=== PATIENT | male | born 1950 | race Caucasian/White ===

== ENCOUNTER 2016-06-27 18:10 | Inpatient (IN) | payer BC ==
[2016-06-27 18:31] LABS: Anisocytosis Slight; Basophils % (A) 0 %; CHCM 30.7; Eosinophils % (A) 0 %; HCT 26.8 % (39.0-53.0); HDW 2.34; HGB 8.6 gm/dL (13.0-17.5); Hypochromasia Slight; Luc # (Auto) 0.03; Luc % (Auto) 2; Lymphocytes # (A) 0.3 k/uL (1.0-4.8); Lymphocytes % (A) 19 %; MCH 29.3 pg (25.0-35.0); MCHC 31.9 g/dL (31.0-37.0); MCV 91.8 fL (80.0-100.0); Mean Platelet Volume 8.2; Monocytes % (A) 3 %; Neutrophils # (A) 1.1 k/uL (1.3-7.7); Neutrophils % (A) 76 %; RBC 2.92 m/uL (4.30-5.90); RDW 16.2 % (11.5-15.5); WBC (Perox) 1.49
[2016-06-27 18:35] LABS: WBC 1.4 k/uL (3.8-10.6)
--- NOTE | 2016-06-27 18:35 | ED ---
GI Bleed HPI - General Stated complaint: GI Bleed Time Seen by Provider: 06/27/16 18:10 Source: patient, EMS, RN notes reviewed Mode of arrival: EMS Limitations: no limitations - History of Present Illness Initial comments: Is a 66-year-old male with a history of colon cancer who is on chemotherapy who they say chemotherapy today who states he had the onset of blood per rectum today he was brought in by EMS for evaluation. He has had some left lower quadrant pain he had some nausea and vomiting last couple days no blood however. No other complaints he has had this before apparently. He wanted to get it before got too bad. He denies any chest pain shortness breath or dizziness at this time MD complaint: blood streaked stool - Related Data Home Medications Medication Instructions Recorded Confirmed ALPRAZolam [Xanax] 1 mg PO BID PRN 04/07/16 06/27/16 Diphenoxylate HCl/Atropine 2 tab PO BID PRN 04/07/16 06/27/16 [Lomotil] Metoprolol Tartrate [Lopressor] 150 mg PO BID 04/07/16 06/27/16 Pantoprazole Sodium [Protonix] 40 mg PO DAILY 04/07/16 06/27/16 Rivaroxaban [Xarelto] 20 mg PO HS 04/07/16 06/27/16 Zolpidem [Ambien] 10 mg PO HS 04/07/16 06/27/16 Fenofibrate,Micronized 134 mg PO QAM 04/08/16 06/27/16 [Fenofibrate] Lisinopril [Zestril] 2.5 mg PO DAILY 06/27/16 06/27/16 Prochlorperazine [Compazine] 10 mg PO Q6H PRN 06/27/16 06/27/16 fentaNYL 75MCG/HR PATCH [Duragesic 1 patch TRANSDERM Q72H 06/27/16 06/27/16 75MCG/HR] oxyCODONE-APAP 10-325MG [Percocet 1 tab PO Q4H PRN 06/27/16 06/27/16 10-325 mg] Allergies Allergy/AdvReac Type Severity Reaction Status Date / Time No Known Allergies Allergy Verified 06/27/16 18:44 Review of Systems ROS Statement: Those systems with pertinent positive or pertinent negative responses have been documented in the HPI. ROS Other: All systems not noted in ROS Statement are negative. Past Medical History Past Medical History: Atrial Fibrillation, Cancer, Deep Vein Thrombosis (DVT), Hypertension Additional Past Medical History / Comment(s): colon CA, former heavy drinker, GI bleed History of Any Multi-Drug Resistant Organisms: None Reported Additional Past Surgical History / Comment(s): part of bowel removed Past Anesthesia/Blood Transfusion Reactions: No Reported Reaction Past Psychological History: No Psychological Hx Reported Smoking Status: Former smoker Past Alcohol Use History: Heavy Past Drug Use History: None Reported - Past Family History Father History Unknown: Yes Mother History Unknown: Yes General Exam - General Exam Comments Initial Comments: This is a well-developed well-nourished awake alert oriented x 3 male Limitations: no limitations General appearance: alert, in no apparent distress Head exam: Present: atraumatic, normocephalic, normal inspection Eye exam: Present: PERRL, EOMI, other (Pale conjunctiva). Absent: scleral icterus, conjunctival injection, periorbital swelling ENT exam: Present: normal exam, mucous membranes moist Neck exam: Present: normal inspection. Absent: tenderness, meningismus, lymphadenopathy Respiratory exam: Present: normal lung sounds bilaterally. Absent: respiratory distress, wheezes, rales, rhonchi, stridor Cardiovascular Exam: Present: regular rate, normal rhythm, normal heart sounds. Absent: systolic murmur, diastolic murmur, rubs, gallop, clicks GI/Abdominal exam: Present: soft, tenderness (Mild left lower quadrant tenderness palpation no guarding or rebound.), normal bowel sounds. Absent: distended, guarding, rebound, rigid Rectal exam: Present: heme (+) stool, bloody stool (Burgundy-colored stool erythema around the anal verge with skin breakdown noted) Extremities exam: Present: normal inspection, full ROM, normal capillary refill. Absent: tenderness, pedal edema, joint swelling, calf tenderness Back exam: Present: normal inspection Neurological exam: Present: alert, oriented X3, CN II-XII intact Psychiatric exam: Present: normal affect, normal mood Skin exam: Present: warm, dry, intact, pallor. Absent: rash Course Vital Signs 06/27/16 06/27/16 06/27/16 18:13 18:43 19:13 Temperature 97.5 F L Pulse Rate 82 82 78 Respiratory 18 Rate Blood Pressure 120/75 160/96 152/78 O2 Sat by Pulse 100 99 100 Oximetry 06/27/16 06/27/16 20:13 20:49 Temperature Pulse Rate 80 78 Respiratory 20 Rate Blood Pressure 127/85 150/82 O2 Sat by Pulse 100 100 Oximetry - Reevaluation(s) Reevaluation #1: 06/27/16 20:54 Patient urinated and did also had hematuria which was just discovered at this time. He had not had it previously. Medical Decision Making - Medical Decision Making I did discuss the findings with the patient and with Dr. Acharya the patient will be admitted with consultation by - Lab Data Result diagrams: 06/27/16 18:21 06/27/16 18:21 Lab Results 06/27/16 06/27/16 06/27/16 Range/Units 18:21 18:21 18:21 WBC 1.4 L* (3.8-10.6) k/uL RBC 2.92 L (4.30-5.90) m/uL Hgb 8.6 L (13.0-17.5) gm/dL Hct 26.8 L (39.0-53.0) % MCV 91.8 (80.0-100.0) fL MCH 29.3 (25.0-35.0) pg MCHC 31.9 (31.0-37.0) g/dL RDW 16.2 H (11.5-15.5) % Plt Count 130 L (150-450) k/uL Neutrophils % 76 % Lymphocytes % 19 % Monocytes % 3 % Eosinophils % 0 % Basophils % 0 % Neutrophils # 1.1 L (1.3-7.7) k/uL Lymphocytes # 0.3 L (1.0-4.8) k/uL Monocytes # 0.0 (0-1.0) k/uL Eosinophils # 0.0 (0-0.7) k/uL Basophils # 0.0 (0-0.2) k/uL Hypochromasia Slight Anisocytosis Slight PT (9.0-12.0) sec INR (<1.1) APTT (22.0-30.0) sec Sodium 139 (137-145) mmol/L Potassium 4.3 (3.5-5.1) mmol/L Chloride 106 (98-107) mmol/L Carbon Dioxide 25 (22-30) mmol/L Anion Gap 8 mmol/L BUN 14 (9-20) mg/dL Creatinine 0.79 (0.66-1.25) mg/dL Est GFR (MDRD) Af Amer >60 (>60 ml/min/1.73 sqM) Est GFR (MDRD) Non-Af >60 (>60 ml/min/1.73 sqM) Glucose 108 H (74-99) mg/dL Calcium 7.9 L (8.4-10.2) mg/dL Magnesium 1.0 L* (1.6-2.3) mg/dL Total Bilirubin 0.8 (0.2-1.3) mg/dL AST 32 (17-59) U/L ALT 26 (21-72) U/L Alkaline Phosphatase 60 (38-126) U/L Total Creatine Kinase 40 L (55-170) U/L CK-MB (CK-2) 0.2 (0.0-2.4) ng/mL CK-MB (CK-2) Rel Index 0.5 Troponin I <0.012 (0.000-0.034) ng/mL Total Protein 5.5 L (6.3-8.2) g/dL Albumin 2.7 L (3.5-5.0) g/dL Stool Occult Blood (Negative) Blood Type Blood Type Confirm Blood Type Recheck Antibody Screen Spec Expiration Date 06/27/16 06/27/16 06/27/16 Range/Units 18:21 18:21 19:32 WBC (3.8-10.6) k/uL RBC (4.30-5.90) m/uL Hgb (13.0-17.5) gm/dL Hct (39.0-53.0) % MCV (80.0-100.0) fL MCH (25.0-35.0) pg MCHC (31.0-37.0) g/dL RDW (11.5-15.5) % Plt Count (150-450) k/uL Neutrophils % % Lymphocytes % % Monocytes % % Eosinophils % % Basophils % % Neutrophils # (1.3-7.7) k/uL Lymphocytes # (1.0-4.8) k/uL Monocytes # (0-1.0) k/uL Eosinophils # (0-0.7) k/uL Basophils # (0-0.2) k/uL Hypochromasia Anisocytosis PT 20.6 H (9.0-12.0) sec INR 2.1 (<1.1) APTT 36.2 H (22.0-30.0) sec Sodium (137-145) mmol/L Potassium (3.5-5.1) mmol/L Chloride (98-107) mmol/L Carbon Dioxide (22-30) mmol/L Anion Gap mmol/L BUN (9-20) mg/dL Creatinine (0.66-1.25) mg/dL Est GFR (MDRD) Af Amer (>60 ml/min/1.73 sqM) Est GFR (MDRD) Non-Af (>60 ml/min/1.73 sqM) Glucose (74-99) mg/dL Calcium (8.4-10.2) mg/dL Magnesium (1.6-2.3) mg/dL Total Bilirubin (0.2-1.3) mg/dL AST (17-59) U/L ALT (21-72) U/L Alkaline Phosphatase (38-126) U/L Total Creatine Kinase (55-170) U/L CK-MB (CK-2) (0.0-2.4) ng/mL CK-MB (CK-2) Rel Index Troponin I (0.000-0.034) ng/mL Total Protein (6.3-8.2) g/dL Albumin (3.5-5.0) g/dL Stool Occult Blood (Negative) Blood Type A Positive Blood Type Confirm A Positive Blood Type Recheck CABO Indicated Antibody Screen NEGATIVE Spec Expiration Date 06/30/2016 - 232006/27/16 Range/Units 20:40 WBC (3.8-10.6) k/uL RBC (4.30-5.90) m/uL Hgb (13.0-17.5) gm/dL Hct (39.0-53.0) % MCV (80.0-100.0) fL MCH (25.0-35.0) pg MCHC (31.0-37.0) g/dL RDW (11.5-15.5) % Plt Count (150-450) k/uL Neutrophils % % Lymphocytes % % Monocytes % % Eosinophils % % Basophils % % Neutrophils # (1.3-7.7) k/uL Lymphocytes # (1.0-4.8) k/uL Monocytes # (0-1.0) k/uL Eosinophils # (0-0.7) k/uL Basophils # (0-0.2) k/uL Hypochromasia Anisocytosis PT (9.0-12.0) sec INR (<1.1) APTT (22.0-30.0) sec Sodium (137-145) mmol/L Potassium (3.5-5.1) mmol/L Chloride (98-107) mmol/L Carbon Dioxide (22-30) mmol/L Anion Gap mmol/L BUN (9-20) mg/dL Creatinine (0.66-1.25) mg/dL Est GFR (MDRD) Af Amer (>60 ml/min/1.73 sqM) Est GFR (MDRD) Non-Af (>60 ml/min/1.73 sqM) Glucose (74-99) mg/dL Calcium (8.4-10.2) mg/dL Magnesium (1.6-2.3) mg/dL Total Bilirubin (0.2-1.3) mg/dL AST (17-59) U/L ALT (21-72) U/L Alkaline Phosphatase (38-126) U/L Total Creatine Kinase (55-170) U/L CK-MB (CK-2) (0.0-2.4) ng/mL CK-MB (CK-2) Rel Index Troponin I (0.000-0.034) ng/mL Total Protein (6.3-8.2) g/dL Albumin (3.5-5.0) g/dL Stool Occult Blood Positive (Negative) Blood Type Blood Type Confirm Blood Type Recheck Antibody Screen Spec Expiration Date - EKG Data -: EKG Interpreted by Me (Atrial fibrillation rate of 80 QRS of 86 QT/QTC of 42 09/24/1960 low-voltag) - Radiology Data Radiology results: report reviewed (Did review the imaging and report or is evidence of a mass left lower quadrant patient does seem aware this), image reviewed Disposition Clinical Impression: Hematochezia, Colon cancer, Anemia Disposition: ADMITTED IP TO THIS HOSP Condition: Stable
[2016-06-27 18:40] LABS: ALT 26 U/L (21-72); AST 32 U/L (17-59); Alkaline Phosphatase 60 U/L (38-126); Anion Gap 8 mmol/L; Blood Urea Nitrogen 14 mg/dL (9-20); Calcium 7.9 mg/dL (8.4-10.2); Carbon Dioxide 25 mmol/L (22-30); Chloride 106 mmol/L (98-107); Glucose 108 mg/dL (74-99); Non-African American GFR(MDRD) >60 (>60 ml/min/1.73 sqM); Potassium 4.3 mmol/L (3.5-5.1); Sodium 139 mmol/L (137-145); Total Bilirubin 0.8 mg/dL (0.2-1.3); Total Protein 5.5 g/dL (6.3-8.2)
[2016-06-27] MEDS: SODIUM CHLORIDE 0.9% 1,000 ML IV STA (18:40)
--- NOTE | 2016-06-27 18:49 | XR ---
EXAMINATION TYPE: XR abdomen 1V DATE OF EXAM: 06/27/2016 6:37 PM COMPARISON: NONE HISTORY: Rectal bleeding TECHNIQUE: 2 views FINDINGS: The bowel gas pattern is normal. There is no sign of intestinal obstruction or pneumoperito neum. Fecal pattern is normal. There are multiple surgical clips in the pelvis on the left side. Lung bases are clear of consolidation. There are no pathologic calcifications over the kidneys. IMPRESSION: Nonacute abdomen.
[2016-06-27 18:56] LABS: INR 2.1 (<1.1); Partial Thromboplastin Time 36.2 sec (22.0-30.0); Prothrombin Time 20.6 sec (9.0-12.0)
[2016-06-27 19:10] LABS: Creatine Kinase 40 U/L (55-170)
[2016-06-27 19:23] LABS: Creatine Kinase MB 0.2 ng/mL (0.0-2.4); Troponin I <0.012 ng/mL (0.000-0.034)
[2016-06-27] MEDS: MAGNESIUM SULFATE-D5W PMX 1 GM in DEXTROSE/WATER 1 100ML.BAG IVPB SCH ×2 (19:47→20:51)
--- NOTE | 2016-06-27 20:26 | CT ---
EXAMINATION TYPE: CT abdomen pelvis wo con DATE OF EXAM: 06/27/2016 8:01 PM COMPARISON: NONE HISTORY: PT states of blood in stool. Hx of colon CA and part of bowel removed. CT DLP: 356.1 mGycm Automated exposure control for dose reduction was used. TECHNIQUE: Helical acquisition of images was performed from the lung bases through the pelvis. FINDINGS: Lung bases are clear of consolidation. There is no pleural effusion. Heart is enlarged. There is no p ericardial effusion. There is mild ascites. Liver shows no focal defect. Spleen shows no focal defect. There is atheroscle rotic vascular calcification. Gallbladder is dilated. Gallbladder measures 5 cm in diameter. Bile mecca ts are not dilated. There is no sign of a pancreatic mass. There is an approximate 9 x 6 cm soft tissue mass involving the left lower quadrant that is posterior and lateral to the lower descending colon. There is number Katie inferior vena cava filter noted. Ther e is moderate atherosclerotic vascular calcification involving the abdominal aorta and iliac arteries . Bladder distends smoothly. There is apparent lateral displacement of the left psoas muscle. There i s a left paraspinal area of density contiguous with the left lower quadrant mass. There is a right inguinal hernia that appears to contain the right colon. I see no bowel obstruction. There are no dilated loops. The lower extent of the hernia is not demonstrated. There is apparent ri ght scrotal hydrocele. There is a mild left-sided hydronephrosis and hydroureter. This is probably due to obstruction by the left lower quadrant mass. The right kidney shows normal size without hydronephrosis.. IMPRESSION: THERE IS A LARGE MASS IN THE LEFT LOWER QUADRANT WITH SURGICAL CLIPS THAT COULD BE PRIMARY COLON TUMO R OR RECURRENT TUMOR. THERE IS MASS EXTENSION INTO THE LEFT PARASPINAL REGION AND DISPLACEMENT OF THE PSOAS MUSCLE. THERE IS INVOLVEMENT OF THE LEFT URETER WITH OBSTRUCTION OF LEFT URETER AND LEFT-SIDED HYDRONEPHROSIS. MODERATE FREE FLUID WITH A RIGHT-SIDED SCROTAL HYDROCELE AND LARGE SCROTAL HERNIA THAT CONTAINS BOWEL . CARDIOMEGALY. EXTENSIVE ATHEROSCLEROTIC VASCULAR DISEASE. DILATED GALLBLADDER SUGGESTIVE OF CHOLECYSTITIS.
[2016-06-27] MEDS ORDERED: ONDANSETRON 4 MG/2 ML VIAL IVP PRN (20:55)
[2016-06-27] MEDS ORDERED: NALOXONE 0.4 MG/ML 1 ML VIAL IV PRN (20:55)
[2016-06-27] MEDS ORDERED: ALPRAZolam 0.5 MG TAB PO PRN (21:00)
[2016-06-27] MEDS ORDERED: SODIUM CHLORIDE 0.9% 1,000 ML IV SCH (21:00)
[2016-06-27] MEDS ORDERED: ZOLPIDEM 10 MG TAB PO SCH (21:00)
--- NOTE | 2016-06-27 21:55 | US ---
EXAMINATION TYPE: US abdomen limited DATE OF EXAM: 06/27/2016 9:34 PM COMPARISON: CT in PACS CLINICAL HISTORY: Pain. Blood in stool, history of colon CA. Mass visualized in the LLQ on CT scan to day. TECHNOLOGIST IMPRESSION: Heterogeneous mass like area visualized within the LLQ measuring 11.7 x 8.8 x 8.3 cm. There is venous and arterial flow visualized within this area. Unable to visualize free f luid that was seen on CT IMPRESSION: Large left lower quadrant mass appears solid and there is no evidence of a retroperitone al hematoma. This is consistent with a tumor mass.
[2016-06-27 23:45] VITALS: BMI 19.6
[2016-06-28 01:00] LABS: Anisocytosis Slight; Basophils % (A) 0 %; CH 28.1; CHCM 30.5; Eosinophils % (A) 0 %; HCT 26.4 % (39.0-53.0); HDW 2.22; HGB 8.1 gm/dL (13.0-17.5); Hypochromasia Slight; Luc # (Auto) 0.09; Luc % (Auto) 4; Lymphocytes # (A) 0.5 k/uL (1.0-4.8); Lymphocytes % (A) 19 %; MCH 28.3 pg (25.0-35.0); MCHC 30.6 g/dL (31.0-37.0); MCV 92.5 fL (80.0-100.0); Mean Platelet Volume 9.1; Monocytes # (A) 0.1 k/uL (0-1.0); Monocytes % (A) 5 %; Neutrophils # (A) 1.8 k/uL (1.3-7.7); Neutrophils % (A) 72 %; RBC 2.85 m/uL (4.30-5.90); RDW 16.1 % (11.5-15.5); WBC 2.4 k/uL (3.8-10.6); WBC (Perox) 2.69
[2016-06-28] MEDS: PANTOPRAZOLE 40 MG/10 ML VIAL IV SCH ×2 (01:46→08:33)
[2016-06-28] MEDS: oxyCODONE-APAP 10-325MG 1 EACH TAB PO PRN ×2 (02:24→08:32)
[2016-06-28 03:25] LABS: Glucose,Whole Blood 102 mg/dL (75-99)
[2016-06-28] MEDS ORDERED: NALOXONE 0.4 MG/ML 1 ML VIAL IV PRN (03:34)
[2016-06-28] MEDS: SODIUM CHLORIDE 0.9% 1,000 ML IV STA (03:43)
[2016-06-28] MEDS: METOPROLOL TARTRATE 50 MG TAB PO SCH ×2 (04:07→08:36)
[2016-06-28 05:20] LABS: Anion Gap 7 mmol/L; Blood Urea Nitrogen 13 mg/dL (9-20); Calcium 8.2 mg/dL (8.4-10.2); Carbon Dioxide 26 mmol/L (22-30); Chloride 107 mmol/L (98-107); Glucose 96 mg/dL (74-99); Magnesium 1.5 mg/dL (1.6-2.3); Non-African American GFR(MDRD) >60 (>60 ml/min/1.73 sqM); Phosphorous 2.6 mg/dL (2.5-4.5); Potassium 3.4 mmol/L (3.5-5.1); Sodium 140 mmol/L (137-145)
[2016-06-28] MEDS ORDERED: Potassium Replacement Protocol 1 EACH MISC MISCELLANE PRN (05:31)
[2016-06-28] MEDS ORDERED: Magnesium Replacement Protocol 1 EACH MISC MISCELLANE PRN (05:31)
[2016-06-28 05:36] LABS: Anisocytosis Slight; Basophils % (A) 0 %; CHCM 30.5; Eosinophils % (A) 0 %; HCT 24.1 % (39.0-53.0); HDW 2.19; HGB 7.5 gm/dL (13.0-17.5); Hypochromasia Slight; Luc # (Auto) 0.09; Luc % (Auto) 4; Lymphocytes # (A) 0.5 k/uL (1.0-4.8); Lymphocytes % (A) 21 %; MCH 28.8 pg (25.0-35.0); MCHC 31.3 g/dL (31.0-37.0); MCV 92.1 fL (80.0-100.0); Mean Platelet Volume 8.2; Monocytes # (A) 0.1 k/uL (0-1.0); Monocytes % (A) 6 %; Neutrophils # (A) 1.7 k/uL (1.3-7.7); Neutrophils % (A) 70 %; RBC 2.62 m/uL (4.30-5.90); RDW 16.3 % (11.5-15.5); WBC 2.4 k/uL (3.8-10.6); WBC (Perox) 2.44
[2016-06-28] MEDS: MAGNESIUM SULFATE-D5W PMX 1 GM in DEXTROSE/WATER 1 100ML.BAG IVPB SCH ×2 (06:07→08:36)
[2016-06-28] MEDS: POTASSIUM CHLORIDE ER 20 MEQ TAB.ER PO SCH ×2 (06:07→08:32)
[2016-06-28] MEDS ORDERED: LISINOPRIL 2.5 MG TAB PO SCH (09:00)
--- NOTE | 2016-06-28 09:40 | P.CNPUL ---
History of Present Illness Consult date: 06/28/16 Reason for consult: other Chief complaint: Gastrointestinal bleed History of present illness: This is a 66-year-old male who was admitted to the emergency department. He Axid was admitted to the sixth floor then an 18 was called and he was transferred here to the ICU. I spoke to the 18th nurse last night. He came in primarily with complaints of bleeding from the rectum. The patient that was initially admitted to 6 selective. On forcibly he had some additional bleeding and because of his history and because of his the fact that he was on Zarrella toe, I decided to move him here to the ICU. The patient never received any blood. Patient's hemodynamically stable. First colon cancer he said previous colectomy radiation therapy now chemotherapy. Had recent chemotherapy with one of the oncologist. His primary doctor is Dr. Joaquim Martinez. The patient has issues on is ready to be discharged home. Feeling well. No additional bleeding. No pain. No fever no chills. No nausea vomiting or diarrhea. Review of Systems A 12 point review of system is positive for a GI bleed. Other than that, the review of systems is unremarkable. Past Medical History Past Medical History: Atrial Fibrillation, Cancer, Deep Vein Thrombosis (DVT), Hypertension Additional Past Medical History / Comment(s): colon CA, former heavy drinker, GI bleed History of Any Multi-Drug Resistant Organisms: None Reported Past Surgical History: Bowel Resection, Pacemaker Additional Past Surgical History / Comment(s): colon surgery x2-approx 07/2015, IVC filter-2015 Past Anesthesia/Blood Transfusion Reactions: No Reported Reaction Type of Cardiac Device: Unknown Device Placement Date:: 2012 Past Psychological History: Anxiety, Depression Smoking Status: Current every day smoker Past Alcohol Use History: Heavy Past Drug Use History: None Reported - Past Family History Father History Unknown: Yes Family Medical History: No Reported History Mother History Unknown: Yes Family Medical History: No Reported History Medications and Allergies Home Medications Medication Instructions Recorded Confirmed Type ALPRAZolam [Xanax] 1 mg PO BID PRN 04/07/16 06/27/16 History Diphenoxylate HCl/Atropine 2 tab PO BID PRN 04/07/16 06/27/16 History [Lomotil] Metoprolol Tartrate [Lopressor] 150 mg PO BID 04/07/16 06/27/16 History Pantoprazole Sodium [Protonix] 40 mg PO DAILY 04/07/16 06/27/16 History Rivaroxaban [Xarelto] 20 mg PO HS 04/07/16 06/27/16 History Zolpidem [Ambien] 10 mg PO HS 04/07/16 06/27/16 History Fenofibrate,Micronized 134 mg PO QAM 04/08/16 06/27/16 History [Fenofibrate] Lisinopril [Zestril] 2.5 mg PO DAILY 06/27/16 06/27/16 History Prochlorperazine [Compazine] 10 mg PO Q6H PRN 06/27/16 06/27/16 History fentaNYL 75MCG/HR PATCH [Duragesic 1 patch TRANSDERM Q72H 06/27/16 06/27/16 History 75MCG/HR] oxyCODONE-APAP 10-325MG [Percocet 1 tab PO Q4H PRN 06/27/16 06/27/16 History 10-325 mg] Allergies Allergy/AdvReac Type Severity Reaction Status Date / Time No Known Allergies Allergy Verified 06/27/16 18:44 Physical Exam Osteopathic Statement: *. No significant issues noted on an osteopathic structural exam other than those noted in the History and Physical/Consult. Vitals: Vital Signs Temp Pulse Pulse Resp BP BP Pulse Ox 06/28/16 06:30 77 8 L 150/97 98 06/28/16 06:00 85 24 155/92 99 06/28/16 05:30 60 145/80 06/28/16 05:00 71 12 135/88 100 06/28/16 04:30 68 16 129/77 99 06/28/16 04:00 97.8 F 69 74 13 151/81 98 06/28/16 03:55 97.8 F 74 11 L 151/81 99 06/28/16 03:50 82 16 149/84 99 06/28/16 03:45 71 19 149/84 99 06/28/16 03:40 77 10 L 149/84 99 06/28/16 03:35 79 13 149/84 100 06/28/16 03:30 80 19 173/107 100 06/28/16 03:25 88 30 H 173/107 100 06/28/16 03:20 56 L 24 173/107 99 06/28/16 03:15 17 173/107 98 06/28/16 03:11 5 L 06/27/16 23:11 96.7 F L 74 18 137/78 99 06/27/16 22:54 96.8 F L 84 18 138/90 96 06/27/16 22:13 84 18 131/76 97 06/27/16 21:43 76 18 118/77 96 Intake and Output 06/27/16 06/28/16 06/28/16 22:59 06:59 14:59 Intake Total 300 100 Output Total 0 0 Balance 300 100 Intake: IV 300 100 Sodium Chloride 0.9% 1, 300 100 000 ml @ 100 mls/hr IV . Q10H STA Rx#:[id number] Oral 0 Output: Urine 0 0 Other: Voiding Method Toilet Urinal # Voids 1 # Bowel Movements 1 Weight 71 kg No acute distress, oriented 3. The patient sitting at the bedside with issues. He states he wants to go home. HEENT examination is grossly unremarkable. Mucous membranes are moist. No oral lesions. Neck supple. Full range of motion. No adenopathy or thyromegaly. Cardiovascular examination reveals regular rhythm rate. S1-S2 normal. No S3- S4 or murmur. Lungs reveal clear breath sounds. No wheezes rhonchi or crackles. Abdomen soft bowel sounds are heard. Extremities are intact. Results - Laboratory Findings CBC and BMP: 06/28/16 04:45 06/28/16 04:45 PT/INR, D-dimer PT 20.6 sec (9.0-12.0) H 06/27/16 18:21 INR 2.1 (<1.1) 06/27/16 18:21 Abnormal lab findings: Abnormal Labs 06/28/16 06/28/16 06/28/16 00:38 03:23 04:45 WBC 2.4 L RBC 2.85 L Hgb 8.1 L Hct 26.4 L MCHC 30.6 L RDW 16.1 H Plt Count 144 L Lymphocytes # 0.5 L Potassium 3.4 L POC Glucose (mg/dL) 102 H Calcium 8.2 L Magnesium 1.5 L 06/28/16 04:45 WBC 2.4 L RBC 2.62 L Hgb 7.5 L Hct 24.1 L MCHC RDW 16.3 H Plt Count 118 L Lymphocytes # 0.5 L Potassium POC Glucose (mg/dL) Calcium Magnesium - Diagnostic Findings Chest x-ray: image reviewed (Labs x-rays and medications are all reviewed.) Assessment and Plan (1) GI bleed Status: Acute (2) Anemia Status: Acute (3) Colon cancer Status: Acute (4) Hematochezia Status: Acute Plan: Plan The patient's doing well. The patient's or receiving some IV fluids. We'll continue to watch the hemoglobin. Medications labs are reviewed. The patient wants be discharged home. Feels that the bleeding was secondary to his recent chemotherapy. No additional recommendations are made. He's been hemodynamically stable here. Time with Patient: Greater than 30
[2016-06-28 12:45] VITALS: BP 158/98; PULSE 87; RESP 18; TEMP 98
[2016-06-28] MEDS ORDERED: PHYTONADIONE ORAL 5 MG/5 ML ORAL.SYRG PO STA (14:24)
--- NOTE | 2016-06-28 16:46 | HP ---
This dictation is both H and P and discharge summary. Patient is a 66-year-old who came in with complaints of lower GI bleed. Patient had about 2 episodes at home and 1 episode here and patient had angela blood in the stools and a rectal exam from ER found to have some erosions in the rectal area. Patient occasionally gets constipated. I wanted to keep him here and watch him one more day. Patient is a does not have any more GI bleed except for some streaks of blood whenever he wipes, but patient does not stay in the hospital, wanted to be discharged. Patient is threatening to leave AMA. I will go ahead and discharge the patient I asked him to watch for any blood in the stools. If he has blood in the stools, patient has to come back. Patient is not thrombocytopenic, used to use Xarelto for his atrial fibrillation, which was discontinued because of his previous GI bleed, and patient is not on this medication anymore. Patient's platelet count is okay. Patient received his last chemotherapy for colon cancer about a couple days ago. Patient had abdominal CT done, which showed the cancerous lesions and the cancerous mass the abdomen along with a right-sided inguinal hernia and hydrocele and patient is otherwise hemodynamically stable. Hemoglobin is down to 7.5 from 8.2 when he came in. His baseline hemoglobin appears to be 8.7. Patient has hypokalemia and hypomagnesemia which are being supplemented and patient's INR is still elevated at 2.1, probably due to nutritional vitamin K deficiency. I will give him a dose of vitamin K before he goes. As patient is not in any A. fib., it is probably due to nutritional deficiency of vitamin K and patient will follow with Dr. Krueger as an outpatient. Ideally, the patient needs to stay one more day at least to watch for any bleeding and most probably will need evaluation by Gastroenterology, but patient is not willing to stay here. I counseled him that he needs to take MiraLAX and should not get constipated, which will start his GI bleed again. REVIEW OF SYSTEMS: CONSTITUTIONAL: No fever, no malaise, no fatigue. HEENT: No recent visual problems or hearing problems. Denied any sore throat. CARDIOVASCULAR: No chest pain, orthopnea, PND, no palpitations, no syncope. PULMONARY: No shortness of breath, no cough, no hemoptysis. GASTROINTESTINAL: As described in HPI. NEUROLOGICAL: No headaches, no weakness, no numbness. HEMATOLOGICAL: Denies any bleeding or petechiae. GENITOURINARY: Denies any burning micturition, frequency, or urgency. MUSCULOSKELETAL/RHEUMATOLOGICAL: Denies any joint pain, swelling, or any muscle pain. ENDOCRINE: Denies any polyuria or polydipsia. The rest of the 14 point review of systems is negative. PAST MEDICAL HISTORY: Atrial fibrillation, not on anticoagulation at this point of time. Patient has a DVT in the past as well as hypertension. Patient has an active after that is colon cancer for which patient received chemotherapy, anxiety, depression. The patient does smoke, continues to smoke. Denied any alcohol abuse or any drug abuse. FAMILY HISTORY: Unknown at this time and irrelevant at this point of time. Home medications include: 1. Xanax. 2. Diphenoxylate atropine that is Lomotil, which is being discontinued. 3. Metoprolol and 4. Pantoprazole. 5. Ambien. 6. Fenofibrate. 7. Lisinopril 5. 8. Compazine. 9. Fentanyl patch and 10. Oxycodone. 11. Acetaminophen. ALLERGIES: No known drug allergies. PHYSICAL EXAMINATION: VITAL SIGNS: Temperature 98.0, pulse of 87, respiratory rate of 18, blood pressure is 158/98, saturating at 98% on room air. GENERAL: Patient looks a little bit pale. HEENT: Pupils are round and equally reacting to light. EOMI. No scleral icterus. Patient has conjunctival pallor. Normocephalic, atraumatic. No pharyngeal erythema. No thyromegaly. CARDIOVASCULAR: S1 and S2 present. No murmurs, rubs, or gallops. PULMONARY: Chest is clear to auscultation, no wheezing or crackles. ABDOMEN: Soft, nontender, nondistended, normoactive bowel sounds. No palpable organomegaly. MUSCULOSKELETAL: No joint swelling or deformity. EXTREMITIES: No cyanosis, clubbing, or pedal edema. NEUROLOGICAL: Gross neurological examination did not reveal any focal deficits. SKIN: No rashes. LABORATORY DATA: CBC, CMP are abnormal for mildly low WBC count of 2400 from chemotherapy. It is and actually going up. Platelet count of 182,000 can be due to chemotherapy along with acute GI bleed. Magnesium was corrected after 1.5 and potassium was corrected after 3.4. ASSESSMENT AND PLAN: 1. Lower gastrointestinal bleed, probably due to constipation and erosions. I did not do any rectal exam, as it was already done in emergency room and patient may have hemorrhoids. I asked him to avoid constipation with [id number] MiraLax and Colace and Lomotil will be discontinued. 2. Atrial fibrillation, rate controlled, not on anticoagulation at this time because of the previous gastrointestinal bleed and patient also has deep venous thrombosis in the past. 3. Colon cancer. Completed his chemotherapy a couple days ago. 4. Hypertension. 5. Electrolyte abnormalities, including hypomagnesemia, were corrected and patient will follow with his primary care physician Dr. Bruno March, and his oncologist as an outpatient. Patient is not willing to stay in the hospital at any rate.
--- NOTE | 2016-07-02 19:38 | P.CONS ---
History of Present Illness - Reason for Consult Consult date: 06/28/16 Metastatic colorectal cancer, GI bleed - History of Present Illness The patient is a 65 year old WM with a complicated oncological history. He was diagnosed with rectal sigmoid cancer in 09/01 and had resection in 09/01, with pathology revealing a [id number] lesion with 2 positive nodes. He refused chemotherapy at that time. He then developed recurrence in the left inguial area that grew in size over time. Biopsy was positive for recurrence. He had chemotherapy with FOLFOX in the later part of 2013, and then radiation in [id number], at [place]. He apparently had significant tolerance issues with chemotherapy, including weakness, weight loss, and neuropathy. He was continued on surveilence with a CT scan in 09/21/14 with marked improvement in the left inguinal mass. He presented in 05/08 with GI bleeding, while on Xarelto for a recently diagnosed LLE DVT. He was found to have a recurrence 20 cm from the anal verge on colonoscopy. PET scan in 06/08 showed uptake in 2 distinct retroperitoneal, and peritoneal masses. Chemotherapy was recommended but he refused the same. He was evaluated at [facility]. Given limited sites of disease, a surgical resection was attempted on 09/07/15. This revealed a very large mass in LLQ arising from the anastomotic site growing into the LL abdomen and pelvic side wall. No other areas of involvment was noted. The left colon was able to be resected. However the tumor could only be incompletely resected from the abdominal pelvic wall. Tumor was present in the retroperitoneaum which appeared to be direct extension of the main mass. Biopsy was positive for adenocarcinoma grade 2. 0/21 lymph nodes were involved. The patient was referred here as he wanted to have another opnion. He did want active treatment, and options were discussed. He was referred back to Dr Brooks in [place], who had treated him previously. He had a PET there, and had 1 cycle of infusional chemo in 02/05 ( ? FOLFIRI). His tolerance was very poor, and hospice was recommended. The pt slowly recovered, and decided to come back here to discuss other options. He did want active treatment and FOLFIRI was started back with dose reduction. He is s/p 3 cycles. However he was unable to tolerate this regimen due to severe diarrhea, weakness and poor appetite. Thus he was switched to Camptosar alone, on 06/06/16,a nd is s/p 2 cycles. Cycle 2 was administered on 06/27/16. The pt developed new onset of bright red blood per rectum, and presented to the ER. Hgb was 8.6, and gradually declined to 7.5. WBC was 1.4 and actually increased to 2.1. Plt were > 100. He was admitted for further evaluation and consult placed. The bleeding has ceased. Review of Systems Constitutional: Reports fatigue, Reports poor appetite, Reports weakness, Reports weight loss Eyes: denies blurred vision, denies pain Ears, nose, mouth and throat: Denies headache, Denies sore throat Cardiovascular: Reports dyspnea on exertion Respiratory: Reports dyspnea Gastrointestinal: Reports abdominal pain, Reports hematochezia Genitourinary: Reports as per HPI Musculoskeletal: Reports muscle weakness Integumentary: Denies pruritus, Denies rash Neurological: Reports weakness Psychiatric: Reports anxiety Endocrine: Reports fatigue, Reports weight change Hematologic/Lymphatic: Reports as per HPI Past Medical History Past Medical History: Atrial Fibrillation, Cancer, Deep Vein Thrombosis (DVT), Hypertension Additional Past Medical History / Comment(s): colon CA, former heavy drinker, GI bleed History of Any Multi-Drug Resistant Organisms: None Reported Past Surgical History: Bowel Resection, Pacemaker Additional Past Surgical History / Comment(s): colon surgery x2-approx 07/2015, IVC filter-2015 Past Anesthesia/Blood Transfusion Reactions: No Reported Reaction Type of Cardiac Device: Unknown Device Placement Date:: 2012 Past Psychological History: Anxiety, Depression Smoking Status: Current every day smoker Past Alcohol Use History: Heavy Past Drug Use History: None Reported - Past Family History Father History Unknown: Yes Family Medical History: No Reported History Mother History Unknown: Yes Family Medical History: No Reported History Medications and Allergies Home Medications Medication Instructions Recorded Confirmed Type ALPRAZolam [Xanax] 1 mg PO BID PRN 04/07/16 06/27/16 History Metoprolol Tartrate [Lopressor] 150 mg PO BID 04/07/16 06/27/16 History Pantoprazole Sodium [Protonix] 40 mg PO DAILY 04/07/16 06/27/16 History Zolpidem [Ambien] 10 mg PO HS 04/07/16 06/27/16 History Fenofibrate,Micronized 134 mg PO QAM 04/08/16 06/27/16 History [Fenofibrate] Lisinopril [Zestril] 2.5 mg PO DAILY 06/27/16 06/27/16 History Prochlorperazine [Compazine] 10 mg PO Q6H PRN 06/27/16 06/27/16 History fentaNYL 75MCG/HR PATCH [Duragesic 1 patch TRANSDERM Q72H 06/27/16 06/27/16 History 75MCG/HR] oxyCODONE-APAP 10-325MG [Percocet 1 tab PO Q4H PRN 06/27/16 06/27/16 History 10-325 mg] Allergies Allergy/AdvReac Type Severity Reaction Status Date / Time No Known Allergies Allergy Verified 06/27/16 18:44 Physical Exam Vitals: Vital Signs Temp Pulse Pulse Resp BP BP Pulse Ox 06/28/16 12:00 98 F 87 18 158/98 98 06/28/16 11:00 74 19 141/81 100 06/28/16 10:00 73 19 148/83 99 06/28/16 09:30 150/106 100 06/28/16 09:00 71 15 151/89 100 06/28/16 08:30 85 7 L 96 06/28/16 08:00 97.5 F L 72 16 147/87 100 06/28/16 07:30 64 10 L 125/73 97 06/28/16 07:00 79 10 L 146/89 100 06/28/16 06:30 77 8 L 150/97 98 06/28/16 06:00 85 24 155/92 99 06/28/16 05:30 60 145/80 06/28/16 05:00 71 12 135/88 100 06/28/16 04:30 68 16 129/77 99 06/28/16 04:00 97.8 F 69 74 13 151/81 98 06/28/16 03:55 97.8 F 74 11 L 151/81 99 06/28/16 03:50 82 16 149/84 99 06/28/16 03:45 71 19 149/84 99 06/28/16 03:40 77 10 L 149/84 99 06/28/16 03:35 79 13 149/84 100 06/28/16 03:30 80 19 173/107 100 06/28/16 03:25 88 30 H 173/107 100 06/28/16 03:20 56 L 24 173/107 99 06/28/16 03:15 17 173/107 98 06/28/16 03:11 5 L 06/27/16 23:11 96.7 F L 74 18 137/78 99 06/27/16 22:54 96.8 F L 84 18 138/90 96 06/27/16 22:13 84 18 131/76 97 06/27/16 21:43 76 18 118/77 96 Intake and Output 06/28/16 06/28/16 06/28/16 06:59 14:59 22:59 Intake Total 300 700 Output Total 0 150 Balance 300 550 Intake: IV 300 700 Sodium Chloride 0.9% 1, 300 700 000 ml @ 100 mls/hr IV . Q10H STA Rx#:[id number] Oral 0 Output: Urine 0 150 Other: Voiding Method Toilet Toilet Urinal Urinal # Voids 1 1 # Bowel Movements 1 Weight 71 kg - Constitutional General appearance: no acute distress - EENT Eyes: EOMI, PERRLA ENT: hearing grossly normal, normal oropharynx - Neck Neck: no lymphadenopathy Thyroid: bilateral: normal size - Respiratory Respiratory: bilateral: CTA - Cardiovascular Rhythm: regular Heart sounds: normal: S1, S2 - Gastrointestinal General gastrointestinal: normal bowel sounds, soft - Integumentary Integumentary: normal - Neurologic Neurologic: CNII-XII intact - Musculoskeletal Musculoskeletal: generalized weakness - Psychiatric Psychiatric: A&O x's 3, appropriate affect Results CBC & Chem 7: 06/28/16 04:45 06/28/16 04:45 Labs: Abnormal Lab Results - Last 24 Hours (Table) 06/28/16 06/28/16 06/28/16 Range/Units 00:38 03:23 04:45 WBC 2.4 L (3.8-10.6) k/uL RBC 2.85 L (4.30-5.90) m/uL Hgb 8.1 L (13.0-17.5) gm/dL Hct 26.4 L (39.0-53.0) % MCHC 30.6 L (31.0-37.0) g/dL RDW 16.1 H (11.5-15.5) % Plt Count 144 L (150-450) k/uL Lymphocytes # 0.5 L (1.0-4.8) k/uL Potassium 3.4 L (3.5-5.1) mmol/L POC Glucose (mg/dL) 102 H (75-99) mg/dL Calcium 8.2 L (8.4-10.2) mg/dL Magnesium 1.5 L (1.6-2.3) mg/dL 06/28/16 Range/Units 04:45 WBC 2.4 L (3.8-10.6) k/uL RBC 2.62 L (4.30-5.90) m/uL Hgb 7.5 L (13.0-17.5) gm/dL Hct 24.1 L (39.0-53.0) % MCHC (31.0-37.0) g/dL RDW 16.3 H (11.5-15.5) % Plt Count 118 L (150-450) k/uL Lymphocytes # 0.5 L (1.0-4.8) k/uL Potassium (3.5-5.1) mmol/L POC Glucose (mg/dL) (75-99) mg/dL Calcium (8.4-10.2) mg/dL Magnesium (1.6-2.3) mg/dL CT scan - abdomen: report reviewed CT scan - pelvis: report reviewed US - abdomen: report reviewed Assessment and Plan (1) GI bleed Narrative/Plan: The pt's site recurrence is in the pelvis. This is the most likely site of bleeding. Hgb drop is not major, and could partially even be due to chemo effect. His hemodynamics are stable. - The pt is quite anxious to go home, as the bleeding has ceased. As the site of the bleed is likely known ( as noted above) and the pt is already on treatment for the same, He is ok for discharge, whenever felt to be stable per the admitting service. Status: Acute (2) Colon cancer Narrative/Plan: His course is as described. He will resume f/u in the office as scheduled Status: Acute
== END 2016-06-28 13:32 | disposition home or self-care (01) | DRG 378 ==
LOC: EC 18:10 → 6SEL 20:57 → 6ICU 06-28 02:17
PROVIDERS: ADMIT Internal Medicine; ATTEND Internal Medicine
DX: K92.2 Gastrointestinal hemorrhage, unspecified (principal); C18.9 Malignant neoplasm of colon, unspecified; E83.42 Hypomagnesemia; I10 Essential (primary) hypertension; E56.1 Deficiency of vitamin K; D64.9 Anemia, unspecified; K59.00 Constipation, unspecified; E87.6 Hypokalemia; I48.91 Unspecified atrial fibrillation; K64.9 Unspecified hemorrhoids; R79.1 Abnormal coagulation profile; K40.90 Unilateral inguinal hernia, without obstruction or gangrene, not specified as recurrent; N43.3 Hydrocele, unspecified; R31.9 Hematuria, unspecified; R11.2 Nausea with vomiting, unspecified; E63.9 Nutritional deficiency, unspecified; F32.9 Major depressive disorder, single episode, unspecified; F41.9 Anxiety disorder, unspecified; F17.200 Nicotine dependence, unspecified, uncomplicated; Z90.49 Acquired absence of other specified parts of digestive tract; Z79.899 Other long term (current) drug therapy; Z86.718 Personal history of other venous thrombosis and embolism; Z79.891 Long term (current) use of opiate analgesic; Z92.3 Personal history of irradiation; Z87.19 Personal history of other diseases of the digestive system
CPT/HCPCS: 36415; 74000; 74176; 76705; 80048; 80053; 82272; 82550; 82553; 83735; 84100; 84484; 85025; 85610; 85730; 86850; 86900; 86901; 93005; 96361; 96365; 96366; 99285

== ENCOUNTER 2016-08-16 03:06 | Inpatient (IN) | payer BC ==
[2016-08-16 04:48] LABS: Glucose,Whole Blood 132 mg/dL (75-99)
[2016-08-16 05:46] LABS: CH 29.2; CHCM 31.7; HDW 2.48; MCH 30.4 pg (25.0-35.0); MCHC 32.7 g/dL (31.0-37.0); MCV 92.8 fL (80.0-100.0); Mean Platelet Volume 8.7; RBC 1.45 m/uL (4.30-5.90)
[2016-08-16 05:55] LABS: HCT 13.5 % (39.0-53.0); HGB 4.4 gm/dL (13.0-17.5)
[2016-08-16 06:01] LABS: INR 1.7 (<1.1); Partial Thromboplastin Time 26.9 sec (22.0-30.0); Prothrombin Time 16.6 sec (9.0-12.0)
[2016-08-16 06:09] LABS: Phosphorous 2.6 mg/dL (2.5-4.5); Total Bilirubin 0.4 mg/dL (0.2-1.3); Total Protein 4.1 g/dL (6.3-8.2)
[2016-08-16 06:12] LABS: Potassium 2.6 mmol/L (3.5-5.1)
[2016-08-16 06:13] LABS: Magnesium 0.9 mg/dL (1.6-2.3)
[2016-08-16] MEDS ORDERED: Magnesium Replacement Protocol 1 EACH MISC MISCELLANE PRN (06:28)
[2016-08-16] MEDS ORDERED: Potassium Replacement Protocol 1 EACH MISC MISCELLANE PRN ×2 (06:28→20:27)
[2016-08-16 07:12] LABS: Particle Count 117440; RBC,Urine >182 /hpf (0-5); WBC,Urine >182 /hpf (0-5)
[2016-08-16] MEDS: POTASSIUM CHLORIDE 10 MEQ, LIDOCAINE 2% INJ 10 MG in SODIUM CHLORIDE 0.9% 100 ML IV SCH ×5 (07:12→22:21)
[2016-08-16 07:15] LABS: UA Billing (MACRO vs. MICRO) MICRO
[2016-08-16] MEDS: MAGNESIUM SULFATE-D5W PMX 1 GM in DEXTROSE/WATER 1 100ML.BAG IVPB SCH ×6 (07:31→16:39)
--- NOTE | 2016-08-16 07:45 | XR ---
EXAMINATION TYPE: XR abdomen 1V DATE OF EXAM: 08/16/2016 7:05 AM COMPARISON: 06/27/2016 INDICATION: Abdomen pain TECHNIQUE: Single view abdomen supine view FINDINGS: Nonspecific bowel gas within small bowel loops as well as the colon. Psoas margins are normal. No organomegaly is present. Cholecystectomy clips are present. Additional surgical clips are present. A filter is present. No mas s effect is evident. No suspicious calcifications are evident. IMPRESSION: 1. Nonspecific abdomen
--- NOTE | 2016-08-16 07:48 | XR ---
EXAMINATION TYPE: XR chest 1V portable DATE OF EXAM: 08/16/2016 7:06 AM COMPARISON: 04/09/2016 INDICATION: Cough TECHNIQUE: Single frontal view of the chest is obtained. FINDINGS: The heart size is normal. The pulmonary vasculature is normal. The lungs are clear. Electronic device overlies left chest. Report is present on the right with the tip in superior vena c ninfa region. IMPRESSION: 1. No acute pulmonary process.
--- NOTE | 2016-08-16 13:40 | P.CNPUL ---
History of Present Illness Consult date: 08/16/16 Chief complaint: GI bleeding History of present illness: 2-10-bzeo-old male patient who got transferred from [facility] because of profound anemia and ongoing GI bleeding. 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 He is currently under the care of Dr. Kim. In summary, the patient has been initially diagnosed having rectosigmoid cancer in August 2011. He had T3 N1 M0 lesion with a positive lymph nodes. He refused chemotherapy at that time. He subsequently developed recurrent disease in the left inguinal area and that progressively growing in size. He had systemic chemotherapy with FOLFOX and the later part of 2013 and then radiation therapy in early 2014 at [facility]. He apparently had significant intolerance to chemotherapy which resulted into profound weakness and weight loss and neuropathy. Subsequent CAT scan surveillance on September 2049 showed marked improvement in the left inguinal mass. In April 2015, the patient presented with GI bleeding while he was on Xarelto there was being administered 4 a recent diagnosis of left lower extremity DVT. The anticoagulation was stopped and the patient was given IVC filter. The patient was further found to have a recurrence in his cancer around 20 cm from the anal verge and this was identified on a colonoscopy. A PET scan was done in May 2015 and it showed uptake in 2 distinct retroperitoneal and peritoneal areas where 2 masses were seen. Chemotherapy was recommended but refused. He subsequently had a surgical resection attempt in August 2015. At that time the patient has a large left lower quadrant mass arising from the somewhat excited growing into the left lower abdomen and pelvic sidewall. No other involvement was noted. The left colon was resected however there was residual tumor left and the infection itself was incomplete from the abdominal pelvic wall. Tumor was present in the retroperitoneum which was a direct extension of the main mass. At that time he was referred to oncology and he had one cycle of chemotherapy to which she had very poor tolerance and at that point it was considered that the patient may be a good candidate for hospice. Subsequently, he took further chemotherapy with dose reduction and he received a total of 3 cycles. He was again unable to tolerate treatment because of severe diarrhea and weakness and poor appetite. He was switched to Camptosar alone and he received 2 cycles of systemic chemotherapy last cycle being in June 2016. Note that the patient was in the hospital for rectal bleeding approximately a month ago. He presented emergency department with a hemoglobin of 8.6 and subsequently declined down to 7.5. His platelets were above 100. He was admitted and the bleeding was sees spontaneously and no further intervention was done and he was discharged home. A CAT scan of the abdomen and pelvis that was done at that time showed a large mass in the left lower quadrant that was a representation of recurrent tumor. The mass extension was into the left paraspinal region and displacement of the psoas muscles. There was also involvement of the left ureter with obstruction of the left ureter and left- sided hydronephrosis. The patient also was found to have a moderate free fluid within the right scrotal area/hydrocele and he had also cardiomegaly with extensive atherosclerotic vascular changes. The patient was also found to have a dilated gallbladder. During this current admission, the patient was having on and off active bleeding for the past 2 weeks. He was having loose bowel movements that were bloody and the same time the patient was having bloody urine. Note that the patient was back on Xarelto despite his previous episodes of rectal bleeding. This recommendation was done to him by his direct care professional. As such she went back on taken his Xarelto. Note that he has an IVC filter in place. He presented with a profoundly low hemoglobin of 4.4. Platelet counts was 84,000. INR is at 1.7 with a PT of 16.6 and a PTT of 26.9. The patient received a unit of packed RBC and his is currently receiving the second unit. He is currently in the intensive care unit. He is hemodynamically stable. No hypotension. No chest pain. No dizziness. The Delgado catheter was inserted and the patient was found to have bloody urine output. Creatinine is at 1.5. Magnesium level is at 0.9 and a calcium level is at 7.0. Review of Systems 12 point review of system was done. The patient is a poor baseline performance and functional status secondary to his underlying malignancy. At the same time the patient was having rectal bleeding, was profoundly anemic, appetite was poor , he is losing weight, no chest pain, no shortness of breath, nausea vomiting abdominal abdominal distention, no dysuria fixed urgency and he has hematuria. Past Medical History Past Medical History: Atrial Fibrillation, Cancer, Deep Vein Thrombosis (DVT), Hypertension Additional Past Medical History / Comment(s): Colon cancer details discussed above, lower extremity DVT status post IVC filter placement, previous episodes of rectal bleeding, alcoholism, chronic anemia, cachexia and weight loss, pacemaker insertion, paroxysmal atrial fibrillation, hypertension, chronic renal failure, left kidney hydronephrosis with obstructive uropathy and invasion of the colonic tumor into the urinary system, hyperlipidemia, chronic pain History of Any Multi-Drug Resistant Organisms: None Reported Past Surgical History: Bowel Resection, Hernia Repair, Pacemaker Additional Past Surgical History / Comment(s): colon surgery x2-approx 07/2015, IVC filter-2015 hernia repair july 2016 Past Anesthesia/Blood Transfusion Reactions: No Reported Reaction Type of Cardiac Device: Unknown Device Placement Date:: 2012 Past Psychological History: Anxiety, Depression Smoking Status: Former smoker Past Alcohol Use History: Heavy Past Drug Use History: None Reported - Past Family History Father History Unknown: Yes Family Medical History: No Reported History Mother History Unknown: Yes Family Medical History: No Reported History Medications and Allergies Home Medications Medication Instructions Recorded Confirmed Type ALPRAZolam [Xanax] 1 mg PO BID PRN 04/07/16 08/16/16 History Metoprolol Tartrate [Lopressor] 150 mg PO BID 04/07/16 08/16/16 History Pantoprazole Sodium [Protonix] 40 mg PO DAILY 04/07/16 08/16/16 History Zolpidem [Ambien] 10 mg PO HS 04/07/16 08/16/16 History Fenofibrate,Micronized 134 mg PO QAM 04/08/16 08/16/16 History [Fenofibrate] Lisinopril [Zestril] 2.5 mg PO DAILY 06/27/16 08/16/16 History Prochlorperazine [Compazine] 10 mg PO Q6H PRN 06/27/16 08/16/16 History fentaNYL 75MCG/HR PATCH [Duragesic 1 patch TRANSDERM Q72H 06/27/16 08/16/16 History 75MCG/HR] oxyCODONE-APAP 10-325MG [Percocet 1 tab PO Q4H PRN 06/27/16 08/16/16 History 10-325 mg] Allergies Allergy/AdvReac Type Severity Reaction Status Date / Time No Known Allergies Allergy Verified 08/16/16 07:39 Physical Exam Vitals: Vital Signs Temp Pulse Pulse Resp BP BP Pulse Ox 08/16/16 12:30 101 F H 68 16 96/57 08/16/16 11:03 99.8 F H 73 18 109/61 08/16/16 10:33 99.3 F 77 131/69 100 08/16/16 10:23 99.7 F H 76 18 110/60 08/16/16 10:20 99.4 F 78 20 108/59 08/16/16 09:52 101.7 F H 84 17 109/63 100 08/16/16 09:22 101.9 F H 83 27 H 105/66 93 L 08/16/16 09:12 99.8 F H 86 20 107/71 96 08/16/16 07:20 77 14 114/57 100 08/16/16 07:10 79 14 114/57 99 08/16/16 07:00 79 11 L 95/53 98 08/16/16 06:50 78 12 95/53 100 08/16/16 06:40 76 19 95/53 99 08/16/16 06:30 68 14 95/53 100 08/16/16 06:20 77 16 95/53 100 08/16/16 06:10 78 13 95/53 100 08/16/16 06:00 77 14 95/60 100 08/16/16 05:50 77 17 95/60 100 08/16/16 05:40 89 14 95/60 100 08/16/16 05:30 80 13 95/60 99 08/16/16 05:20 82 18 95/60 99 08/16/16 05:10 69 14 95/60 98 08/16/16 05:05 97.7 F 77 12 95/60 100 08/16/16 05:00 89 77 17 95/60 100 08/16/16 04:50 73 22 81/44 100 Intake and Output 08/15/16 08/16/16 08/16/16 22:59 06:59 14:59 Intake Total 40 640 Output Total 175 0 Balance -135 640 Intake: IV 40 20 0.9 40 20 Blood Product 620 Rc As-1 Unit 310 [id number] Rc As-1 Unit 310 [id number] Output: Urine 175 0 Other: Voiding Method Indwelling Catheter Weight 64.2 kg 64.2 kg Patient Weight 08/17/16 06:59 Weight 64.2 kg Thank you cachectic male patient, nonacute distress. He looks pale.Head exam was generally normal. There was no scleral icterus or corneal arcus. Mucous membranes were moist.Neck was supple and without jugular venous distension, thyromegaly, or carotid bruits. Carotids were easily palpable bilaterally. There was no adenopathy. Mucous membranes are dry and the patient is conjunctival pallor.Lungs were clear to auscultation and percussion, and with normal diaphragmatic excursion. No wheezes or rales were noted. The patient has a Mediport on the right chest and the pacemaker on the left chest.Cardiac exam revealed the PMI to be normally situated and sized. The rhythm was regular and no extrasystoles were noted during several minutes of auscultation. The first and second heart sounds were normal and physiologic splitting of the second heart sound was noted. There were no murmurs, rubs, clicks, or gallops. Abdomen is showing scars of previous abdominal surgery over that the abdominal wall. No direct tenderness. No rebound tenderness. No guarding. Extremities are showing. No edema. No cyanosis or clubbing at this point. Results - Laboratory Findings CBC and BMP: 08/16/16 05:31 08/16/16 05:31 PT/INR, D-dimer PT 16.6 sec (9.0-12.0) H 08/16/16 05:31 INR 1.7 (<1.1) 08/16/16 05:31 Abnormal lab findings: Abnormal Labs 08/16/16 08/16/16 08/16/16 04:46 05:31 05:31 RBC 1.45 L Hgb 4.4 L* D Hct 13.5 L* Plt Count 84 L PT 16.6 H Sodium Potassium Carbon Dioxide BUN Creatinine Glucose POC Glucose (mg/dL) 132 H Calcium Magnesium ALT Total Protein Albumin Urine RBC Urine WBC Urine WBC Clumps Crossmatch 08/16/16 08/16/16 08/16/16 05:31 06:36 06:49 RBC Hgb Hct Plt Count PT Sodium 136 L Potassium 2.6 L* Carbon Dioxide 19 L BUN 32 H Creatinine 1.58 H Glucose 105 H POC Glucose (mg/dL) Calcium 7.0 L Magnesium 0.9 L* ALT 18 L Total Protein 4.1 L Albumin 1.9 L Urine RBC >182 H Urine WBC >182 H Urine WBC Clumps Few H Crossmatch See Detail Assessment and Plan Plan: Assessment 1 profound anemia secondary to ongoing GI bleed. Incentive the patient had blood loss from hematuria and he presented with a hemoglobin of 4.5. Furthermore, the patient has been taking Xarelto as an anticoagulant which contributed and facilitated that his bleeding. The patient is currently being transfused with packed RBC. Hemodynamically stable. 2 recurrent colorectal cancer with a large left lower quadrant mass extending to the psoas muscles and posteriorly to the paraspinal area and invading into the left urinary system causing mass effect on the ureter and obstructive uropathy and hydronephrosis. 3 hematuria secondary to above 4 chronic renal failure secondary to above 5 obstructive uropathy secondary to above 6 recurrent bouts of GI bleed secondary to above 7 DVT with IVC filter placement 8 pacemaker insertion 9 hyperlipidemia 10 hypertension 11 cachexia with ongoing weight loss 12 paroxysmal atrial fibrillation 13 massive electrode imbalance with hypomagnesemia and hypokalemia. Plan Continue IV fluids. Replace electrolytes. Transfuse a total of 2 units of packed RBC and repeat hemoglobin. Oncology consultation regarding the colorectal cancer. Performance and functional status is poor and he in my opinion he should be considered for hospice care. Otherwise, we'll stop the Xarelto for now. Monitor for bleeding. GI evaluation. Oncology evaluation. Keep the patient ICU. Prognosis of this report secondary to above-mentioned comorbidities. Status post is to be addressed.
[2016-08-16 14:33] LABS: CH 29.5; HCT 23.8 % (39.0-53.0); HDW 3.33; Hypochromasia Slight; MCHC 33.4 g/dL (31.0-37.0); Mean Platelet Volume 8.7; RBC 2.56 m/uL (4.30-5.90); RDW 14.7 % (11.5-15.5)
[2016-08-16 14:36] LABS: HGB 7.9 gm/dL (13.0-17.5)
[2016-08-16 14:38] LABS: Magnesium 1.8 mg/dL (1.6-2.3); Potassium 3.2 mmol/L (3.5-5.1)
[2016-08-16] MEDS: POTASSIUM CHLORIDE 10 MEQ in WATER FOR INJECTION 1 100ML.BAG IVPB SCH ×2 (15:40→16:39)
[2016-08-16] MEDS ORDERED: ACETAMINOPHEN IV (For NPO) 1,000 MG in EMPTY BAG 1 BAG IVPB PRN (16:03)
--- NOTE | 2016-08-16 16:28 | P.HPIM ---
History of Present Illness H&P Date: 08/16/16 This is a 66-year-old gentleman that comes in the hospital with complains of dizziness. Patient has a history of colon cancer staged at T3 N1 and with positive lymph nodes. Patient underwent chemotherapy has had some signs of recent recurrence with some spread. Patient does have a history of DVT and the proximal atrial fibrillation. 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 Patient states that he's feeling well at this time Denies having any headaches, blurry vision, nausea, vomiting. Patient's last bowel movement apparently was noted to show bright red blood. pt underwent a computed tomography scan of the abdomen and pelvis which showed a large mass in the left lower quadrant which is a recurrence that is new there is some extension into the left paraspinal region into the psoas muscle and into the left ureter. This was in June 2016 which was On his last cycle of chemotherapy. Patient was noted to have significant symptomatic anemia patient was given a total of 3 units of PRBC. Patient was noted to have significant hematochezia and blood in his urine. Currently denies having any additional complaints. Off note patient does have IVC filter as he was noted to have a left lower extremity DVT and has had recurrent episodes of bleeding. Review of Systems All systems: negative (Noted in HPI) Past Medical History Past Medical History: Atrial Fibrillation, Cancer, Deep Vein Thrombosis (DVT), Hypertension Additional Past Medical History / Comment(s): Colon cancer details discussed above, lower extremity DVT status post IVC filter placement, previous episodes of rectal bleeding, alcoholism, chronic anemia, cachexia and weight loss, pacemaker insertion, paroxysmal atrial fibrillation, hypertension, chronic renal failure, left kidney hydronephrosis with obstructive uropathy and invasion of the colonic tumor into the urinary system, hyperlipidemia, chronic pain History of Any Multi-Drug Resistant Organisms: None Reported Past Surgical History: Bowel Resection, Hernia Repair, Pacemaker Additional Past Surgical History / Comment(s): colon surgery x2-approx 07/2015, IVC filter-2015 hernia repair july 2016 Past Anesthesia/Blood Transfusion Reactions: No Reported Reaction Type of Cardiac Device: Unknown Device Placement Date:: 2012 Past Psychological History: Anxiety, Depression Smoking Status: Former smoker Past Alcohol Use History: Heavy Past Drug Use History: None Reported - Past Family History Father History Unknown: Yes Family Medical History: No Reported History Mother History Unknown: Yes Family Medical History: No Reported History Medications and Allergies Home Medications Medication Instructions Recorded Confirmed Type ALPRAZolam [Xanax] 1 mg PO BID PRN 04/07/16 08/16/16 History Metoprolol Tartrate [Lopressor] 150 mg PO BID 04/07/16 08/16/16 History Pantoprazole Sodium [Protonix] 40 mg PO DAILY 04/07/16 08/16/16 History Zolpidem [Ambien] 10 mg PO HS 04/07/16 08/16/16 History Fenofibrate,Micronized 134 mg PO QAM 04/08/16 08/16/16 History [Fenofibrate] Lisinopril [Zestril] 2.5 mg PO DAILY 06/27/16 08/16/16 History Prochlorperazine [Compazine] 10 mg PO Q6H PRN 06/27/16 08/16/16 History fentaNYL 75MCG/HR PATCH [Duragesic 1 patch TRANSDERM Q72H 06/27/16 08/16/16 History 75MCG/HR] oxyCODONE-APAP 10-325MG [Percocet 1 tab PO Q4H PRN 06/27/16 08/16/16 History 10-325 mg] Allergies Allergy/AdvReac Type Severity Reaction Status Date / Time No Known Allergies Allergy Verified 08/16/16 07:39 Physical Exam Vitals: Vital Signs Temp Pulse Pulse Resp BP BP Pulse Ox 08/16/16 16:00 101 F H 83 34 H 158/73 100 08/16/16 15:00 93 20 110/84 100 08/16/16 14:00 70 16 121/71 100 08/16/16 13:40 69 14 119/50 100 08/16/16 13:30 70 14 119/50 100 08/16/16 13:20 72 15 113/64 100 08/16/16 13:10 96 16 109/61 100 08/16/16 13:00 69 14 109/61 100 08/16/16 12:50 71 16 102/61 99 08/16/16 12:40 69 15 96/57 100 08/16/16 12:30 101 F H 69 16 96/57 100 08/16/16 12:20 69 15 122/63 100 08/16/16 12:10 99.8 F H 80 20 96/56 100 08/16/16 12:00 81 14 96/56 100 08/16/16 11:50 74 16 100/55 100 08/16/16 11:40 73 19 99/55 100 08/16/16 11:30 69 16 99/55 100 08/16/16 11:20 78 16 104/59 100 08/16/16 11:10 72 20 131/69 100 08/16/16 11:03 99.8 F H 73 18 109/61 08/16/16 11:00 75 23 131/69 100 08/16/16 10:50 74 19 108/60 100 08/16/16 10:40 75 15 108/59 100 08/16/16 10:33 99.3 F 77 131/69 100 08/16/16 10:30 87 16 108/59 100 08/16/16 10:23 99.7 F H 76 18 110/60 08/16/16 10:20 99.4 F 68 16 109/63 100 08/16/16 10:10 89 10 L 105/66 08/16/16 10:00 82 15 105/66 94 L 08/16/16 09:52 101.7 F H 84 17 109/63 100 08/16/16 09:50 91 15 107/71 08/16/16 09:40 81 24 115/68 08/16/16 09:30 88 26 H 115/68 08/16/16 09:22 101.9 F H 83 27 H 105/66 93 L 08/16/16 09:20 82 18 115/68 100 08/16/16 09:12 99.8 F H 86 20 107/71 96 08/16/16 09:10 84 23 115/68 77 L 08/16/16 09:00 85 26 H 104/61 92 L 08/16/16 08:50 84 20 104/61 75 L 08/16/16 08:40 90 21 104/61 62 L 08/16/16 08:30 89 19 104/61 82 L 08/16/16 08:20 85 19 104/61 78 L 08/16/16 08:10 78 19 104/61 76 L 08/16/16 08:00 99.1 F 74 19 114/57 97 08/16/16 07:50 79 15 114/57 99 08/16/16 07:40 80 14 114/57 99 08/16/16 07:30 82 20 114/57 99 08/16/16 07:20 77 14 114/57 100 08/16/16 07:10 79 14 114/57 99 08/16/16 07:00 79 11 L 95/53 98 08/16/16 06:50 78 12 95/53 100 08/16/16 06:40 76 19 95/53 99 08/16/16 06:30 68 14 95/53 100 08/16/16 06:20 77 16 95/53 100 08/16/16 06:10 78 13 95/53 100 08/16/16 06:00 77 14 95/60 100 08/16/16 05:50 77 17 95/60 100 08/16/16 05:40 89 14 95/60 100 08/16/16 05:30 80 13 95/60 99 08/16/16 05:20 82 18 95/60 99 08/16/16 05:10 69 14 95/60 98 08/16/16 05:05 97.7 F 77 12 95/60 100 08/16/16 05:00 89 77 17 95/60 100 08/16/16 04:50 73 22 81/44 100 Intake and Output 08/16/16 08/16/16 08/16/16 06:59 14:59 22:59 Intake Total 40 1420 40 Output Total 175 505 60 Balance -135 915 -20 Intake: IV 40 180 40 0.9 40 180 40 Blood Product 1240 As-1 Unit 310 [id number] As-1 Unit 310 [id number] Output: Urine 175 505 60 Other: Voiding Method Indwelling Catheter Weight 64.2 kg 64.2 kg Patient Weight 08/17/16 06:59 Weight 64.2 kg Physical exam Gen. appearance oriented 3 in no distress Neck is supple no JVD Lungs good air entry clear to auscultation no rhonchi or wheezing Heart irregularly irregular pain systolic murmurs appreciated Abdomen is soft nontender no organomegaly bowel sounds are intact Neurologically cranial nerves II-12 grossly intact no focal motor or sensory deficits noted Skin no abnormalities appreciated Results CBC & Chem 7: 08/16/16 14:02 08/16/16 14:02 Labs: Abnormal Lab Results - Last 24 Hours (Table) 08/16/16 08/16/16 08/16/16 Range/Units 04:46 05:31 05:31 RBC 1.45 L (4.30-5.90) m/uL Hgb 4.4 L* D (13.0-17.5) gm/dL Hct 13.5 L* (39.0-53.0) % Plt Count 84 L (150-450) k/uL PT 16.6 H (9.0-12.0) sec Sodium (137-145) mmol/L Potassium (3.5-5.1) mmol/L Carbon Dioxide (22-30) mmol/L BUN (9-20) mg/dL Creatinine (0.66-1.25) mg/dL Glucose (74-99) mg/dL POC Glucose (mg/dL) 132 H (75-99) mg/dL Calcium (8.4-10.2) mg/dL Magnesium (1.6-2.3) mg/dL ALT (21-72) U/L Total Protein (6.3-8.2) g/dL Albumin (3.5-5.0) g/dL Urine RBC (0-5) /hpf Urine WBC (0-5) /hpf Urine WBC Clumps (None) /hpf Crossmatch 08/16/16 08/16/16 08/16/16 Range/Units 05:31 06:36 06:49 RBC (4.30-5.90) m/uL Hgb (13.0-17.5) gm/dL Hct (39.0-53.0) % Plt Count (150-450) k/uL PT (9.0-12.0) sec Sodium 136 L (137-145) mmol/L Potassium 2.6 L* (3.5-5.1) mmol/L Carbon Dioxide 19 L (22-30) mmol/L BUN 32 H (9-20) mg/dL Creatinine 1.58 H (0.66-1.25) mg/dL Glucose 105 H (74-99) mg/dL POC Glucose (mg/dL) (75-99) mg/dL Calcium 7.0 L (8.4-10.2) mg/dL Magnesium 0.9 L* (1.6-2.3) mg/dL ALT 18 L (21-72) U/L Total Protein 4.1 L (6.3-8.2) g/dL Albumin 1.9 L (3.5-5.0) g/dL Urine RBC >182 H (0-5) /hpf Urine WBC >182 H (0-5) /hpf Urine WBC Clumps Few H (None) /hpf Crossmatch See Detail 08/16/16 08/16/16 Range/Units 14:02 14:02 RBC 2.56 L (4.30-5.90) m/uL Hgb 7.9 L D (13.0-17.5) gm/dL Hct 23.8 L (39.0-53.0) % Plt Count 90 L (150-450) k/uL PT (9.0-12.0) sec Sodium (137-145) mmol/L Potassium 3.2 L (3.5-5.1) mmol/L Carbon Dioxide (22-30) mmol/L BUN (9-20) mg/dL Creatinine (0.66-1.25) mg/dL Glucose (74-99) mg/dL POC Glucose (mg/dL) (75-99) mg/dL Calcium (8.4-10.2) mg/dL Magnesium (1.6-2.3) mg/dL ALT (21-72) U/L Total Protein (6.3-8.2) g/dL Albumin (3.5-5.0) g/dL Urine RBC (0-5) /hpf Urine WBC (0-5) /hpf Urine WBC Clumps (None) /hpf Crossmatch Microbiology - Last 24 Hours (Table) 08/16/16 06:49 Urine Culture - Preliminary Urine,Catheterized Thrombosis Risk Factor Assmnt - Choose All That Apply Any of the Below Risk Factors Present?: Yes Each Factor Represents 1 point: Abnormal pulmonary function (COPD), Heart failure (<1month), Medical pt on bed rest, Swollen legs (current) Other Risk Factors: Yes Each Risk Factor Represents 2 Points: Age 61-74 years Each Risk Factor Represents 3 Points: History of DVT/PE Thrombosis Risk Factor Assessment Total Risk Factor Score: 9 Thrombosis Risk Factor Assessment Level: High Risk Assessment and Plan Plan: #1 acute symptomatic anemia secondary to a a GI and source of bleeding. Patient is on xarelto which could account for a GI source of bleeding however after the Delgado/a genitourinary source of bleeding is unlikely from a anticoagulant this is likely from the cancer spread itself. #2 recurrent colorectal cancer appears to be stage IV currently #3 hematorrhea likely from #2 #4 left-sided hydronephrosis secondary to obstructive uropathy secondary to #2 #5 multiple episodes of venous thromboembolism #6 paroxysmal atrial fibrillation #7 severe protein calorie malnutrition #8 hypertension. #9 dyslipidemia #10 hypomagnesemia #11 hypokalemia Plan We'll have urology evaluate the patient as well as hold off on anticoagulation at this time the the risks of anticoagulation are significantly higher than benefits at this time. Patient has poor prognosis with advanced cancer. Continue Delgado catheter Hemoglobin is stable transfuse if hemoglobin is less than 7 check hemoglobin serial every 6 hours Have GI on consultation as well Critical care recommendations are appreciated Again prognosis of this patient is poor will have oncology discuss further goals of care with the patient.
--- NOTE | 2016-08-16 18:39 | P.CONS ---
History of Present Illness - Reason for Consult Consult date: 08/16/16 metastatic/recurrent rectal cancer Requesting physician: Tae Valadez - Chief Complaint hematuria and hematochezia - History of Present Illness Pt is a very pleasant 65 year old male pt of Dr. Krueger with an extensive oncology history. Initial diagnosis was rectal sigmoid cancer in 09/01 , had surgical resection, pathological staging [id number] with 2 positive nodes, pt refused chemo. He had recurrence in the left inguinal area, biopsy proven. He was treated with chemotherapy- FOLFOX-in late 2013 and had radiation in early 2014 in [place]. He did not tolerate treatment well. He was on surveilence with CT 09/21/14 showing marked improvement in the left inguinal mass. He presented in 05/08 with GI bleeding while on Xarelto for a recently diagnosed LLE DVT. He was found to have a malignancy recurrence 20 cm from the anal verge on colonoscopy. PET scan 06/08 showed uptake in 2 distinct retroperitoneal and peritoneal masses. Chemotherapy recommended but, he refused. He was evaluated at [facility] and it was felt that given limited sites of disease surgical resection was possible, this was attempted on 09/07/15. This revealed a very large mass in LLQ arising from the anastomotic site growing into the left lower abdomen and pelvic side wall, no other areas of involvement noted. Colon was able to be resected but the tumor could only be incompletely resected from the abdominal/pelvic wall, also tumor was present in the retroperitoneum which appeared to be direct extension of the main mass. Pathology was positive for adenocarcinoma grade 2. 0/21 lymph nodes were involved. At this time the patient was referred to Dr. Krueger for another opinion. He did want active treatment and options were discussed. He was referred back to Dr. Brooks in [place], who had treated him previously. He had a PET and had 1 cycle of infusional chemo in 02/05. His tolerance was very poor, and hospice was recommended. The pt slowly recovered over time and decided to come back to Dr. Krueger to again discuss other treatment options, he wanted active treatment so FOLFIRI was resumed with dose reduction. He had 3 cycles but was unable to tolerate due to severe diarrhea, weakness and poor appetite. He was switched to Camptosar alone in May and is s/p 2 cycle. Pt seen in ICU today, he was getting weaker at home and was having severe hematuria and hematochezia, his appetite is poor, he is very thristy, weak and tired, SOB with any activity. Review of Systems All systems: negative Constitutional: Reports as per HPI Past Medical History Past Medical History: Atrial Fibrillation, Cancer, Deep Vein Thrombosis (DVT), Hypertension Additional Past Medical History / Comment(s): Colon cancer details discussed above, lower extremity DVT status post IVC filter placement, previous episodes of rectal bleeding, alcoholism, chronic anemia, cachexia and weight loss, pacemaker insertion, paroxysmal atrial fibrillation, hypertension, chronic renal failure, left kidney hydronephrosis with obstructive uropathy and invasion of the colonic tumor into the urinary system, hyperlipidemia, chronic pain History of Any Multi-Drug Resistant Organisms: None Reported Past Surgical History: Bowel Resection, Hernia Repair, Pacemaker Additional Past Surgical History / Comment(s): colon surgery x2-approx 07/2015, IVC filter-2015 hernia repair july 2016 Past Anesthesia/Blood Transfusion Reactions: No Reported Reaction Type of Cardiac Device: Unknown Device Placement Date:: 2012 Past Psychological History: Anxiety, Depression Smoking Status: Former smoker Past Alcohol Use History: Heavy Past Drug Use History: None Reported - Past Family History Father History Unknown: Yes Family Medical History: No Reported History Mother History Unknown: Yes Family Medical History: No Reported History Medications and Allergies Home Medications Medication Instructions Recorded Confirmed Type ALPRAZolam [Xanax] 1 mg PO BID PRN 04/07/16 08/16/16 History Metoprolol Tartrate [Lopressor] 150 mg PO BID 04/07/16 08/16/16 History Pantoprazole Sodium [Protonix] 40 mg PO DAILY 04/07/16 08/16/16 History Zolpidem [Ambien] 10 mg PO HS 04/07/16 08/16/16 History Fenofibrate,Micronized 134 mg PO QAM 04/08/16 08/16/16 History [Fenofibrate] Lisinopril [Zestril] 2.5 mg PO DAILY 06/27/16 08/16/16 History Prochlorperazine [Compazine] 10 mg PO Q6H PRN 06/27/16 08/16/16 History fentaNYL 75MCG/HR PATCH [Duragesic 1 patch TRANSDERM Q72H 06/27/16 08/16/16 History 75MCG/HR] oxyCODONE-APAP 10-325MG [Percocet 1 tab PO Q4H PRN 06/27/16 08/16/16 History 10-325 mg] Allergies Allergy/AdvReac Type Severity Reaction Status Date / Time No Known Allergies Allergy Verified 08/16/16 07:39 Physical Exam Vitals: Vital Signs Temp Pulse Pulse Resp BP BP Pulse Ox 08/16/16 16:00 101 F H 83 77 34 H 158/73 100 08/16/16 15:00 93 20 110/84 100 08/16/16 14:00 70 16 121/71 100 08/16/16 13:40 69 14 119/50 100 08/16/16 13:30 70 14 119/50 100 08/16/16 13:20 72 15 113/64 100 08/16/16 13:10 96 16 109/61 100 08/16/16 13:00 69 14 109/61 100 08/16/16 12:50 71 16 102/61 99 08/16/16 12:40 69 15 96/57 100 08/16/16 12:30 101 F H 69 16 96/57 100 08/16/16 12:20 69 15 122/63 100 08/16/16 12:10 99.8 F H 80 20 96/56 100 08/16/16 12:00 81 77 16 96/56 100 08/16/16 11:50 74 16 100/55 100 08/16/16 11:40 73 19 99/55 100 08/16/16 11:30 69 16 99/55 100 08/16/16 11:20 78 16 104/59 100 08/16/16 11:10 72 20 131/69 100 08/16/16 11:03 99.8 F H 73 18 109/61 08/16/16 11:00 75 23 131/69 100 08/16/16 10:50 74 19 108/60 100 08/16/16 10:40 75 15 108/59 100 08/16/16 10:33 99.3 F 77 131/69 100 08/16/16 10:30 87 16 108/59 100 08/16/16 10:23 99.7 F H 76 18 110/60 08/16/16 10:20 99.4 F 68 16 109/63 100 08/16/16 10:10 89 10 L 105/66 08/16/16 10:00 82 15 105/66 94 L 08/16/16 09:52 101.7 F H 84 17 109/63 100 08/16/16 09:50 91 15 107/71 08/16/16 09:40 81 24 115/68 08/16/16 09:30 88 26 H 115/68 08/16/16 09:22 101.9 F H 83 27 H 105/66 93 L 08/16/16 09:20 82 18 115/68 100 08/16/16 09:12 99.8 F H 86 20 107/71 96 08/16/16 09:10 84 23 115/68 77 L 08/16/16 09:00 85 26 H 104/61 92 L 08/16/16 08:50 84 20 104/61 75 L 08/16/16 08:40 90 21 104/61 62 L 08/16/16 08:30 89 19 104/61 82 L 08/16/16 08:20 85 19 104/61 78 L 08/16/16 08:10 78 19 104/61 76 L 08/16/16 08:00 99.1 F 74 77 34 H 114/57 97 08/16/16 07:50 79 15 114/57 99 08/16/16 07:40 80 14 114/57 99 08/16/16 07:30 82 20 114/57 99 08/16/16 07:20 77 14 114/57 100 08/16/16 07:10 79 14 114/57 99 08/16/16 07:00 79 11 L 95/53 98 08/16/16 06:50 78 12 95/53 100 08/16/16 06:40 76 19 95/53 99 08/16/16 06:30 68 14 95/53 100 08/16/16 06:20 77 16 95/53 100 08/16/16 06:10 78 13 95/53 100 08/16/16 06:00 77 14 95/60 100 08/16/16 05:50 77 17 95/60 100 08/16/16 05:40 89 14 95/60 100 08/16/16 05:30 80 13 95/60 99 08/16/16 05:20 82 18 95/60 99 08/16/16 05:10 69 14 95/60 98 08/16/16 05:05 97.7 F 77 12 95/60 100 08/16/16 05:00 89 77 17 95/60 100 08/16/16 04:50 73 22 81/44 100 Intake and Output 08/16/16 08/16/16 08/16/16 06:59 14:59 22:59 Intake Total 40 1420 40 Output Total 175 505 60 Balance -135 915 -20 Intake: IV 40 180 40 0.9 40 180 40 Blood Product 1240 Rc As-1 Unit 310 [id number] Rc As-1 Unit 310 [id number] Output: Urine 175 505 60 Other: Voiding Method Indwelling Catheter Indwelling Catheter Indwelling Catheter Weight 64.2 kg 64.2 kg Patient Weight 08/17/16 06:59 Weight 64.2 kg - Constitutional General appearance: cooperative, mild distress, thin - EENT tongue cyanotic, waxy appearance to skin, mucus membranes dry ENT: hard of hearing - Neck Neck: no lymphadenopathy - Respiratory Respiratory: bilateral: diminished (weak respiratory effort) - Cardiovascular Heart sounds: normal: S1, S2 leg Peripheral Edema: right: Trace, left: 1+ - Gastrointestinal General gastrointestinal: scaphoid - Genitourinary dark red urine in barrios - Integumentary Integumentary: cyanotic, pale - Neurologic Neurologic: CNII-XII intact - Musculoskeletal Musculoskeletal: generalized weakness - Psychiatric Psychiatric: A&O x's 3, appropriate affect, intact judgment & insight Results CBC & Chem 7: 08/16/16 14:02 08/16/16 14:02 Labs: Abnormal Lab Results - Last 24 Hours (Table) 08/16/16 08/16/16 08/16/16 Range/Units 04:46 05:31 05:31 RBC 1.45 L (4.30-5.90) m/uL Hgb 4.4 L* D (13.0-17.5) gm/dL Hct 13.5 L* (39.0-53.0) % Plt Count 84 L (150-450) k/uL PT 16.6 H (9.0-12.0) sec Sodium (137-145) mmol/L Potassium (3.5-5.1) mmol/L Carbon Dioxide (22-30) mmol/L BUN (9-20) mg/dL Creatinine (0.66-1.25) mg/dL Glucose (74-99) mg/dL POC Glucose (mg/dL) 132 H (75-99) mg/dL Calcium (8.4-10.2) mg/dL Magnesium (1.6-2.3) mg/dL ALT (21-72) U/L Total Protein (6.3-8.2) g/dL Albumin (3.5-5.0) g/dL Urine RBC (0-5) /hpf Urine WBC (0-5) /hpf Urine WBC Clumps (None) /hpf Crossmatch 08/16/16 08/16/16 08/16/16 Range/Units 05:31 06:36 06:49 RBC (4.30-5.90) m/uL Hgb (13.0-17.5) gm/dL Hct (39.0-53.0) % Plt Count (150-450) k/uL PT (9.0-12.0) sec Sodium 136 L (137-145) mmol/L Potassium 2.6 L* (3.5-5.1) mmol/L Carbon Dioxide 19 L (22-30) mmol/L BUN 32 H (9-20) mg/dL Creatinine 1.58 H (0.66-1.25) mg/dL Glucose 105 H (74-99) mg/dL POC Glucose (mg/dL) (75-99) mg/dL Calcium 7.0 L (8.4-10.2) mg/dL Magnesium 0.9 L* (1.6-2.3) mg/dL ALT 18 L (21-72) U/L Total Protein 4.1 L (6.3-8.2) g/dL Albumin 1.9 L (3.5-5.0) g/dL Urine RBC >182 H (0-5) /hpf Urine WBC >182 H (0-5) /hpf Urine WBC Clumps Few H (None) /hpf Crossmatch See Detail 08/16/16 08/16/16 Range/Units 14:02 14:02 RBC 2.56 L (4.30-5.90) m/uL Hgb 7.9 L D (13.0-17.5) gm/dL Hct 23.8 L (39.0-53.0) % Plt Count 90 L (150-450) k/uL PT (9.0-12.0) sec Sodium (137-145) mmol/L Potassium 3.2 L (3.5-5.1) mmol/L Carbon Dioxide (22-30) mmol/L BUN (9-20) mg/dL Creatinine (0.66-1.25) mg/dL Glucose (74-99) mg/dL POC Glucose (mg/dL) (75-99) mg/dL Calcium (8.4-10.2) mg/dL Magnesium (1.6-2.3) mg/dL ALT (21-72) U/L Total Protein (6.3-8.2) g/dL Albumin (3.5-5.0) g/dL Urine RBC (0-5) /hpf Urine WBC (0-5) /hpf Urine WBC Clumps (None) /hpf Crossmatch Microbiology - Last 24 Hours (Table) 08/16/16 06:49 Urine Culture - Preliminary Urine,Catheterized Chest x-ray: report reviewed Abdominal x-ray: report reviewed Assessment and Plan (1) Anemia Narrative/Plan: Pt is being transfused for Hgb 4.4. Cont to transfuse to keep Hgb around 6. Status: Acute (2) Colon cancer Narrative/Plan: Pt has not been seen in the office since 07/08, no treatment since May. Will discuss case with Dr. Krueger and will plan for family meeting in the next 48 hours to discuss goals and plan of care. Status: Chronic (3) GI bleed Narrative/Plan: Pt has had episodes of bleeding previously secondary to his malignancy in the pelvis. GI consulted, we look for their recommendations Status: Acute
[2016-08-16 20:08] LABS: Magnesium 2.3 mg/dL (1.6-2.3); Potassium 3.3 mmol/L (3.5-5.1)
[2016-08-16 20:11] LABS: CH 30.4; CHCM 33.8; HDW 3.48; MCH 31.1 pg (25.0-35.0); MCHC 34.4 g/dL (31.0-37.0); MCV 90.6 fL (80.0-100.0); Poikilocytosis Slight; RBC 2.11 m/uL (4.30-5.90); RDW 15.3 % (11.5-15.5); WBC 7.3 k/uL (3.8-10.6)
[2016-08-16 20:14] LABS: HGB 6.6 gm/dL (13.0-17.5)
[2016-08-16 20:15] LABS: HCT 19.1 % (39.0-53.0)
[2016-08-17] MEDS: oxyCODONE-APAP 10-325MG 1 EACH TAB PO PRN ×2 (04:49→22:48)
[2016-08-17 05:18] LABS: Anisocytosis Slight; CH 29.6; CHCM 33.5; HCT 29.2 % (39.0-53.0); HDW 3.67; Immature Gran Flag Slight; MCH 29.9 pg (25.0-35.0); MCHC 33.5 g/dL (31.0-37.0); Mean Platelet Volume 8.6; Poikilocytosis Slight; RBC 3.28 m/uL (4.30-5.90); WBC 11.4 k/uL (3.8-10.6); WBC (Perox) 11.36
[2016-08-17 05:24] LABS: Anion Gap 8 mmol/L; Blood Urea Nitrogen 29 mg/dL (9-20); Calcium 7.7 mg/dL (8.4-10.2); Carbon Dioxide 20 mmol/L (22-30); Chloride 106 mmol/L (98-107); Glucose 91 mg/dL (74-99); Magnesium 2.2 mg/dL (1.6-2.3); Non-African American GFR(MDRD) 56 (>60 ml/min/1.73 sqM); Phosphorous 2.9 mg/dL (2.5-4.5); Potassium 3.4 mmol/L (3.5-5.1); Sodium 134 mmol/L (137-145)
[2016-08-17] MEDS ORDERED: Potassium Replacement Protocol 1 EACH MISC MISCELLANE PRN (05:27)
[2016-08-17 05:36] LABS: HGB 9.8 gm/dL (13.0-17.5)
[2016-08-17 06:20] LABS: Add Differential Manual Differential
[2016-08-17 06:21] LABS: Manual Review Performed; Nucleated Red Blood Cells 0 /100 WBC (0-0); Total Cells Counted 100
[2016-08-17] MEDS: POTASSIUM CHLORIDE 10 MEQ, LIDOCAINE 2% INJ 10 MG in SODIUM CHLORIDE 0.9% 100 ML IV SCH ×2 (06:21→08:16)
[2016-08-17] MEDS ORDERED: SODIUM CHLORIDE 0.9% 1,000 ML IV ONE ×2 (06:40→13:30)
--- NOTE | 2016-08-17 08:30 | CONS ---
DATE OF CONSULTATION: 08/17/2016 REASON FOR CONSULTATION: Gross hematuria. The patient is a 66-year-old male transferred from [facility] for evaluation of severe anemia associated with gross hematuria and passage of blood through his rectum. The patient had been noted to have a hemoglobin of 4.4 at that time. He has received 4 units of packed red blood cells and his hemoglobin today is 9.8. I was asked to see the patient due to the hematuria. Patient has a complicated history which dates back to 2011 when he was discovered to have adenocarcinoma of the sigmoid colon. He underwent surgical resection and was found to have a stage T3 N1B M0 tumor with 2 positive nodes. He refused adjuvant therapy at that time. He had a left inguinal recurrence in 2013, which was treated with a combination of chemotherapy and radiation therapy. He was discovered to have recurrent tumor in the colon in 04/2014 and underwent partial colectomy in 2015. At that time he had an unresectable LLQ mass. He eventually received additional chemotherapy beginning earlier this year through Dr. Krueger. He apparently did not tolerate the chemotherapy well due to diarrhea. He was admitted in June 2016 due to blood in his stool. A CT scan on 06/27/2016 showed left hydroureteronephrosis secondary to a 6 x 9 cm left lower quadrant mass which was the area of his tumor occurrence. The patient was felt to have the rectal bleeding partly on the basis of his diarrhea. He apparently also had been on Xarelto. He was discharged and went back Xarelto. He says over the last 3 weeks he has had intermittent passage of blood in his stool and urine. The blood in his urine has become more continuous. It has been associated with occasional patches of clots and slight dysuria. He is also noted some increased urinary frequency, but says he usually only voids every 2 to 3 hours. The catheter was inserted yesterday and has shown grossly bloody urine. The catheter has been irrigated periodically, but apparently has not occluded with clots. Patient's past medical history is significant in regard to the carcinoma of the sigmoid colon. He has apparently a history of a deep venous thrombosis involving the left leg. There is a history of atrial fibrillation previously treated with placement of his pacemaker. He recently underwent a right inguinal hernia repair. Laboratory evaluation on admission included a white blood count of 4000, hemoglobin 4.4, platelet count 84,000, hemoglobin this morning is 9.8. BUN/creatinine today are 29/1.30. Patient's potassium yesterday was 2.6. It has been corrected and is now 3.4. Physical exam reveals a cachectic 66-year-old male who is alert and oriented, afebrile. No scleral icterus. No supraclavicular adenopathy. CHEST: Breathing is unlabored. ABDOMEN: Flat. There is a firm mass present in the left lower quadrant. There is a recent surgical incision in the right lower quadrant which appears to be healing well. A urethral catheter is in place and the urine draining in it is bloody but no clots are present in the tubing. There is soft tissue swelling superior to the right testicle consistent with a hydrocele. Left testicle is unremarkable. Rectal examination was not performed. IMPRESSION: Gross hematuria - the cause of this is most likely the combination of the use of Xarelto and a low platelet count coupled with previous pelvic radiation therapy for the patient's sigmoid tumor. At the time of his CT scan in 07/07, no bladder deformity was noted and it is unlikely that he has direct invasion of the bladder by his recurrent tumor; however, this also remains a remote possibility. RECOMMENDATIONS: Patient's coagulopathy should improved now that he is off Xarelto, although his platelet count still remains somewhat suboptimal. In view of the patient's overall very poor prognosis, I do not feel that cystoscopy is necessary for further evaluation. The patient's catheter should be irrigated periodically and cystoscopy will be considered only if his bleeding becomes intractable. Thank you for allowing me to participate in the care of this gentleman. JOJO
--- NOTE | 2016-08-17 09:52 | P.CONS ---
History of Present Illness - Reason for Consult Consult date: 08/17/16 GI bleed Requesting physician: Miller Cruz - History of Present Illness 66-year-old gentleman with a history of rectosigmoid cancer in 2011 with resection with initial refusal of chemotherapy but then developed recurrence in the left inguinal area biopsy-positive for recurrence. He underwent chemo radiation . In April 2015 he presented with GI bleeding while on Xarelto for recent left lower extremity DVT. He was found have recurrence 20cm from the anal verge via colonoscopy. Surgical resection was attempted in August 2015 revealed a very large mass in the left lower quadrant arising from the [facility] site growing into the left lower abdomen and pelvic sidewall. Left colon was able to be resected but tumor was incompletely resected; biopsy- positive for adenocarcinoma and lymph node involvement. Hospitalized last month with bright red blood per rectum with a hemoglobin as low as 7.5. Bleeding felt to be secondary to his recurrent tumor site in the pelvis. Xarelto was discontinued and bleeding subsided. He presents the hospital with progressive weakness hematuria and hematochezia with poor appetite shortness of breath with activity. He was taking Xarelto prior to admission. Admission hemoglobin 4.4. Platelet 84. He received 4 units of blood. Current hemoglobin 9.8. Platelet 90. INR 1.7. Hematuria has improved as well as bloody bowel movements have decreased. Denies hematemesis. Evaluated by urology gross hematuria most likely combination uses a role toe thrombocytopenia with previous pelvic radiation for sigmoid pelvic tumor. Tumor invasion into bladder cannot be entirely excluded; a remote possibility. Review of Systems Constitutional: Denies fever, chills, sweats, weight gain, or loss. HEENT: Negative for migraines, blurred vision or loss, earaches, drainage, tinnitus, oral mucosal lesions, dysphagia, or odynophagia. Cardiac: Atrial fibrillation. Hypertension. Negative for chest pain, arrhythmias, or palpitation. Respiratory: Negative for shortness of breath, hemoptysis, cough, or sputum production. Gastrointestinal: See HPI for pertinent findings. Genitourinary: Negative for hematuria, urgency, frequency, polyuria, dysuria, or penile discharge. Musculoskeletal: Negative for muscle aches, swelling, arthritis, and arthralgias. Neurologic: Negative for stroke or TIA. Endocrine: Negative for thyroid problems. Hematologic: See HPI. DVT. Skin: Negative for rash or itching. Psychiatric: history for depression and anxiety Past Medical History Past Medical History: Atrial Fibrillation, Cancer, Deep Vein Thrombosis (DVT), Hypertension Additional Past Medical History / Comment(s): Colon cancer details discussed above, lower extremity DVT status post IVC filter placement, previous episodes of rectal bleeding, alcoholism, chronic anemia, cachexia and weight loss, pacemaker insertion, paroxysmal atrial fibrillation, hypertension, chronic renal failure, left kidney hydronephrosis with obstructive uropathy and invasion of the colonic tumor into the urinary system, hyperlipidemia, chronic pain History of Any Multi-Drug Resistant Organisms: None Reported Past Surgical History: Bowel Resection, Hernia Repair, Pacemaker Additional Past Surgical History / Comment(s): colon surgery x2-approx 07/2015, IVC filter-2015 hernia repair july 2016 Past Anesthesia/Blood Transfusion Reactions: No Reported Reaction Type of Cardiac Device: Unknown Device Placement Date:: 2012 Past Psychological History: Anxiety, Depression Smoking Status: Former smoker Past Alcohol Use History: Heavy Past Drug Use History: None Reported - Past Family History Father History Unknown: Yes Family Medical History: No Reported History Mother History Unknown: Yes Family Medical History: No Reported History Medications and Allergies Home Medications Medication Instructions Recorded Confirmed Type ALPRAZolam [Xanax] 1 mg PO BID PRN 04/07/16 08/16/16 History Metoprolol Tartrate [Lopressor] 150 mg PO BID 04/07/16 08/16/16 History Pantoprazole Sodium [Protonix] 40 mg PO DAILY 04/07/16 08/16/16 History Zolpidem [Ambien] 10 mg PO HS 04/07/16 08/16/16 History Fenofibrate,Micronized 134 mg PO QAM 04/08/16 08/16/16 History [Fenofibrate] Lisinopril [Zestril] 2.5 mg PO DAILY 06/27/16 08/16/16 History Prochlorperazine [Compazine] 10 mg PO Q6H PRN 06/27/16 08/16/16 History fentaNYL 75MCG/HR PATCH [Duragesic 1 patch TRANSDERM Q72H 06/27/16 08/16/16 History 75MCG/HR] oxyCODONE-APAP 10-325MG [Percocet 1 tab PO Q4H PRN 03/07/17 04/26/17 History 10-325 mg] Allergies Allergy/AdvReac Type Severity Reaction Status Date / Time No Known Allergies Allergy Verified 08/16/16 07:39 Physical Exam Vitals: Vital Signs Temp Pulse Pulse Resp BP Pulse Ox 08/17/16 09:00 74 16 88/47 08/17/16 08:00 97.8 F 88 17 98/62 96 08/17/16 07:00 77 9 L 75/51 100 08/17/16 06:00 75 6 L 76/54 100 08/17/16 05:00 82 8 L 140/80 100 08/17/16 04:00 98.1 F 75 9 L 81/50 100 08/17/16 03:00 77 11 L 81/62 100 08/17/16 02:01 63 7 L 86/52 100 08/17/16 02:00 80 9 L 103/60 100 08/17/16 01:00 83 9 L 100/49 100 08/17/16 00:31 96.7 F L 76 8 L 97/69 98 08/17/16 00:01 96.9 F L 69 9 L 91/52 100 08/17/16 00:00 96.9 F L 80 6 L 92/58 100 08/16/16 23:51 97.6 F 76 7 L 92/58 100 08/16/16 23:42 97.6 F 74 7 L 92/58 100 08/16/16 23:40 97.6 F 74 8 L 93/57 100 08/16/16 23:00 77 8 L 100/53 99 08/16/16 22:00 72 8 L 95/52 97 08/16/16 21:46 95/52 08/16/16 21:41 98.3 F 69 7 L 97 08/16/16 21:31 97.9 F 72 8 L 95/55 97 08/16/16 21:00 75 12 83/52 95 08/16/16 20:00 98.6 F 105 H 77 11 L 101/61 97 08/16/16 19:00 98.8 F 75 18 85/53 98 08/16/16 18:00 71 11 L 98/56 98 08/16/16 17:00 72 13 158/73 95 08/16/16 16:00 101 F H 83 77 34 H 158/73 100 08/16/16 15:00 93 20 110/84 100 08/16/16 14:00 70 16 121/71 100 08/16/16 13:40 69 14 119/50 100 08/16/16 13:30 70 14 119/50 100 08/16/16 13:20 72 15 113/64 100 08/16/16 13:10 96 16 109/61 100 08/16/16 13:00 69 14 109/61 100 08/16/16 12:50 71 16 102/61 99 08/16/16 12:40 69 15 96/57 100 08/16/16 12:30 101 F H 69 16 96/57 100 08/16/16 12:20 69 15 122/63 100 08/16/16 12:10 99.8 F H 80 20 96/56 100 08/16/16 12:00 81 77 16 96/56 100 08/16/16 11:50 74 16 100/55 100 08/16/16 11:40 73 19 99/55 100 08/16/16 11:30 69 16 99/55 100 08/16/16 11:20 78 16 104/59 100 08/16/16 11:10 72 20 131/69 100 08/16/16 11:03 99.8 F H 73 18 109/61 08/16/16 11:00 75 23 131/69 100 08/16/16 10:50 74 19 108/60 100 08/16/16 10:40 75 15 108/59 100 08/16/16 10:33 99.3 F 77 131/69 100 08/16/16 10:30 87 16 108/59 100 08/16/16 10:23 99.7 F H 76 18 110/60 08/16/16 10:20 99.4 F 68 16 109/63 100 08/16/16 10:10 89 10 L 105/66 08/16/16 10:00 82 15 105/66 94 L 08/16/16 09:52 101.7 F H 84 17 109/63 100 08/16/16 09:50 91 15 107/71 Intake and Output 08/16/16 08/17/16 08/17/16 22:59 06:59 14:59 Intake Total 400 2040 600 Output Total 625 531 80 Balance -225 1509 520 Intake: IV 400 1420 600 0.9 400 800 100 PRBC 620 Sodium Chloride 0.9% 1, 500 000 ml @ 999 mls/hr IV . Q1H1M ONE Rx#:[id number] Blood Product 0 620 Rc As-1 Unit 310 [id number] Rc As-1 Unit 0 310 [id number] Output: Urine 625 531 80 Other: Voiding Method Indwelling Catheter Indwelling Catheter Indwelling Catheter Weight 64 kg 64 kg Patient Weight 08/18/16 06:59 Weight 64 kg General appearance: The patient is alert, oriented, in no acute distress. Appears weak cachectic. HET: Head is normocephalic and atraumatic. Pupils are equal and reactive. Oropharynx is clear without lesions. Neck: Supple without lymphadenopathy. Trachea midline. Heart: S1 S2. Regular rate and rhythm. Lungs: No crackles or wheezes are heard. Abdomen: Soft, nontender, nondistended with bowel sounds. No peritoneal signs. No palpable organomegaly or masses. Extremities: Normal skin color and turgor. No cyanosis, rash, ulceration, clubbing, or edema. Radial and pedal pulses are 2/4 bilaterally. Delgado with clear yellow urine. Neurological: No focal deficits. Strength and sensation are grossly intact.exam Results CBC & Chem 7: 08/17/16 04:45 08/17/16 04:45 Labs: Abnormal Lab Results - Last 24 Hours (Table) 08/16/16 08/16/16 08/16/16 Range/Units 06:36 14:02 14:02 WBC (3.8-10.6) k/uL RBC 2.56 L (4.30-5.90) m/uL Hgb 7.9 L D (13.0-17.5) gm/dL Hct 23.8 L (39.0-53.0) % RDW (11.5-15.5) % Plt Count 90 L (150-450) k/uL Neutrophils # (Manual) (1.3-7.7) k/uL Lymphocytes # (Manual) (1.0-4.8) k/uL Sodium (137-145) mmol/L Potassium 3.2 L (3.5-5.1) mmol/L Carbon Dioxide (22-30) mmol/L BUN (9-20) mg/dL Creatinine (0.66-1.25) mg/dL Calcium (8.4-10.2) mg/dL Crossmatch See Detail 08/16/16 08/16/16 08/17/16 Range/Units 19:31 19:31 04:45 WBC (3.8-10.6) k/uL RBC 2.11 L (4.30-5.90) m/uL Hgb 6.6 L* (13.0-17.5) gm/dL Hct 19.1 L* (39.0-53.0) % RDW (11.5-15.5) % Plt Count 73 L (150-450) k/uL Neutrophils # (Manual) (1.3-7.7) k/uL Lymphocytes # (Manual) (1.0-4.8) k/uL Sodium 134 L (137-145) mmol/L Potassium 3.3 L 3.4 L (3.5-5.1) mmol/L Carbon Dioxide 20 L (22-30) mmol/L BUN 29 H (9-20) mg/dL Creatinine 1.30 H (0.66-1.25) mg/dL Calcium 7.7 L (8.4-10.2) mg/dL Crossmatch 08/17/16 Range/Units 04:45 WBC 11.4 H (3.8-10.6) k/uL RBC 3.28 L (4.30-5.90) m/uL Hgb 9.8 L D (13.0-17.5) gm/dL Hct 29.2 L (39.0-53.0) % RDW 16.0 H (11.5-15.5) % Plt Count 90 L (150-450) k/uL Neutrophils # (Manual) 10.6 H (1.3-7.7) k/uL Lymphocytes # (Manual) 0.7 L (1.0-4.8) k/uL Sodium (137-145) mmol/L Potassium (3.5-5.1) mmol/L Carbon Dioxide (22-30) mmol/L BUN (9-20) mg/dL Creatinine (0.66-1.25) mg/dL Calcium (8.4-10.2) mg/dL Crossmatch Microbiology - Last 24 Hours (Table) 08/16/16 06:49 Urine Culture - Preliminary Urine,Catheterized Assessment and Plan (1) GI bleed Narrative/Plan: Anemia felt to be related to recurrent malignancy in pelvis exacerbated by anticoagulant therapy and thrombocytopenia Status: Acute (2) Acute blood loss anemia Status: Acute (3) Hematuria Narrative/Plan: Resolved Status: Acute (4) Colon cancer Status: Chronic Plan: 1. Case was discussed with oncologist Dr. Krueger. We'll proceed with conservative measures. At this time patient is not interested in undergoing EGD colonoscopy. Anticoagulation has been discontinued his bleeding has improving. Hematuria has resolved. Overall condition is poor and guarded. Continue to follow CBC closely. GI prophylaxis. We'll follow with you. Thank you for this kind referral and the opportunity to participate in the care of your patient. This consultation was discussed with Dr. Holt. The impression and plan of care have been directed as dictated.
[2016-08-17 11:09] LABS: Anisocytosis Slight; CHCM 31.8; HCT 29.5 % (39.0-53.0); HGB 9.7 gm/dL (13.0-17.5); Hypochromasia Slight; MCH 30.2 pg (25.0-35.0); MCHC 32.8 g/dL (31.0-37.0); MCV 91.9 fL (80.0-100.0); Mean Platelet Volume 9.2; Poikilocytosis Slight; RBC 3.21 m/uL (4.30-5.90); RDW 16.1 % (11.5-15.5); WBC 8.1 k/uL (3.8-10.6)
[2016-08-17 11:10] LABS: INR 1.5 (<1.1); Prothrombin Time 14.7 sec (9.0-12.0)
[2016-08-17 13:27] LABS: Glucose,Whole Blood 93 mg/dL (75-99)
--- NOTE | 2016-08-17 14:14 | P.PN ---
Subjective [id number]old male patient who got transferred from [facility] because of profound anemia and ongoing GI bleeding. 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 He is currently under the care of Dr. Kim. In summary, the patient has been initially diagnosed having rectosigmoid cancer in August 2011. He had T3 N1 M0 lesion with a positive lymph nodes. He refused chemotherapy at that time. He subsequently developed recurrent disease in the left inguinal area and that progressively growing in size. He had systemic chemotherapy with FOLFOX and the later part of 2013 and then radiation therapy in early 2014 at [facility]. He apparently had significant intolerance to chemotherapy which resulted into profound weakness and weight loss and neuropathy. Subsequent CAT scan surveillance on September 2049 showed marked improvement in the left inguinal mass. In April 2015, the patient presented with GI bleeding while he was on Xarelto there was being administered 4 a recent diagnosis of left lower extremity DVT. The anticoagulation was stopped and the patient was given IVC filter. The patient was further found to have a recurrence in his cancer around 20 cm from the anal verge and this was identified on a colonoscopy. A PET scan was done in May 2015 and it showed uptake in 2 distinct retroperitoneal and peritoneal areas where 2 masses were seen. Chemotherapy was recommended but refused. He subsequently had a surgical resection attempt in August 2015. At that time the patient has a large left lower quadrant mass arising from the somewhat excited growing into the left lower abdomen and pelvic sidewall. No other involvement was noted. The left colon was resected however there was residual tumor left and the infection itself was incomplete from the abdominal pelvic wall. Tumor was present in the retroperitoneum which was a direct extension of the main mass. At that time he was referred to oncology and he had one cycle of chemotherapy to which she had very poor tolerance and at that point it was considered that the patient may be a good candidate for hospice. Subsequently, he took further chemotherapy with dose reduction and he received a total of 3 cycles. He was again unable to tolerate treatment because of severe diarrhea and weakness and poor appetite. He was switched to Camptosar alone and he received 2 cycles of systemic chemotherapy last cycle being in June 2016. Note that the patient was in the hospital for rectal bleeding approximately a month ago. He presented emergency department with a hemoglobin of 8.6 and subsequently declined down to 7.5. His platelets were above 100. He was admitted and the bleeding was sees spontaneously and no further intervention was done and he was discharged home. A CAT scan of the abdomen and pelvis that was done at that time showed a large mass in the left lower quadrant that was a representation of recurrent tumor. The mass extension was into the left paraspinal region and displacement of the psoas muscles. There was also involvement of the left ureter with obstruction of the left ureter and left- sided hydronephrosis. The patient also was found to have a moderate free fluid within the right scrotal area/hydrocele and he had also cardiomegaly with extensive atherosclerotic vascular changes. The patient was also found to have a dilated gallbladder. During this current admission, the patient was having on and off active bleeding for the past 2 weeks. He was having loose bowel movements that were bloody and the same time the patient was having bloody urine. Note that the patient was back on Xarelto despite his previous episodes of rectal bleeding. This recommendation was done to him by his flight attendant/inflight supervisor. As such she went back on taken his Xarelto. Note that he has an IVC filter in place. He presented with a profoundly low hemoglobin of 4.4. Platelet counts was 84,000. INR is at 1.7 with a PT of 16.6 and a PTT of 26.9. The patient received a unit of packed RBC and his is currently receiving the second unit. He is currently in the intensive care unit. He is hemodynamically stable. No hypotension. No chest pain. No dizziness. The Delgado catheter was inserted and the patient was found to have bloody urine output. Creatinine is at 1.5. Magnesium level is at 0.9 and a calcium level is at 7.0. On 08/17/2016 the patient remains in intensive care unit. A patient got resuscitated IV fluids and packed RBC transfusion and the patient has a hemoglobin of 9.7 this morning. This last hemoglobin has been stable compared to the one done earlier. The patient had 1 melanotic stool yesterday and none since morning. Hemodynamically stable. Still having hematuria. Seen by urology. Seen by oncology. Seen by gastroenterology. No plans for any immediate intervention. Objective - Vital Signs Vital signs: Vital Signs Temp 98.7 F 08/17/16 12:00 Pulse 77 08/17/16 13:00 Resp 19 08/17/16 13:00 BP 81/53 08/17/16 13:00 Pulse Ox 100 04/27/17 12:00 Intake & Output 08/16/16 08/17/16 08/17/16 18:59 06:59 18:59 Intake Total 1500 2360 1100 Output Total 635 1026 325 Balance 865 1334 775 Weight 64.2 kg 64 kg 64 kg Intake: IV 260 1740 1100 0.9 260 1120 600 PRBC 620 Sodium Chloride 0.9% 1, 500 000 ml @ 999 mls/hr IV . Q1H1M ONE Rx#:[id number] Blood Product 1240 620 Rc As-1 Unit 310 [id number] Rc As-1 Unit 310 [id number] Rc As-1 Unit 310 [id number] Rc As-1 Unit 310 [id number] Output: Urine 635 1026 325 Other: Voiding Method Indwelling Catheter Indwelling Catheter Indwelling Catheter # Bowel Movements 1 - Exam Thank you cachectic male patient, nonacute distress. He looks pale.Head exam was generally normal. There was no scleral icterus or corneal arcus. Mucous membranes were moist.Neck was supple and without jugular venous distension, thyromegaly, or carotid bruits. Carotids were easily palpable bilaterally. There was no adenopathy. Mucous membranes are dry and the patient is conjunctival pallor.Lungs were clear to auscultation and percussion, and with normal diaphragmatic excursion. No wheezes or rales were noted. The patient has a Mediport on the right chest and the pacemaker on the left chest.Cardiac exam revealed the PMI to be normally situated and sized. The rhythm was regular and no extrasystoles were noted during several minutes of auscultation. The first and second heart sounds were normal and physiologic splitting of the second heart sound was noted. There were no murmurs, rubs, clicks, or gallops. Abdomen is showing scars of previous abdominal surgery over that the abdominal wall. No direct tenderness. No rebound tenderness. No guarding. Extremities are showing. No edema. No cyanosis or clubbing at this point. - Labs CBC & Chem 7: 08/17/16 10:24 08/17/16 10:24 Labs: Abnormal Lab Results - Last 24 Hours (Table) 08/16/16 08/16/16 08/16/16 Range/Units 06:36 14:02 14:02 WBC (3.8-10.6) k/uL RBC 2.56 L (4.30-5.90) m/uL Hgb 7.9 L D (13.0-17.5) gm/dL Hct 23.8 L (39.0-53.0) % RDW (11.5-15.5) % Plt Count 90 L (150-450) k/uL Neutrophils # (Manual) (1.3-7.7) k/uL Lymphocytes # (Manual) (1.0-4.8) k/uL PT (9.0-12.0) sec APTT (22.0-30.0) sec Sodium (137-145) mmol/L Potassium 3.2 L (3.5-5.1) mmol/L Carbon Dioxide (22-30) mmol/L BUN (9-20) mg/dL Creatinine (0.66-1.25) mg/dL Calcium (8.4-10.2) mg/dL Crossmatch See Detail 08/16/16 08/16/16 08/17/16 Range/Units 19:31 19:31 04:45 WBC (3.8-10.6) k/uL RBC 2.11 L (4.30-5.90) m/uL Hgb 6.6 L* (13.0-17.5) gm/dL Hct 19.1 L* (39.0-53.0) % RDW (11.5-15.5) % Plt Count 73 L (150-450) k/uL Neutrophils # (Manual) (1.3-7.7) k/uL Lymphocytes # (Manual) (1.0-4.8) k/uL PT (9.0-12.0) sec APTT (22.0-30.0) sec Sodium 134 L (137-145) mmol/L Potassium 3.3 L 3.4 L (3.5-5.1) mmol/L Carbon Dioxide 20 L (22-30) mmol/L BUN 29 H (9-20) mg/dL Creatinine 1.30 H (0.66-1.25) mg/dL Calcium 7.7 L (8.4-10.2) mg/dL Crossmatch 08/17/16 08/17/16 08/17/16 Range/Units 04:45 10:24 10:24 WBC 11.4 H (3.8-10.6) k/uL RBC 3.28 L 3.21 L (4.30-5.90) m/uL Hgb 9.8 L D 9.7 L (13.0-17.5) gm/dL Hct 29.2 L 29.5 L (39.0-53.0) % RDW 16.0 H 16.1 H (11.5-15.5) % Plt Count 90 L 72 L (150-450) k/uL Neutrophils # (Manual) 10.6 H (1.3-7.7) k/uL Lymphocytes # (Manual) 0.7 L (1.0-4.8) k/uL PT 14.7 H (9.0-12.0) sec APTT 32.0 H (22.0-30.0) sec Sodium (137-145) mmol/L Potassium (3.5-5.1) mmol/L Carbon Dioxide (22-30) mmol/L BUN (9-20) mg/dL Creatinine (0.66-1.25) mg/dL Calcium (8.4-10.2) mg/dL Crossmatch Microbiology - Last 24 Hours (Table) 08/16/16 06:49 Urine Culture - Preliminary Urine,Catheterized Assessment and Plan Plan: Assessment 1 profound anemia secondary to ongoing GI bleed. Incentive the patient had blood loss from hematuria and he presented with a hemoglobin of 4.5. Furthermore, the patient has been taking Xarelto as an anticoagulant which contributed and facilitated that his bleeding. The patient is currently being transfused with packed RBC. Hemodynamically stable. 2 recurrent colorectal cancer with a large left lower quadrant mass extending to the psoas muscles and posteriorly to the paraspinal area and invading into the left urinary system causing mass effect on the ureter and obstructive uropathy and hydronephrosis. 3 hematuria secondary to above 4 chronic renal failure secondary to above 5 obstructive uropathy secondary to above 6 recurrent bouts of GI bleed secondary to above 7 DVT with IVC filter placement 8 pacemaker insertion 9 hyperlipidemia 10 hypertension 11 cachexia with ongoing weight loss 12 paroxysmal atrial fibrillation 13 massive electrode imbalance with hypomagnesemia and hypokalemia. Plan The patient got transfused and the patient's hemoglobin is up to 9.8. The patient will be monitored for any further bleeding. No on to coagulation for now. Ultimately and plan is not clear to me as the patient has advanced malignancy and he seems to be not a good candidate for any further interventions being get urologic or gastrointestinal. Oncology has to make it final decision regarding his goal of treatment. Consider hospice. We'll move him out of the intensive care unit if no bleeding over the next 6-12 hours.
[2016-08-17] MEDS ORDERED: HYDROmorphone 1 MG/ML 1 ML SYRINGE IVP PRN (16:32)
--- NOTE | 2016-08-17 17:22 | P.PN ---
Subjective This is a 66-year-old gentleman that comes in the hospital with complains of dizziness. Patient has a history of colon cancer staged at T3 N1 and with positive lymph nodes. Patient underwent chemotherapy has had some signs of recent recurrence with some spread. Patient does have a history of DVT and the proximal atrial fibrillation. Due to the history of rectal bleeding patient was taken off anticoagulation in the past however patient was restarted on anticoagulation by his medical anthropology director 2 weeks ago. Patient states that he's feeling well at this time Denies having any headaches, blurry vision, nausea, vomiting. Patient's last bowel movement apparently was noted to show bright red blood. pt underwent a computed tomography scan of the abdomen and pelvis which showed a large mass in the left lower quadrant which is a recurrence that is new there is some extension into the left paraspinal region into the psoas muscle and into the left ureter. This was in June 2016 which was On his last cycle of chemotherapy. Patient was noted to have significant symptomatic anemia patient was given a total of 3 units of PRBC. Patient was noted to have significant hematochezia and blood in his urine. Currently denies having any additional complaints. Off note patient does have IVC filter as he was noted to have a left lower extremity DVT and has had recurrent episodes of bleeding. 08/17/16 2 episodes RVR . currently stable No other abnormalities discussed PT denies any additional complaints. Objective - Vital Signs Vital signs: Vital Signs Temp 98.7 F 08/17/16 12:00 Pulse 99 08/17/16 16:00 Resp 12 08/17/16 16:00 BP 135/74 08/17/16 16:00 Pulse Ox 100 08/17/16 14:00 Intake & Output 08/16/16 08/17/16 08/17/16 18:59 06:59 18:59 Intake Total 1500 2360 2300 Output Total 635 1026 515 Balance 865 1334 1785 Weight 64.2 kg 64 kg 64 kg Intake: IV 260 1740 2300 0.9 260 1120 800 PRBC 620 Sodium Chloride 0.9% 1, 1500 000 ml @ 999 mls/hr IV . Q1H1M ONE Rx#:[id number] Blood Product 1240 620 Rc As-1 Unit 310 [id number] Rc As-1 Unit 310 [id number] Rc As-1 Unit 310 [id number] As-1 Unit 310 [id number] Output: Urine 635 1026 515 Other: Voiding Method Indwelling Catheter Indwelling Catheter Indwelling Catheter # Bowel Movements 1 - Constitutional General appearance: Present: no acute distress - EENT Eyes: Present: PERRLA - Neck Neck: Present: normal ROM - Respiratory Respiratory: bilateral: diminished, negative: dullness, rales - Cardiovascular Rhythm: irregularly irregular - Gastrointestinal General gastrointestinal: Present: normal bowel sounds, soft. Absent: organomegaly - Neurologic Neurologic: Present: CNII-XII intact. Absent: focal deficits - Musculoskeletal Musculoskeletal: Present: generalized weakness - Psychiatric Psychiatric: Present: A&O x's 3. Absent: appropriate affect - Labs CBC & Chem 7: 08/17/16 10:24 08/17/16 10:24 Labs: Abnormal Lab Results - Last 24 Hours (Table) 08/16/16 08/16/16 08/16/16 Range/Units 06:36 19:31 19:31 WBC (3.8-10.6) k/uL RBC 2.11 L (4.30-5.90) m/uL Hgb 6.6 L* (13.0-17.5) gm/dL Hct 19.1 L* (39.0-53.0) % RDW (11.5-15.5) % Plt Count 73 L (150-450) k/uL Neutrophils # (Manual) (1.3-7.7) k/uL Lymphocytes # (Manual) (1.0-4.8) k/uL PT (9.0-12.0) sec APTT (22.0-30.0) sec Sodium (137-145) mmol/L Potassium 3.3 L (3.5-5.1) mmol/L Carbon Dioxide (22-30) mmol/L BUN (9-20) mg/dL Creatinine (0.66-1.25) mg/dL Calcium (8.4-10.2) mg/dL Crossmatch See Detail 08/17/16 08/17/16 08/17/16 Range/Units 04:45 04:45 10:24 WBC 11.4 H (3.8-10.6) k/uL RBC 3.28 L 3.21 L (4.30-5.90) m/uL Hgb 9.8 L D 9.7 L (13.0-17.5) gm/dL Hct 29.2 L 29.5 L (39.0-53.0) % RDW 16.0 H 16.1 H (11.5-15.5) % Plt Count 90 L 72 L (150-450) k/uL Neutrophils # (Manual) 10.6 H (1.3-7.7) k/uL Lymphocytes # (Manual) 0.7 L (1.0-4.8) k/uL PT (9.0-12.0) sec APTT (22.0-30.0) sec Sodium 134 L (137-145) mmol/L Potassium 3.4 L (3.5-5.1) mmol/L Carbon Dioxide 20 L (22-30) mmol/L BUN 29 H (9-20) mg/dL Creatinine 1.30 H (0.66-1.25) mg/dL Calcium 7.7 L (8.4-10.2) mg/dL Crossmatch 08/17/16 Range/Units 10:24 WBC (3.8-10.6) k/uL RBC (4.30-5.90) m/uL Hgb (13.0-17.5) gm/dL Hct (39.0-53.0) % RDW (11.5-15.5) % Plt Count (150-450) k/uL Neutrophils # (Manual) (1.3-7.7) k/uL Lymphocytes # (Manual) (1.0-4.8) k/uL PT 14.7 H (9.0-12.0) sec APTT 32.0 H (22.0-30.0) sec Sodium (137-145) mmol/L Potassium (3.5-5.1) mmol/L Carbon Dioxide (22-30) mmol/L BUN (9-20) mg/dL Creatinine (0.66-1.25) mg/dL Calcium (8.4-10.2) mg/dL Crossmatch Microbiology - Last 24 Hours (Table) 08/16/16 06:49 Urine Culture - Preliminary Urine,Catheterized Gram Neg Bacilli Assessment and Plan Plan: #1 acute symptomatic anemia secondary to a a GI and source of bleeding. Patient is on xarelto which could account for a GI source of bleeding however after the Delgado/a genitourinary source of bleeding is unlikely from a anticoagulant this is likely from the cancer spread itself. #2 recurrent colorectal cancer appears to be stage IV currently #3 hematorrhea likely from #2 #4 left-sided hydronephrosis secondary to obstructive uropathy secondary to #2 #5 multiple episodes of venous thromboembolism #6 paroxysmal atrial fibrillation #7 severe protein calorie malnutrition #8 hypertension. #9 dyslipidemia #10 hypomagnesemia #11 hypokalemia Plan continues to have hematuria HB stable for now rate control ? Again prognosis of this patient is poor will have oncology discuss further goals of care with the patient.
[2016-08-17 17:25] LABS: Anisocytosis Slight; Basophils % (A) 0 %; Eosinophils % (A) 0 %; HCT 27.6 % (39.0-53.0); HDW 3.76; HGB 9.5 gm/dL (13.0-17.5); Hypochromasia Slight; Luc # (Auto) 0.16; Luc % (Auto) 2; Lymphocytes # (A) 0.3 k/uL (1.0-4.8); Lymphocytes % (A) 3 %; MCH 30.7 pg (25.0-35.0); MCHC 34.6 g/dL (31.0-37.0); MCV 88.8 fL (80.0-100.0); Mean Platelet Volume 8.7; Monocytes # (A) 0.4 k/uL (0-1.0); Monocytes % (A) 4 %; Neutrophils # (A) 8.6 k/uL (1.3-7.7); Neutrophils % (A) 91 %; Poikilocytosis Slight; RBC 3.11 m/uL (4.30-5.90); RDW 16.1 % (11.5-15.5); WBC 9.5 k/uL (3.8-10.6); WBC (Perox) 9.18
[2016-08-17] MEDS: HYDROmorphone 1 MG/ML 1 ML SYRINGE IVP PRN (17:27)
[2016-08-17] MEDS: DILTIAZEM 125 MG in SODIUM CHLORIDE 0.9% 100 ML IV SCH (18:03)
[2016-08-17 18:31] LABS: Glucose,Whole Blood 105 mg/dL (75-99)
[2016-08-17] MEDS: PANTOPRAZOLE 40 MG/10 ML VIAL IVP SCH (21:18)
[2016-08-18] MEDS: ALPRAZolam 0.5 MG TAB PO PRN ×2 (01:01→19:51)
[2016-08-18 05:20] LABS: Anisocytosis Slight; Basophils % (A) 0 %; CH 29.2; CHCM 32.3; Eosinophils % (A) 0 %; HCT 23.8 % (39.0-53.0); HDW 3.49; Hypochromasia Slight; Luc # (Auto) 0.16; Luc % (Auto) 3; Lymphocytes # (A) 0.2 k/uL (1.0-4.8); Lymphocytes % (A) 5 %; MCH 29.2 pg (25.0-35.0); MCV 91.3 fL (80.0-100.0); Mean Platelet Volume 9.5; Monocytes # (A) 0.3 k/uL (0-1.0); Monocytes % (A) 6 %; Neutrophils # (A) 4.2 k/uL (1.3-7.7); Neutrophils % (A) 86 %; Poikilocytosis Slight; RBC 2.61 m/uL (4.30-5.90); RDW 16.2 % (11.5-15.5); WBC (Perox) 4.87
[2016-08-18 05:23] LABS: Anion Gap 3 mmol/L; Blood Urea Nitrogen 26 mg/dL (9-20); Calcium 7.7 mg/dL (8.4-10.2); Carbon Dioxide 21 mmol/L (22-30); Chloride 110 mmol/L (98-107); Glucose 99 mg/dL (74-99); HGB 7.6 gm/dL (13.0-17.5); Non-African American GFR(MDRD) >60 (>60 ml/min/1.73 sqM); Phosphorous 2.8 mg/dL (2.5-4.5); Potassium 3.6 mmol/L (3.5-5.1); Sodium 134 mmol/L (137-145)
[2016-08-18] MEDS ORDERED: Potassium Replacement Protocol 1 EACH MISC MISCELLANE PRN (05:28)
[2016-08-18] MEDS: POTASSIUM CHLORIDE 10 MEQ, LIDOCAINE 2% INJ 10 MG in SODIUM CHLORIDE 0.9% 100 ML IV SCH ×4 (06:26→17:49)
--- NOTE | 2016-08-18 06:52 | XR ---
EXAMINATION TYPE: XR chest 1V portable DATE OF EXAM: 08/18/2016 6:33 AM CLINICAL HISTORY: Difficulty breathing progress study. TECHNIQUE: Single AP portable upright view of the chest is obtained. COMPARISON: Chest x-ray from 2 days earlier. FINDINGS: A right subclavian Mediport catheter is stable in appearance. There is cardiomegaly with a therosclerotic thoracic aorta and dual lead pacemaker redemonstrated. There is mild cardiomegaly with new small left pleural effusion. There is new patchy bibasilar atelectasis and/or infiltrate. Osseou s structures are intact. IMPRESSION: Mild cardiomegaly with new small left pleural effusion and patchy right greater than left bibasilar atelectasis and/or infiltrate all noted.
[2016-08-18] MEDS: PANTOPRAZOLE 40 MG/10 ML VIAL IVP SCH ×2 (08:39→21:29)
[2016-08-18 10:06] LABS: Anisocytosis Slight; CH 29.1; CHCM 32.1; HCT 23.8 % (39.0-53.0); HGB 7.6 gm/dL (13.0-17.5); Hypochromasia Slight; MCH 29.3 pg (25.0-35.0); MCV 91.5 fL (80.0-100.0); Mean Platelet Volume 10.8; Poikilocytosis Slight; RDW 16.2 % (11.5-15.5); WBC 4.2 k/uL (3.8-10.6)
[2016-08-18] MEDS: DILTIAZEM 125 MG in SODIUM CHLORIDE 0.9% 100 ML IV SCH ×2 (13:29→17:50)
[2016-08-18] MEDS: SODIUM CHLORIDE 0.9% 1,000 ML IV SCH (13:30)
[2016-08-18] MEDS ORDERED: DIGOXIN 250 MCG/ML 2 ML AMP IVP ONE (15:52)
--- NOTE | 2016-08-18 16:57 | P.PN ---
Subjective [age]old male patient who got transferred from [facility] because of profound anemia and ongoing GI bleeding. 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 He is currently under the care of Dr. Kim. In summary, the patient has been initially diagnosed having rectosigmoid cancer in August 2011. He had T3 N1 M0 lesion with a positive lymph nodes. He refused chemotherapy at that time. He subsequently developed recurrent disease in the left inguinal area and that progressively growing in size. He had systemic chemotherapy with FOLFOX and the later part of 2013 and then radiation therapy in early 2014 at [facility]. He apparently had significant intolerance to chemotherapy which resulted into profound weakness and weight loss and neuropathy. Subsequent CAT scan surveillance on September 2049 showed marked improvement in the left inguinal mass. In April 2015, the patient presented with GI bleeding while he was on Xarelto there was being administered 4 a recent diagnosis of left lower extremity DVT. The anticoagulation was stopped and the patient was given IVC filter. The patient was further found to have a recurrence in his cancer around 20 cm from the anal verge and this was identified on a colonoscopy. A PET scan was done in May 2015 and it showed uptake in 2 distinct retroperitoneal and peritoneal areas where 2 masses were seen. Chemotherapy was recommended but refused. He subsequently had a surgical resection attempt in August 2015. At that time the patient has a large left lower quadrant mass arising from the somewhat excited growing into the left lower abdomen and pelvic sidewall. No other involvement was noted. The left colon was resected however there was residual tumor left and the infection itself was incomplete from the abdominal pelvic wall. Tumor was present in the retroperitoneum which was a direct extension of the main mass. At that time he was referred to oncology and he had one cycle of chemotherapy to which she had very poor tolerance and at that point it was considered that the patient may be a good candidate for hospice. Subsequently, he took further chemotherapy with dose reduction and he received a total of 3 cycles. He was again unable to tolerate treatment because of severe diarrhea and weakness and poor appetite. He was switched to Camptosar alone and he received 2 cycles of systemic chemotherapy last cycle being in June 2016. Note that the patient was in the hospital for rectal bleeding approximately a month ago. He presented emergency department with a hemoglobin of 8.6 and subsequently declined down to 7.5. His platelets were above 100. He was admitted and the bleeding was sees spontaneously and no further intervention was done and he was discharged home. A CAT scan of the abdomen and pelvis that was done at that time showed a large mass in the left lower quadrant that was a representation of recurrent tumor. The mass extension was into the left paraspinal region and displacement of the psoas muscles. There was also involvement of the left ureter with obstruction of the left ureter and left- sided hydronephrosis. The patient also was found to have a moderate free fluid within the right scrotal area/hydrocele and he had also cardiomegaly with extensive atherosclerotic vascular changes. The patient was also found to have a dilated gallbladder. During this current admission, the patient was having on and off active bleeding for the past 2 weeks. He was having loose bowel movements that were bloody and the same time the patient was having bloody urine. Note that the patient was back on Xarelto despite his previous episodes of rectal bleeding. This recommendation was done to him by his document management specialist. As such she went back on taken his Xarelto. Note that he has an IVC filter in place. He presented with a profoundly low hemoglobin of 4.4. Platelet counts was 84,000. INR is at 1.7 with a PT of 16.6 and a PTT of 26.9. The patient received a unit of packed RBC and his is currently receiving the second unit. He is currently in the intensive care unit. He is hemodynamically stable. No hypotension. No chest pain. No dizziness. The Delgado catheter was inserted and the patient was found to have bloody urine output. Creatinine is at 1.5. Magnesium level is at 0.9 and a calcium level is at 7.0. On 08/17/2016 the patient remains in intensive care unit. A patient got resuscitated IV fluids and packed RBC transfusion and the patient has a hemoglobin of 9.7 this morning. This last hemoglobin has been stable compared to the one done earlier. The patient had 1 melanotic stool yesterday and none since morning. Hemodynamically stable. Still having hematuria. Seen by urology. Seen by oncology. Seen by gastroenterology. No plans for any immediate intervention. 08/18/2016, the patient is still in the intensive care unit. He was kept in ICU as the patient was having episodes of atrial fibrillation with rapid ventricular response. Note that yesterday afternoon the patient was started on Cardizem drip at 5 mg an hour and later this afternoon the dose was increased up to 10 mg an hour. Note that the patient is still having hematuria. No active bright red blood per rectum or GI bleeding was noted. No nausea. No vomiting. The patient is taking minimal amount of clear liquid diet and obviously he is not meeting his caloric requirements. He had significant electrodes imbalance the time of admission which got the place. The potassium level remains low at 3.5 and is being supplemented. The magnesium level is up to 2.0. Phosphorus level is up to 2.8. Morning hemoglobin is at 1.6. I increased his IV fluids to normal saline today to 100 mL an hour. We are still awaiting final recommendations from oncology as far as goals of treatment if the patient is possibly a candidate for any further treatment versus hospice. Objective - Vital Signs Vital signs: Vital Signs Temp 97.4 F L 08/18/16 12:00 Pulse 99 08/18/16 15:00 Resp 16 08/18/16 15:00 BP 116/74 08/18/16 15:00 Pulse Ox 92 L 08/18/16 15:00 Intake & Output 08/17/16 08/18/16 08/18/16 18:59 06:59 18:59 Intake Total 2500 1350 815.250 Output Total 605 434 340 Balance 1895 916 475.250 Weight 64 kg 67.9 kg 67.9 kg Intake: IV 2500 1350 140 0.9 Normal Saline 1000 1200 140 Potassium Chloride 10 meq 100 Lidocaine 2% Inj 10 mg In Sodium Chloride 0.9% 100 ml @ 100 mls/hr IV Q1HR [facility] Rx#:[id number] Sodium Chloride 0.9% 1, 1500 000 ml @ 999 mls/hr IV . Q1H1M [facility] Rx#:[id number] cefTRIAXone 1,000 mg In 50 Sodium Chloride 0.9% 50 ml @ 100 mls/hr IVPB Q24HR [facility] Rx#:[id number] Intake, IV Titration 675.250 Amount Diltiazem 125 mg In 125.250 Sodium Chloride 0.9% 100 ml @ 10 MG/HR 10 mls/hr IV .[id number] [facility] Rx#: [id number] Potassium Chloride 10 meq 200 Lidocaine 2% Inj 10 mg In Sodium Chloride 0.9% 100 ml @ 100 mls/hr IV Q1HR [facility] Rx#:[id number] Sodium Chloride 0.9% 1, 300 000 ml @ 100 mls/hr IV . Q10H [facility] Rx#:[id number] cefTRIAXone 1,000 mg In 50 Sodium Chloride 0.9% 50 ml @ 100 mls/hr IVPB Q24HR [facility] Rx#:[id number] Output: Urine 605 434 340 Other: Voiding Method Indwelling Catheter Indwelling Catheter Indwelling Catheter # Bowel Movements 1 - Exam Thank you cachectic male patient, nonacute distress. He looks pale.Head exam was generally normal. There was no scleral icterus or corneal arcus. Mucous membranes were moist.Neck was supple and without jugular venous distension, thyromegaly, or carotid bruits. Carotids were easily palpable bilaterally. There was no adenopathy. Mucous membranes are dry and the patient is conjunctival pallor.Lungs were clear to auscultation and percussion, and with normal diaphragmatic excursion. No wheezes or rales were noted. The patient has a Mediport on the right chest and the pacemaker on the left chest.Cardiac exam revealed the PMI to be normally situated and sized. The rhythm was regular and no extrasystoles were noted during several minutes of auscultation. The first and second heart sounds were normal and physiologic splitting of the second heart sound was noted. There were no murmurs, rubs, clicks, or gallops. Abdomen is showing scars of previous abdominal surgery over that the abdominal wall. No direct tenderness. No rebound tenderness. No guarding. Extremities are showing. No edema. No cyanosis or clubbing at this point. - Labs CBC & Chem 7: 08/18/16 09:58 08/18/16 09:55 Labs: Abnormal Lab Results - Last 24 Hours (Table) 08/17/16 08/17/16 08/18/16 Range/Units 17:12 18:11 04:21 RBC 3.11 L 2.61 L (4.30-5.90) m/uL Hgb 9.5 L 7.6 L D (13.0-17.5) gm/dL Hct 27.6 L 23.8 L (39.0-53.0) % RDW 16.1 H 16.2 H (11.5-15.5) % Plt Count 78 L 62 L (150-450) k/uL Neutrophils # 8.6 H (1.3-7.7) k/uL Lymphocytes # 0.3 L 0.2 L (1.0-4.8) k/uL Sodium (137-145) mmol/L Chloride (98-107) mmol/L Carbon Dioxide (22-30) mmol/L BUN (9-20) mg/dL POC Glucose (mg/dL) 105 H (75-99) mg/dL Calcium (8.4-10.2) mg/dL 08/18/16 08/18/16 Range/Units 04:21 09:58 RBC 2.60 L (4.30-5.90) m/uL Hgb 7.6 L (13.0-17.5) gm/dL Hct 23.8 L (39.0-53.0) % RDW 16.2 H (11.5-15.5) % Plt Count 55 L (150-450) k/uL Neutrophils # (1.3-7.7) k/uL Lymphocytes # (1.0-4.8) k/uL Sodium 134 L (137-145) mmol/L Chloride 110 H (98-107) mmol/L Carbon Dioxide 21 L (22-30) mmol/L BUN 26 H (9-20) mg/dL POC Glucose (mg/dL) (75-99) mg/dL Calcium 7.7 L (8.4-10.2) mg/dL Microbiology - Last 24 Hours (Table) 08/16/16 06:49 Urine Culture - Final Urine,Catheterized Klebsiella pneumoniae Assessment and Plan Plan: Assessment 1 profound anemia secondary to ongoing GI bleed. Incentive the patient had blood loss from hematuria and he presented with a hemoglobin of 4.5. Furthermore, the patient has been taking Xarelto as an anticoagulant which contributed and facilitated that his bleeding. The patient is currently being transfused with packed RBC. Hemodynamically stable. On 08/18/2016, the patient shows no active GI bleeding. The patient is off Xarelto. She will been stable at 7.6. On and off the patient is having episodes of atrial fibrillation with rapid ventricular response and for that reason the patient is being titrated with Cardizem drip rates being adjusted based on the patient's heart rate and blood pressure. 2 recurrent colorectal cancer with a large left lower quadrant mass extending to the psoas muscles and posteriorly to the paraspinal area and invading into the left urinary system causing mass effect on the ureter and obstructive uropathy and hydronephrosis. 3 hematuria secondary to above, the patient is still having active hematuria. 4 acute kidney injury, improved. The patient has obstructive uropathy and hydronephrosis in his left kidney secondary to the pelvic mass/recurrent colorectal tumor. 5 obstructive uropathy secondary to above 6 recurrent bouts of GI bleed secondary to above 7 DVT with IVC filter placement 8 pacemaker insertion 9 hyperlipidemia 10 hypertension 11 cachexia with ongoing weight loss 12 paroxysmal atrial fibrillation him a currently on a Cardizem drip for rate control 13 massive electrode imbalance with hypomagnesemia and hypokalemia. Plan 18 final recommendations from oncology regarding goals of treatment and possibility of hospice care. Meanwhile we'll support the patient. The patient will be given IV fluids. Will monitor hemoglobin. Cardizem drip will be titrated between 5 and 10 and 50 mg depending on his heart rate and blood pressure response. No anticoagulants. Monitor hematuria. Watch for any GI bleeding. Keep the patient on clear liquid diet and no plans to advance his diet or now. GI seems to have signed off the case.
--- NOTE | 2016-08-18 17:45 | P.PN ---
Subjective This is a 66-year-old gentleman that comes in the hospital with complains of dizziness. Patient has a history of colon cancer staged at T3 N1 and with positive lymph nodes. Patient underwent chemotherapy has had some signs of recent recurrence with some spread. Patient does have a history of DVT and the proximal atrial fibrillation. Due to the history of rectal bleeding patient was taken off anticoagulation in the past however patient was restarted on anticoagulation by his supervisor inspection and testing 2 weeks ago. Patient states that he's feeling well at this time Denies having any headaches, blurry vision, nausea, vomiting. Patient's last bowel movement apparently was noted to show bright red blood. pt underwent a computed tomography scan of the abdomen and pelvis which showed a large mass in the left lower quadrant which is a recurrence that is new there is some extension into the left paraspinal region into the psoas muscle and into the left ureter. This was in June 2016 which was On his last cycle of chemotherapy. Patient was noted to have significant symptomatic anemia patient was given a total of 3 units of PRBC. Patient was noted to have significant hematochezia and blood in his urine. Currently denies having any additional complaints. Off note patient does have IVC filter as he was noted to have a left lower extremity DVT and has had recurrent episodes of bleeding. 08/17/16 2 episodes RVR . currently stable No other abnormalities discussed PT denies any additional complaints. 08/18/16 another episode of a fib with rvr on cardizem drip with rate controlled a fib Denies having any additional complaints including chest pain, nausea, vomiting, headaches, blurry vision continues to have hematuria. Objective - Vital Signs Vital signs: Vital Signs Temp 97.4 F L 08/18/16 12:00 Pulse 99 08/18/16 15:00 Resp 16 08/18/16 15:00 BP 116/74 08/18/16 15:00 Pulse Ox 92 L 08/18/16 15:00 Intake & Output 08/17/16 08/18/16 08/18/16 18:59 06:59 18:59 Intake Total 2500 1350 815.250 Output Total 605 434 340 Balance 1895 916 475.250 Weight 64 kg 67.9 kg 67.9 kg Intake: IV 2500 1350 140 0.9 Normal Saline 1000 1200 140 Potassium Chloride 10 meq 100 Lidocaine 2% Inj 10 mg In Sodium Chloride 0.9% 100 ml @ 100 mls/hr IV Q1HR [facility] Rx#:[id number] Sodium Chloride 0.9% 1, 1500 000 ml @ 999 mls/hr IV . Q1H1M [facility] Rx#:[id number] cefTRIAXone 1,000 mg In 50 Sodium Chloride 0.9% 50 ml @ 100 mls/hr IVPB Q24HR [facility] Rx#:[id number] Intake, IV Titration 675.250 Amount Diltiazem 125 mg In 125.250 Sodium Chloride 0.9% 100 ml @ 10 MG/HR 10 mls/hr IV .[id number] [facility] Rx#: [id number] Potassium Chloride 10 meq 200 Lidocaine 2% Inj 10 mg In Sodium Chloride 0.9% 100 ml @ 100 mls/hr IV Q1HR [facility] Rx#:[id number] Sodium Chloride 0.9% 1, 300 000 ml @ 100 mls/hr IV . Q10H [facility] Rx#:[id number] cefTRIAXone 1,000 mg In 50 Sodium Chloride 0.9% 50 ml @ 100 mls/hr IVPB Q24HR [facility] Rx#:[id number] Output: Urine 605 434 340 Other: Voiding Method Indwelling Catheter Indwelling Catheter Indwelling Catheter # Bowel Movements 1 - EENT Eyes: Present: PERRLA - Neck Neck: Present: normal ROM - Respiratory Respiratory: bilateral: CTA, negative: dullness, rales, rhonchi, wheezing - Cardiovascular Rhythm: irregularly irregular Abnormal Heart Sounds: Absent: systolic murmur - Gastrointestinal General gastrointestinal: Present: normal bowel sounds, soft, tenderness ( diffusely) - Genitourinary Genitourinary Comment(s): barrios in place gross hematuria - Neurologic Neurologic: Present: CNII-XII intact. Absent: focal deficits - Musculoskeletal Musculoskeletal: Present: generalized weakness - Psychiatric Psychiatric: Present: A&O x's 3 (flat affect) - Labs CBC & Chem 7: 08/18/16 09:58 08/18/16 09:55 Labs: Abnormal Lab Results - Last 24 Hours (Table) 08/17/16 08/18/16 08/18/16 Range/Units 18:11 04:21 04:21 RBC 2.61 L (4.30-5.90) m/uL Hgb 7.6 L D (13.0-17.5) gm/dL Hct 23.8 L (39.0-53.0) % RDW 16.2 H (11.5-15.5) % Plt Count 62 L (150-450) k/uL Lymphocytes # 0.2 L (1.0-4.8) k/uL Sodium 134 L (137-145) mmol/L Chloride 110 H (98-107) mmol/L Carbon Dioxide 21 L (22-30) mmol/L BUN 26 H (9-20) mg/dL POC Glucose (mg/dL) 105 H (75-99) mg/dL Calcium 7.7 L (8.4-10.2) mg/dL 08/18/16 Range/Units 09:58 RBC 2.60 L (4.30-5.90) m/uL Hgb 7.6 L (13.0-17.5) gm/dL Hct 23.8 L (39.0-53.0) % RDW 16.2 H (11.5-15.5) % Plt Count 55 L (150-450) k/uL Lymphocytes # (1.0-4.8) k/uL Sodium (137-145) mmol/L Chloride (98-107) mmol/L Carbon Dioxide (22-30) mmol/L BUN (9-20) mg/dL POC Glucose (mg/dL) (75-99) mg/dL Calcium (8.4-10.2) mg/dL Microbiology - Last 24 Hours (Table) 08/16/16 06:49 Urine Culture - Final Urine,Catheterized Klebsiella pneumoniae Assessment and Plan Plan: #1 acute symptomatic anemia secondary to a a GI and source of bleeding. Patient is on xarelto which could account for a GI source of bleeding however after the Barrios/a genitourinary source of bleeding is unlikely from a anticoagulant this is likely from the cancer spread itself. #2 recurrent colorectal cancer appears to be stage IV currently #3 hematorrhea likely from #2 #4 left-sided hydronephrosis secondary to obstructive uropathy secondary to #2 #5 multiple episodes of venous thromboembolism #6 paroxysmal atrial fibrillation #7 severe protein calorie malnutrition #8 hypertension. #9 dyslipidemia #10 hypomagnesemia #11 hypokalemia Plan continues to have hematuria HB stable for now continue cardizem low bp, will titrate down on cardizem and add one dose of digoxin Again prognosis of this patient is poor will have oncology discuss further goals of care with the patient.discussed with oncology today family meeting to be held likely on sunday pt is not receptive to the conversation in regards to his goals of care
[2016-08-18] MEDS: HYDROmorphone 1 MG/ML 1 ML SYRINGE IVP PRN (21:27)
[2016-08-18] MEDS: oxyCODONE-APAP 10-325MG 1 EACH TAB PO PRN (22:02)
[2016-08-19] MEDS: SODIUM CHLORIDE 0.9% 1,000 ML IV SCH ×3 (02:13→22:18)
[2016-08-19 05:39] LABS: Anisocytosis Slight; Basophils % (A) 0 %; CH 28.9; CHCM 31.5; Eosinophils % (A) 0 %; HCT 24.6 % (39.0-53.0); HDW 3.41; HGB 7.8 gm/dL (13.0-17.5); Hypochromasia Moderate; Luc # (Auto) 0.16; Luc % (Auto) 4; Lymphocytes # (A) 0.3 k/uL (1.0-4.8); Lymphocytes % (A) 8 %; MCH 29.3 pg (25.0-35.0); MCHC 31.7 g/dL (31.0-37.0); MCV 92.6 fL (80.0-100.0); Mean Platelet Volume 8.9; Monocytes # (A) 0.2 k/uL (0-1.0); Monocytes % (A) 5 %; Neutrophils # (A) 3.2 k/uL (1.3-7.7); Neutrophils % (A) 82 %; Poikilocytosis Slight; RBC 2.66 m/uL (4.30-5.90); WBC 3.9 k/uL (3.8-10.6); WBC (Perox) 4.08
[2016-08-19 05:55] LABS: ALT 37 U/L (21-72); AST 39 U/L (17-59); Alkaline Phosphatase 52 U/L (38-126); Anion Gap 1 mmol/L; Blood Urea Nitrogen 22 mg/dL (9-20); Carbon Dioxide 22 mmol/L (22-30); Chloride 111 mmol/L (98-107); Glucose 91 mg/dL (74-99); Magnesium 1.8 mg/dL (1.6-2.3); Non-African American GFR(MDRD) >60 (>60 ml/min/1.73 sqM); Phosphorous 2.1 mg/dL (2.5-4.5); Potassium 3.6 mmol/L (3.5-5.1); Sodium 134 mmol/L (137-145); Total Bilirubin 0.6 mg/dL (0.2-1.3); Total Protein 3.8 g/dL (6.3-8.2)
[2016-08-19] MEDS ORDERED: Magnesium Replacement Protocol 1 EACH MISC MISCELLANE PRN (05:59)
[2016-08-19] MEDS ORDERED: Potassium Replacement Protocol 1 EACH MISC MISCELLANE PRN (05:59)
[2016-08-19] MEDS: MAGNESIUM SULFATE-D5W PMX 1 GM in DEXTROSE/WATER 1 100ML.BAG IVPB SCH ×2 (06:53→08:49)
[2016-08-19] MEDS ORDERED: POTASSIUM CHLORIDE ER 20 MEQ TAB.ER PO SCH (07:00)
[2016-08-19] MEDS: DILTIAZEM 125 MG in SODIUM CHLORIDE 0.9% 100 ML IV SCH ×2 (08:39→17:27)
[2016-08-19] MEDS: PANTOPRAZOLE 40 MG/10 ML VIAL IVP SCH ×2 (08:49→22:18)
--- NOTE | 2016-08-19 09:48 | P.PN ---
Subjective [id number]old male patient who got transferred from [facility] because of profound anemia and ongoing GI bleeding. 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 He is currently under the care of Dr. Kim. In summary, the patient has been initially diagnosed having rectosigmoid cancer in August 2011. He had T3 N1 M0 lesion with a positive lymph nodes. He refused chemotherapy at that time. He subsequently developed recurrent disease in the left inguinal area and that progressively growing in size. He had systemic chemotherapy with FOLFOX and the later part of 2013 and then radiation therapy in early 2014 at [facility]. He apparently had significant intolerance to chemotherapy which resulted into profound weakness and weight loss and neuropathy. Subsequent CAT scan surveillance on September 2049 showed marked improvement in the left inguinal mass. In April 2015, the patient presented with GI bleeding while he was on Xarelto there was being administered 4 a recent diagnosis of left lower extremity DVT. The anticoagulation was stopped and the patient was given IVC filter. The patient was further found to have a recurrence in his cancer around 20 cm from the anal verge and this was identified on a colonoscopy. A PET scan was done in May 2015 and it showed uptake in 2 distinct retroperitoneal and peritoneal areas where 2 masses were seen. Chemotherapy was recommended but refused. He subsequently had a surgical resection attempt in August 2015. At that time the patient has a large left lower quadrant mass arising from the somewhat excited growing into the left lower abdomen and pelvic sidewall. No other involvement was noted. The left colon was resected however there was residual tumor left and the infection itself was incomplete from the abdominal pelvic wall. Tumor was present in the retroperitoneum which was a direct extension of the main mass. At that time he was referred to oncology and he had one cycle of chemotherapy to which she had very poor tolerance and at that point it was considered that the patient may be a good candidate for hospice. Subsequently, he took further chemotherapy with dose reduction and he received a total of 3 cycles. He was again unable to tolerate treatment because of severe diarrhea and weakness and poor appetite. He was switched to Camptosar alone and he received 2 cycles of systemic chemotherapy last cycle being in June 2016. Note that the patient was in the hospital for rectal bleeding approximately a month ago. He presented emergency department with a hemoglobin of 8.6 and subsequently declined down to 7.5. His platelets were above 100. He was admitted and the bleeding was sees spontaneously and no further intervention was done and he was discharged home. A CAT scan of the abdomen and pelvis that was done at that time showed a large mass in the left lower quadrant that was a representation of recurrent tumor. The mass extension was into the left paraspinal region and displacement of the psoas muscles. There was also involvement of the left ureter with obstruction of the left ureter and left- sided hydronephrosis. The patient also was found to have a moderate free fluid within the right scrotal area/hydrocele and he had also cardiomegaly with extensive atherosclerotic vascular changes. The patient was also found to have a dilated gallbladder. During this current admission, the patient was having on and off active bleeding for the past 2 weeks. He was having loose bowel movements that were bloody and the same time the patient was having bloody urine. Note that the patient was back on Xarelto despite his previous episodes of rectal bleeding. 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 As such she went back on taken his Xarelto. Note that he has an IVC filter in place. He presented with a profoundly low hemoglobin of 4.4. Platelet counts was 84,000. INR is at 1.7 with a PT of 16.6 and a PTT of 26.9. The patient received a unit of packed RBC and his is currently receiving the second unit. He is currently in the intensive care unit. He is hemodynamically stable. No hypotension. No chest pain. No dizziness. The Delgado catheter was inserted and the patient was found to have bloody urine output. Creatinine is at 1.5. Magnesium level is at 0.9 and a calcium level is at 7.0. On 08/17/2016 the patient remains in intensive care unit. A patient got resuscitated IV fluids and packed RBC transfusion and the patient has a hemoglobin of 9.7 this morning. This last hemoglobin has been stable compared to the one done earlier. The patient had 1 melanotic stool yesterday and none since morning. Hemodynamically stable. Still having hematuria. Seen by urology. Seen by oncology. Seen by gastroenterology. No plans for any immediate intervention. 08/18/2016, the patient is still in the intensive care unit. He was kept in ICU as the patient was having episodes of atrial fibrillation with rapid ventricular response. Note that yesterday afternoon the patient was started on Cardizem drip at 5 mg an hour and later this afternoon the dose was increased up to 10 mg an hour. Note that the patient is still having hematuria. No active bright red blood per rectum or GI bleeding was noted. No nausea. No vomiting. The patient is taking minimal amount of clear liquid diet and obviously he is not meeting his caloric requirements. He had significant electrodes imbalance the time of admission which got the place. The potassium level remains low at 3.5 and is being supplemented. The magnesium level is up to 2.0. Phosphorus level is up to 2.8. Morning hemoglobin is at 1.6. I increased his IV fluids to normal saline today to 100 mL an hour. We are still awaiting final recommendations from oncology as far as goals of treatment if the patient is possibly a candidate for any further treatment versus hospice. 08/19/2016, I'm seeing this patient in follow-up. The patient has not had any episodes of GI bleeding. Is having, but hematuria. He had some plugging of his Delgado catheter yesterday. Urology was informed. The Delgado catheter was placed and the patient currently has a 20 coude. The catheter is being irrigated frequently by the nursing staff. Hemoglobin is stable. His atrial fibrillation was under better control and the Cardizem drip was discontinued. This morning after he woke up his heart rate started getting tachycardic again in the 120 and 130 and the Cardizem drip had to be restarted at 5 mg an hour. Oncology is meeting with the family and the patient after repeating the CAT scan of the abdomen and pelvis today to reassess the extent of malignancy. Based on the findings, final recommendations will be done as far as CODE STATUS and does of treatment. Patient is comfortable. The patient is eating only 20% of his clear liquid diet and I think we should be able to advance his diet today. Objective - Vital Signs Vital signs: Vital Signs Temp 96.4 F L 08/19/16 09:00 Pulse 120 H 08/19/16 09:00 Resp 11 L 08/19/16 09:00 BP 113/81 08/19/16 09:00 Pulse Ox 100 08/19/16 09:00 Intake & Output 08/18/16 08/19/16 08/19/16 18:59 06:59 18:59 Intake Total 285.844 9556.833 400 Output Total 377 3230 415 Balance 576.417 -1989.167 -15 Weight 67.9 kg 72.2 kg 72.2 kg Intake: IV 140 1200 200 0.9 Normal Saline 140 Sodium Chloride 0.9% 1, 1200 200 000 ml @ 100 mls/hr IV . Q10H FORD Rx#:[id number] Intake, IV Titration 813.417 40.833 200 Amount Diltiazem 125 mg In 163.417 40.833 0 Sodium Chloride 0.9% 100 ml @ 10 MG/HR 10 mls/hr IV .[id number] FORD Rx#: [id number] Magnesium Sulfate-D5w Pmx 200 1 gm In Dextrose/Water 1 100ml.bag @ 100 mls/hr IVPB Q1H [facility]D Rx#: [id number] Potassium Chloride 10 meq 200 Lidocaine 2% Inj 10 mg In Sodium Chloride 0.9% 100 ml @ 100 mls/hr IV Q1HR FORD Rx#:[id number] Sodium Chloride 0.9% 1, 400 000 ml @ 100 mls/hr IV . Q10H FODR Rx#:[id number] cefTRIAXone 1,000 mg In 50 Sodium Chloride 0.9% 50 ml @ 100 mls/hr IVPB Q24HR FORD Rx#:[id number] Output: Urine 377 3230 415 Other: Voiding Method Indwelling Catheter Indwelling Catheter - Exam Thank you cachectic male patient, nonacute distress. He looks pale.Head exam was generally normal. There was no scleral icterus or corneal arcus. Mucous membranes were moist.Neck was supple and without jugular venous distension, thyromegaly, or carotid bruits. Carotids were easily palpable bilaterally. There was no adenopathy. Mucous membranes are dry and the patient is conjunctival pallor.Lungs were clear to auscultation and percussion, and with normal diaphragmatic excursion. No wheezes or rales were noted. The patient has a Mediport on the right chest and the pacemaker on the left chest.Cardiac exam revealed the PMI to be normally situated and sized. The rhythm was regular and no extrasystoles were noted during several minutes of auscultation. The first and second heart sounds were normal and physiologic splitting of the second heart sound was noted. There were no murmurs, rubs, clicks, or gallops. Abdomen is showing scars of previous abdominal surgery over that the abdominal wall. No direct tenderness. No rebound tenderness. No guarding. Extremities are showing. No edema. No cyanosis or clubbing at this point. - Labs CBC & Chem 7: 08/19/16 05:08 08/19/16 05:08 Labs: Abnormal Lab Results - Last 24 Hours (Table) 08/18/16 08/19/16 08/19/16 Range/Units 09:58 05:08 05:08 RBC 2.60 L 2.66 L (4.30-5.90) m/uL Hgb 7.6 L 7.8 L (13.0-17.5) gm/dL Hct 23.8 L 24.6 L (39.0-53.0) % RDW 16.2 H 16.0 H (11.5-15.5) % Plt Count 55 L 67 L (150-450) k/uL Lymphocytes # 0.3 L (1.0-4.8) k/uL Sodium 134 L (137-145) mmol/L Chloride 111 H (98-107) mmol/L BUN 22 H (9-20) mg/dL Calcium 8.0 L (8.4-10.2) mg/dL Phosphorus 2.1 L (2.5-4.5) mg/dL Total Protein 3.8 L (6.3-8.2) g/dL Albumin 1.7 L (3.5-5.0) g/dL Microbiology - Last 24 Hours (Table) 08/16/16 06:49 Urine Culture - Final Urine,Catheterized Klebsiella pneumoniae Assessment and Plan Plan: Assessment 1 profound anemia secondary to ongoing GI bleed. Incentive the patient had blood loss from hematuria and he presented with a hemoglobin of 4.5. Furthermore, the patient has been taking Xarelto as an anticoagulant which contributed and facilitated that his bleeding. The patient is currently being transfused with packed RBC. Hemodynamically stable. On 08/18/2016, the patient shows no active GI bleeding. The patient is off Xarelto. She will been stable at 7.6. On and off the patient is having episodes of atrial fibrillation with rapid ventricular response and for that reason the patient is being titrated with Cardizem drip rates being adjusted based on the patient's heart rate and blood pressure. On 08/19/2016, we have not witnessed any active GI bleeding. The patient remains of Xarelto. Today's hemoglobin is at 7.8 2 recurrent colorectal cancer with a large left lower quadrant mass extending to the psoas muscles and posteriorly to the paraspinal area and invading into the left urinary system causing mass effect on the ureter and obstructive uropathy and hydronephrosis. 3 hematuria secondary to above, the patient is still having active hematuria. The Delgado catheter was constantly being flushed and a 20 coude was inserted. No passage of any blood clots 4 acute kidney injury, improved. The patient has obstructive uropathy and hydronephrosis in his left kidney secondary to the pelvic mass/recurrent colorectal tumor. 5 obstructive uropathy secondary to above 6 recurrent bouts of GI bleed secondary to above 7 DVT with IVC filter placement 8 pacemaker insertion 9 hyperlipidemia 10 hypertension 11 cachexia with ongoing weight loss 12 paroxysmal atrial fibrillation him a currently on a Cardizem drip for rate control 13 massive electrode imbalance with hypomagnesemia and hypokalemia. The electrodes have been noted placed Plan The patient will be started on Metoprolol 25 mg by mouth twice a day. We'll monitor his blood pressure and make adjustments accordingly. The patient has been taking apparently a total of 150 mg of metoprolol twice a day on outpatient basis. I think this is a large dose it may cause some hypotension. Meanwhile we'll titrate the Cardizem drip regarding his atrial fibrillation. CAT scan of the abdomen and pelvis will be done today. The patient is a selective overflow. We'll monitor his hemoglobin. We'll monitor the hematuria. Frequent flushing of the Delgado catheter. Prognosis poor and final recommendations to be made by oncology regarding his CODE STATUS. I will offer this patient soft diet
[2016-08-19] MEDS ORDERED: RX INFO: IV CONTRAST WAS GIVEN 1 EACH MISC MISCELLANE PRN (09:58)
[2016-08-19] MEDS ORDERED: IOHEXOL 350 MG/ML 25 ML BOTTLE (ORAL USE) PO PRN (09:58)
--- NOTE | 2016-08-19 10:04 | P.PN ---
Subjective The patient is still having some bleeding in the Delgado. Bleeding per rectum has decreased. He remains quite weak. Objective - Vital Signs Vital signs: Vital Signs Temp 96.4 F L 08/19/16 09:00 Pulse 120 H 08/19/16 09:00 Resp 11 L 08/19/16 09:00 BP 113/81 08/19/16 09:00 Pulse Ox 100 08/19/16 09:00 Intake & Output 08/18/16 08/19/16 08/19/16 18:59 06:59 18:59 Intake Total 253.889 0351.833 400 Output Total 377 3230 415 Balance 576.417 -1989.167 -15 Weight 67.9 kg 72.2 kg 72.2 kg Intake: IV 140 1200 200 0.9 Normal Saline 140 Sodium Chloride 0.9% 1, 1200 200 000 ml @ 100 mls/hr IV . Q10H [facility] Rx#:[id number] Intake, IV Titration 813.417 40.833 200 Amount Diltiazem 125 mg In 163.417 40.833 0 Sodium Chloride 0.9% 100 ml @ 10 MG/HR 10 mls/hr IV .[id number] [facility] Rx#: [id number] Magnesium Sulfate-D5w Pmx 200 1 gm In Dextrose/Water 1 100ml.bag @ 100 mls/hr IVPB Q1H [facility]D Rx#: [id number] Potassium Chloride 10 meq 200 Lidocaine 2% Inj 10 mg In Sodium Chloride 0.9% 100 ml @ 100 mls/hr IV Q1HR FORD Rx#:[id number] Sodium Chloride 0.9% 1, 400 000 ml @ 100 mls/hr IV . Q10H [facility]D Rx#:[id number] cefTRIAXone 1,000 mg In 50 Sodium Chloride 0.9% 50 ml @ 100 mls/hr IVPB Q24HR [facility]D Rx#:[id number] Output: Urine 377 3230 415 Other: Voiding Method Indwelling Catheter Indwelling Catheter - Constitutional General appearance: Present: no acute distress - EENT Eyes: Present: EOMI, PERRLA ENT: Present: hearing grossly normal, normal oropharynx - Respiratory Respiratory: bilateral: diminished - Cardiovascular Rhythm: irregularly irregular Heart sounds: normal: S1, S2 - Gastrointestinal General gastrointestinal: Present: normal bowel sounds, soft - Neurologic Neurologic: Present: CNII-XII intact - Musculoskeletal Musculoskeletal: Present: generalized weakness, strength equal bilaterally - Labs CBC & Chem 7: 08/19/16 05:08 08/19/16 05:08 Labs: Abnormal Lab Results - Last 24 Hours (Table) 08/18/16 08/19/16 08/19/16 Range/Units 09:58 05:08 05:08 RBC 2.60 L 2.66 L (4.30-5.90) m/uL Hgb 7.6 L 7.8 L (13.0-17.5) gm/dL Hct 23.8 L 24.6 L (39.0-53.0) % RDW 16.2 H 16.0 H (11.5-15.5) % Plt Count 55 L 67 L (150-450) k/uL Lymphocytes # 0.3 L (1.0-4.8) k/uL Sodium 134 L (137-145) mmol/L Chloride 111 H (98-107) mmol/L BUN 22 H (9-20) mg/dL Calcium 8.0 L (8.4-10.2) mg/dL Phosphorus 2.1 L (2.5-4.5) mg/dL Total Protein 3.8 L (6.3-8.2) g/dL Albumin 1.7 L (3.5-5.0) g/dL Microbiology - Last 24 Hours (Table) 08/16/16 06:49 Urine Culture - Final Urine,Catheterized Klebsiella pneumoniae Assessment and Plan (1) Acute blood loss anemia Narrative/Plan: The patient had developed bleeding per rectum, as well as hematuria. This is felt to be related to his recurrent colorectal cancer, in the left hemipelvis. He has had rectal bleeding before. Previous computed tomography scan, had also shown involvement of the left ureter with this tumor. Case has been discussed with the GI, as well as urology. As the bleeding is most likely related to the known cancer, there doesn't appear to be much scope for any intervention from those specialties. There is likely no scope for significant radiation to that area, and he is already had radiation before in that field. Hemoglobin is more stable, in the 7-8 range, with stoppage of Xarelto. Continue to monitor and transfuse if he falls below 7. Status: Acute (2) Colon cancer Narrative/Plan: The patient has recurrent disease, in the left pelvis as noted above. Tolerance of treatment so far has been very poor. In fact he is not had any chemotherapy for several weeks now, and cancel his appointments in the office the last 2 times. He is quite weak at this time. Based on his symptoms there is significant possibility that the tumor is progressing. I will check a computed tomography scan of the abdomen and pelvis, as well as a CEA. We will be meeting with the family, on 08/21/16. If there is progression, we will be recommending a comfort care approach. Even without radiologic progression, given his poor performance status and intolerance of treatment, consideration of comfort care would likely still be reasonable. Status: Chronic
[2016-08-19] MEDS: METOPROLOL SUCCINATE (ER) 25 MG TAB.ER.24H PO SCH ×2 (12:52→22:17)
--- NOTE | 2016-08-19 17:46 | P.PN ---
Subjective This is a 66-year-old gentleman that comes in the hospital with complains of dizziness. Patient has a history of colon cancer staged at T3 N1 and with positive lymph nodes. Patient underwent chemotherapy has had some signs of recent recurrence with some spread. Patient does have a history of DVT and the proximal atrial fibrillation. 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 Patient states that he's feeling well at this time Denies having any headaches, blurry vision, nausea, vomiting. Patient's last bowel movement apparently was noted to show bright red blood. pt underwent a computed tomography scan of the abdomen and pelvis which showed a large mass in the left lower quadrant which is a recurrence that is new there is some extension into the left paraspinal region into the psoas muscle and into the left ureter. This was in June 2016 which was On his last cycle of chemotherapy. Patient was noted to have significant symptomatic anemia patient was given a total of 3 units of PRBC. Patient was noted to have significant hematochezia and blood in his urine. Currently denies having any additional complaints. Off note patient does have IVC filter as he was noted to have a left lower extremity DVT and has had recurrent episodes of bleeding. 08/17/16 2 episodes RVR . currently stable No other abnormalities discussed PT denies any additional complaints. 08/18/16 another episode of a fib with rvr on cardizem drip with rate controlled a fib Denies having any additional complaints including chest pain, nausea, vomiting, headaches, blurry vision continues to have hematuria. 08/19/16 arousable, however more drowsy than past evaluations In a fib intermittent episodes of RVR> Objective - Vital Signs Vital signs: Vital Signs Temp 98.0 F 08/19/16 16:00 Pulse 133 H 08/19/16 16:00 Resp 20 08/19/16 16:00 BP 99/63 08/19/16 16:00 Pulse Ox 98 08/19/16 16:00 Intake & Output 08/18/16 08/19/16 08/19/16 18:59 06:59 18:59 Intake Total 338.848 1875.833 1359.5 Output Total 377 3230 1040 Balance 576.417 -1989.167 319.5 Weight 67.9 kg 72.2 kg 72.2 kg Intake: IV 140 1200 1000 0.9 Normal Saline 140 Sodium Chloride 0.9% 1, 1200 1000 000 ml @ 100 mls/hr IV . Q10H [facility] Rx#:[id number] Intake, IV Titration 813.417 40.833 239.5 Amount Diltiazem 125 mg In 163.417 40.833 39.5 Sodium Chloride 0.9% 100 ml @ 10 MG/HR 10 mls/hr IV .[id number] [facility] Rx#: [id number] Magnesium Sulfate-D5w Pmx 200 1 gm In Dextrose/Water 1 100ml.bag @ 100 mls/hr IVPB Q1H [facility] Rx#: [id number] Potassium Chloride 10 meq 200 Lidocaine 2% Inj 10 mg In Sodium Chloride 0.9% 100 ml @ 100 mls/hr IV Q1HR [facility]D Rx#:[id number] Sodium Chloride 0.9% 1, 400 000 ml @ 100 mls/hr IV . Q10H [facility]D Rx#:[id number] cefTRIAXone 1,000 mg In 50 Sodium Chloride 0.9% 50 ml @ 100 mls/hr IVPB Q24HR [facility]D Rx#:[id number] Oral 120 Output: Urine 377 3230 1040 Other: Voiding Method Indwelling Catheter Indwelling Catheter Indwelling Catheter - Constitutional General appearance: Present: no acute distress, thin - EENT Eyes: Present: PERRLA - Neck Neck: Present: normal ROM - Respiratory Respiratory: bilateral: diminished, negative: dullness, rales, rhonchi - Cardiovascular Rhythm: irregularly irregular - Gastrointestinal General gastrointestinal: Present: soft, tenderness. Absent: organomegaly - Neurologic Neurologic: Absent: focal deficits - Musculoskeletal Musculoskeletal: Present: generalized weakness - Labs CBC & Chem 7: 08/19/16 05:08 08/19/16 05:08 Labs: Abnormal Lab Results - Last 24 Hours (Table) 08/19/16 08/19/16 Range/Units 05:08 05:08 RBC 2.66 L (4.30-5.90) m/uL Hgb 7.8 L (13.0-17.5) gm/dL Hct 24.6 L (39.0-53.0) % RDW 16.0 H (11.5-15.5) % Plt Count 67 L (150-450) k/uL Lymphocytes # 0.3 L (1.0-4.8) k/uL Sodium 134 L (137-145) mmol/L Chloride 111 H (98-107) mmol/L BUN 22 H (9-20) mg/dL Calcium 8.0 L (8.4-10.2) mg/dL Phosphorus 2.1 L (2.5-4.5) mg/dL Total Protein 3.8 L (6.3-8.2) g/dL Albumin 1.7 L (3.5-5.0) g/dL Assessment and Plan Plan: #1 acute symptomatic anemia secondary to a a GI and source of bleeding. Patient is on xarelto which could account for a GI source of bleeding however after the Delgado/a genitourinary source of bleeding is unlikely from a anticoagulant this is likely from the cancer spread itself. #2 recurrent colorectal cancer appears to be stage IV currently #3 hematorrhea likely from #2 #4 left-sided hydronephrosis secondary to obstructive uropathy secondary to #2 #5 multiple episodes of venous thromboembolism #6 paroxysmal atrial fibrillation #7 severe protein calorie malnutrition #8 hypertension. #9 dyslipidemia #10 hypomagnesemia #11 hypokalemia Plan continues to have hematuria HB stable for now continue cardizem will add digoxin, if necessary add ammonia level, more drowsy today Again prognosis of this patient is poor will have oncology discuss further goals of care with the patient.discussed with oncology today family meeting to be held likely on sunday. pt is not receptive to the conversation in regards to his goals of care
--- NOTE | 2016-08-19 21:03 | CT ---
EXAMINATION TYPE: CT abdomen pelvis w con DATE OF EXAM: 08/19/2016 8:39 PM COMPARISON: CT abdomen and pelvis June 27, 2016. HISTORY: History of recurrent rectal cancer. Rectal bleeding and hematuria. CT DLP: 835.10 mGycm, Automated Exposure Control for Dose Reduction was Utilized. CONTRAST: CT scan of the abdomen and pelvis is performed with oral and with IV Contrast, patient injected with 100 mL of Omnipaque 300. FINDINGS: LUNG BASES: There are new small to moderate-sized bilateral pleural effusions and associated compress tomasz atelectasis. There is persisting cardiomegaly with partial visualization of right-sided pacemaker leads. LIVER/GB: Liver is somewhat small in size with lobulated peripheral contour, underlying cirrhosis is not excluded, clinical correlation advised. Surrounding ascites is present. Patent portal vein is see n which is not suspiciously dilated. Distended gallbladder is redemonstrated. PANCREAS: No significant abnormality is seen. SPLEEN: Splenomegaly is noted measuring 15.2 cm on long axis on coronal image 53. ADRENALS: No significant abnormality is seen. KIDNEYS: There is absent cortical medullary uptake and excretion from left kidney. There is moderate to severe left-sided hydronephrosis. There is 2 mm nonobstructing calculus centrally in left kidney o n coronal image 48. There is hydroureter up to large left pelvic irregular soft tissue mass with clip s measuring 9.8 x 7.5 cm on axial image 77. Mass measures 9.4 cm in craniocaudal length on coronal im age 31. There is local mass effect including encasement of left external iliac artery and vein and li tonio left ureter. Delgado catheter is seen within decompressed bladder. Air-fluid level is product of c atheterization. BOWEL: Evaluation bowel is suboptimal as patient has very little abdominal fat. Contrast is seen in s lightly prominent stomach and duodenal sweep. There are contrast filled proximal small bowel loops in the upper to mid abdomen. There are some less prominent small bowel loops in the lower abdomen and p mary carmen. Fecal material is seen in nondistended colon. Some scattered pelvic phleboliths are seen. PROSTATE/SEMINAL VESICLES: No gross abnormality seen. LYMPH NODES: No greater than 1cm abdominal or pelvic lymph nodes are appreciated. OSSEOUS STRUCTURES: Slight scoliotic curvature is redemonstrated. Multilevel spurring in the spine is seen. Facet arthropathy lower lumbar levels is noted. OTHER: There is moderate calcified atherosclerotic change of the abdominal aorta extending into pelvi c branch vessels. Infrarenal IVC is stable. There is new severe diffuse soft tissue anasarca and soft tissue swelling throughout visualized abdom en and pelvis. Mild diffuse abdominal ascites is seen. There is mild to moderate ascites in the pelvi s noted. There is scar tissue anteriorly overlying the pelvis. Additional metastatic deposits cannot be exclud ed as they are slightly more nodular, for reference axial image 87. Large scrotal fluid collection or hydroceles are present bilaterally. No bowel containing right ingui nal hernia seen on current study. IMPRESSION: 1. Redemonstration of large left pelvic mass probable adenopathy or peritoneal metastatic deposit at level of surgical clips. This is encasing left ureter causing moderate to severe hydronephrosis and a bsent or delayed cortical medullary uptake and excretion versus opposite right kidney. 2. No bowel obstruction is present currently. 3. New small to moderate-sized bilateral pleural effusions and advanced diffuse soft tissue anasarca consistent with fluid overload state. There is small to borderline moderate amount of abdominal and p elvic ascites. Cannot exclude cirrhosis. Splenomegaly is noted.
[2016-08-20] MEDS: SODIUM CHLORIDE 0.9% 1,000 ML IV SCH ×2 (06:21→17:41)
[2016-08-20 07:01] LABS: Anion Gap 3 mmol/L; Blood Urea Nitrogen 14 mg/dL (9-20); Calcium 7.7 mg/dL (8.4-10.2); Carbon Dioxide 21 mmol/L (22-30); Chloride 113 mmol/L (98-107); Glucose 79 mg/dL (74-99); Magnesium 1.8 mg/dL (1.6-2.3); Non-African American GFR(MDRD) >60 (>60 ml/min/1.73 sqM); Phosphorous 1.8 mg/dL (2.5-4.5); Potassium 3.3 mmol/L (3.5-5.1); Sodium 137 mmol/L (137-145)
[2016-08-20 07:04] LABS: CH 28.7; CHCM 31.6; HDW 3.35; Hypochromasia Slight; MCHC 32.7 g/dL (31.0-37.0); MCV 91.7 fL (80.0-100.0); Mean Platelet Volume 8.9; RBC 2.29 m/uL (4.30-5.90); RDW 15.8 % (11.5-15.5); WBC 2.9 k/uL (3.8-10.6); WBC (Perox) 2.94
[2016-08-20 07:12] LABS: HGB 6.9 gm/dL (13.0-17.5)
[2016-08-20 07:24] LABS: Add Differential Manual Differential
[2016-08-20 07:26] LABS: Manual Review Performed; Nucleated Red Blood Cells 0 /100 WBC (0-0); Total Cells Counted 100
[2016-08-20] MEDS: PANTOPRAZOLE 40 MG/10 ML VIAL IVP SCH ×2 (08:58→22:28)
[2016-08-20] MEDS: METOPROLOL SUCCINATE (ER) 25 MG TAB.ER.24H PO SCH (08:58)
--- NOTE | 2016-08-20 12:52 | P.PN ---
Subjective 5-4-xxgt-[age] male patient who got transferred from [facility] because of profound anemia and ongoing GI bleeding. 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 He is currently under the care of Dr. Kim. In summary, the patient has been initially diagnosed having rectosigmoid cancer in August 2011. He had T3 N1 M0 lesion with a positive lymph nodes. He refused chemotherapy at that time. He subsequently developed recurrent disease in the left inguinal area and that progressively growing in size. He had systemic chemotherapy with FOLFOX and the later part of 2013 and then radiation therapy in early 2014 at [facility]. He apparently had significant intolerance to chemotherapy which resulted into profound weakness and weight loss and neuropathy. Subsequent CAT scan surveillance on September 2049 showed marked improvement in the left inguinal mass. In April 2015, the patient presented with GI bleeding while he was on Xarelto there was being administered 4 a recent diagnosis of left lower extremity DVT. The anticoagulation was stopped and the patient was given IVC filter. The patient was further found to have a recurrence in his cancer around 20 cm from the anal verge and this was identified on a colonoscopy. A PET scan was done in May 2015 and it showed uptake in 2 distinct retroperitoneal and peritoneal areas where 2 masses were seen. Chemotherapy was recommended but refused. He subsequently had a surgical resection attempt in August 2015. At that time the patient has a large left lower quadrant mass arising from the somewhat excited growing into the left lower abdomen and pelvic sidewall. No other involvement was noted. The left colon was resected however there was residual tumor left and the infection itself was incomplete from the abdominal pelvic wall. Tumor was present in the retroperitoneum which was a direct extension of the main mass. At that time he was referred to oncology and he had one cycle of chemotherapy to which she had very poor tolerance and at that point it was considered that the patient may be a good candidate for hospice. Subsequently, he took further chemotherapy with dose reduction and he received a total of 3 cycles. He was again unable to tolerate treatment because of severe diarrhea and weakness and poor appetite. He was switched to Camptosar alone and he received 2 cycles of systemic chemotherapy last cycle being in June 2016. Note that the patient was in the hospital for rectal bleeding approximately a month ago. He presented emergency department with a hemoglobin of 8.6 and subsequently declined down to 7.5. His platelets were above 100. He was admitted and the bleeding was sees spontaneously and no further intervention was done and he was discharged home. A CAT scan of the abdomen and pelvis that was done at that time showed a large mass in the left lower quadrant that was a representation of recurrent tumor. The mass extension was into the left paraspinal region and displacement of the psoas muscles. There was also involvement of the left ureter with obstruction of the left ureter and left- sided hydronephrosis. The patient also was found to have a moderate free fluid within the right scrotal area/hydrocele and he had also cardiomegaly with extensive atherosclerotic vascular changes. The patient was also found to have a dilated gallbladder. During this current admission, the patient was having on and off active bleeding for the past 2 weeks. He was having loose bowel movements that were bloody and the same time the patient was having bloody urine. Note that the patient was back on Xarelto despite his previous episodes of rectal bleeding. This recommendation was done to him by his cylinder devalver. As such she went back on taken his Xarelto. Note that he has an IVC filter in place. He presented with a profoundly low hemoglobin of 4.4. Platelet counts was 84,000. INR is at 1.7 with a PT of 16.6 and a PTT of 26.9. The patient received a unit of packed RBC and his is currently receiving the second unit. He is currently in the intensive care unit. He is hemodynamically stable. No hypotension. No chest pain. No dizziness. The Delgado catheter was inserted and the patient was found to have bloody urine output. Creatinine is at 1.5. Magnesium level is at 0.9 and a calcium level is at 7.0. On 08/17/2016 the patient remains in intensive care unit. A patient got resuscitated IV fluids and packed RBC transfusion and the patient has a hemoglobin of 9.7 this morning. This last hemoglobin has been stable compared to the one done earlier. The patient had 1 melanotic stool yesterday and none since morning. Hemodynamically stable. Still having hematuria. Seen by urology. Seen by oncology. Seen by gastroenterology. No plans for any immediate intervention. 08/18/2016, the patient is still in the intensive care unit. He was kept in ICU as the patient was having episodes of atrial fibrillation with rapid ventricular response. Note that yesterday afternoon the patient was started on Cardizem drip at 5 mg an hour and later this afternoon the dose was increased up to 10 mg an hour. Note that the patient is still having hematuria. No active bright red blood per rectum or GI bleeding was noted. No nausea. No vomiting. The patient is taking minimal amount of clear liquid diet and obviously he is not meeting his caloric requirements. He had significant electrodes imbalance the time of admission which got the place. The potassium level remains low at 3.5 and is being supplemented. The magnesium level is up to 2.0. Phosphorus level is up to 2.8. Morning hemoglobin is at 1.6. I increased his IV fluids to normal saline today to 100 mL an hour. We are still awaiting final recommendations from oncology as far as goals of treatment if the patient is possibly a candidate for any further treatment versus hospice. 08/19/2016, I'm seeing this patient in follow-up. The patient has not had any episodes of GI bleeding. Is having, but hematuria. He had some plugging of his Delgado catheter yesterday. Urology was informed. The Delgado catheter was placed and the patient currently has a 20 coude. The catheter is being irrigated frequently by the nursing staff. Hemoglobin is stable. His atrial fibrillation was under better control and the Cardizem drip was discontinued. This morning after he woke up his heart rate started getting tachycardic again in the 120 and 130 and the Cardizem drip had to be restarted at 5 mg an hour. Oncology is meeting with the family and the patient after repeating the CAT scan of the abdomen and pelvis today to reassess the extent of malignancy. Based on the findings, final recommendations will be done as far as CODE STATUS and does of treatment. Patient is comfortable. The patient is eating only 20% of his clear liquid diet and I think we should be able to advance his diet today. On 08/20/2016, the patient is stable. I was told it on and off he is getting confused. His hematuria has recovered. He hasn't had any melanotic stool. He is still atrial fibrillation on Cardizem drip at 5 mg an hour. His hemoglobin is up to 6.9. A CAT scan of the abdomen and pelvis was done and showed again a large left pelvic mass with adenopathy and peritoneal metastases and there is also a new small to moderate sized pleural effusions bilaterally and diffuse anasarca consistent with fluid overload and addition to small to borderline amount of abdominal fluid and pelvic ascites and splenomegaly. Infrarenal IVC was stable. The tumor was encasing the left ureter causing moderate to severe hydronephrosis. Objective - Vital Signs Vital signs: Vital Signs Temp 97.8 F 08/20/16 11:55 Pulse 104 H 08/20/16 11:55 Resp 18 08/20/16 11:55 BP 113/69 08/20/16 11:55 Pulse Ox 99 08/20/16 11:55 Intake & Output 08/19/16 08/20/16 08/20/16 18:59 06:59 18:59 Intake Total 1359.5 840 Output Total 1040 900 Balance 319.5 -60 Weight 72.2 kg 74 kg Intake: IV 1000 840 Diltiazem 125 mg In 40 Sodium Chloride 0.9% 100 ml @ 10 MG/HR 10 mls/hr IV .[id number] FORD Rx#: [id number] Sodium Chloride 0.9% 1, 1000 800 000 ml @ 100 mls/hr IV . Q10H FORD Rx#:[id number] Intake, IV Titration 239.5 Amount Diltiazem 125 mg In 39.5 Sodium Chloride 0.9% 100 ml @ 10 MG/HR 10 mls/hr IV .[id number] FORD Rx#: [id number] Magnesium Sulfate-D5w Pmx 200 1 gm In Dextrose/Water 1 100ml.bag @ 100 mls/hr IVPB Q1H FORD Rx#: [id number] Oral 120 Output: Urine 1040 900 Other: Voiding Method Indwelling Catheter Indwelling Catheter Indwelling Catheter - Exam Thank you cachectic male patient, nonacute distress. He looks pale.Head exam was generally normal. There was no scleral icterus or corneal arcus. Mucous membranes were moist.Neck was supple and without jugular venous distension, thyromegaly, or carotid bruits. Carotids were easily palpable bilaterally. There was no adenopathy. Mucous membranes are dry and the patient is conjunctival pallor.Lungs were clear to auscultation and percussion, and with normal diaphragmatic excursion. No wheezes or rales were noted. The patient has a Mediport on the right chest and the pacemaker on the left chest.Cardiac exam revealed the PMI to be normally situated and sized. The rhythm was regular and no extrasystoles were noted during several minutes of auscultation. The first and second heart sounds were normal and physiologic splitting of the second heart sound was noted. There were no murmurs, rubs, clicks, or gallops. Abdomen is showing scars of previous abdominal surgery over that the abdominal wall. No direct tenderness. No rebound tenderness. No guarding. Extremities are showing. No edema. No cyanosis or clubbing at this point. - Labs CBC & Chem 7: 08/20/16 06:14 08/20/16 06:14 Labs: Abnormal Lab Results - Last 24 Hours (Table) 08/20/16 08/20/16 08/20/16 Range/Units 06:14 06:14 07:58 WBC 2.9 L (3.8-10.6) k/uL RBC 2.29 L (4.30-5.90) m/uL Hgb 6.9 L* (13.0-17.5) gm/dL Hct 21.0 L (39.0-53.0) % RDW 15.8 H (11.5-15.5) % Plt Count 60 L (150-450) k/uL Lymphocytes # (Manual) 0.3 L (1.0-4.8) k/uL Potassium 3.3 L (3.5-5.1) mmol/L Chloride 113 H (98-107) mmol/L Carbon Dioxide 21 L (22-30) mmol/L Calcium 7.7 L (8.4-10.2) mg/dL Phosphorus 1.8 L (2.5-4.5) mg/dL Crossmatch See Detail Assessment and Plan Plan: Assessment 1 profound anemia secondary to ongoing GI bleed. Incentive the patient had blood loss from hematuria and he presented with a hemoglobin of 4.5. Furthermore, the patient has been taking Xarelto as an anticoagulant which contributed and facilitated that his bleeding. The patient is currently being transfused with packed RBC. Hemodynamically stable. On 08/18/2016, the patient shows no active GI bleeding. The patient is off Xarelto. She will been stable at 7.6. On and off the patient is having episodes of atrial fibrillation with rapid ventricular response and for that reason the patient is being titrated with Cardizem drip rates being adjusted based on the patient's heart rate and blood pressure. On 08/19/2016, we have not witnessed any active GI bleeding. The patient remains of Xarelto. Today's hemoglobin is at 7.8 On 08/20/2016, the patient remains off Xarelto. He has not shown any signs of GI bleeding and the hematuria is also recovered. Meanwhile his hemoglobin is down to 6.9. He will need a unit of packed RBC transfusion. 2 recurrent colorectal cancer with a large left lower quadrant mass extending to the psoas muscles and posteriorly to the paraspinal area and invading into the left urinary system causing mass effect on the ureter and obstructive uropathy and hydronephrosis. The follow-up CAT scan of the abdomen and pelvis was done on 08/20/2016 and the findings were noted. 3 hematuria secondary to above, the patient is still having active hematuria. The Delgado catheter was constantly being flushed and a 20 coude was inserted. No passage of any blood clots On 08/20/2016 is no active hematuria and this has subsided 4 acute kidney injury, improved. The patient has obstructive uropathy and hydronephrosis in his left kidney secondary to the pelvic mass/recurrent colorectal tumor. 5 obstructive uropathy secondary to above 6 recurrent bouts of GI bleed secondary to above 7 DVT with IVC filter placement 8 pacemaker insertion 9 hyperlipidemia 10 hypertension 11 cachexia with ongoing weight loss 12 paroxysmal atrial fibrillation him a currently on a Cardizem drip for rate control 13 massive electrode imbalance with hypomagnesemia and hypokalemia. The electrodes have been noted placed Plan We will increase the metoprolol to 50 mg by mouth twice a day and wean off the Cardizem drip and discontinue if the heart rate remained less than 100. Will need a unit of packed RBC transfusion. Awaiting final recommendations by oncology in terms of goals of treatment. Consider hospice.
[2016-08-20] MEDS: DILTIAZEM 125 MG in SODIUM CHLORIDE 0.9% 100 ML IV SCH ×2 (17:40→22:29)
--- NOTE | 2016-08-20 19:15 | P.PN ---
Subjective This is a 66-year-old gentleman that comes in the hospital with complains of dizziness. Patient has a history of colon cancer staged at T3 N1 and with positive lymph nodes. Patient underwent chemotherapy has had some signs of recent recurrence with some spread. Patient does have a history of DVT and the proximal atrial fibrillation. Due to the history of rectal bleeding patient was taken off anticoagulation in the past however patient was restarted on anticoagulation by his logging rafter laborer 2 weeks ago. Patient states that he's feeling well at this time Denies having any headaches, blurry vision, nausea, vomiting. Patient's last bowel movement apparently was noted to show bright red blood. pt underwent a computed tomography scan of the abdomen and pelvis which showed a large mass in the left lower quadrant which is a recurrence that is new there is some extension into the left paraspinal region into the psoas muscle and into the left ureter. This was in June 2016 which was On his last cycle of chemotherapy. Patient was noted to have significant symptomatic anemia patient was given a total of 3 units of PRBC. Patient was noted to have significant hematochezia and blood in his urine. Currently denies having any additional complaints. Off note patient does have IVC filter as he was noted to have a left lower extremity DVT and has had recurrent episodes of bleeding. 08/17/16 2 episodes RVR . currently stable No other abnormalities discussed PT denies any additional complaints. 08/18/16 another episode of a fib with rvr on cardizem drip with rate controlled a fib Denies having any additional complaints including chest pain, nausea, vomiting, headaches, blurry vision continues to have hematuria. 08/19/16 arousable, however more drowsy than past evaluations In a fib intermittent episodes of RVR> 08/20/ awake, answering questions appropriately did discuss his prognosis. pt wanted his to hear thwe conversation denies having cp, nausea, vomiting, or diarrhea Objective - Vital Signs Vital signs: Vital Signs Temp 98.6 F 08/20/16 18:50 Pulse 76 08/20/16 18:50 Resp 18 08/20/16 18:50 BP 117/61 08/20/16 18:50 Pulse Ox 97 08/20/16 18:50 Intake & Output 08/20/16 08/20/16 08/21/16 06:59 18:59 06:59 Intake Total 840 121.083 310 Output Total 900 350 Balance -60 -228.917 310 Weight 74 kg Intake: IV 840 Diltiazem 125 mg In 40 Sodium Chloride 0.9% 100 ml @ 10 MG/HR 10 mls/hr IV .[id number] FORD Rx#: [id number] Sodium Chloride 0.9% 1, 800 000 ml @ 100 mls/hr IV . Q10H FORD Rx#:[id number] Intake, IV Titration 121.083 Amount Diltiazem 125 mg In 121.083 Sodium Chloride 0.9% 100 ml @ 10 MG/HR 10 mls/hr IV .[id number] FORD Rx#: [id number] Blood Product 0 310 Rc As-1 Unit 0 310 [id number] Output: Urine 900 350 Other: Voiding Method Indwelling Catheter Indwelling Catheter - Constitutional General appearance: Present: no acute distress - EENT Eyes: Present: EOMI, PERRLA - Neck Neck: Present: normal ROM - Respiratory Respiratory: bilateral: CTA, negative: dullness, rales, rhonchi - Cardiovascular Rhythm: irregularly irregular Abnormal Heart Sounds: Absent: systolic murmur - Gastrointestinal General gastrointestinal: Present: soft. Absent: organomegaly, tenderness - Genitourinary Genitourinary Comment(s): barrios in place straw colored urine - Neurologic Neurologic: Present: CNII-XII intact. Absent: focal deficits - Musculoskeletal Musculoskeletal: Present: generalized weakness - Psychiatric Psychiatric: Present: A&O x's 3, appropriate affect - Labs CBC & Chem 7: 08/20/16 06:14 08/20/16 06:14 Labs: Abnormal Lab Results - Last 24 Hours (Table) 08/20/16 08/20/16 08/20/16 Range/Units 06:14 06:14 07:58 WBC 2.9 L (3.8-10.6) k/uL RBC 2.29 L (4.30-5.90) m/uL Hgb 6.9 L* (13.0-17.5) gm/dL Hct 21.0 L (39.0-53.0) % RDW 15.8 H (11.5-15.5) % Plt Count 60 L (150-450) k/uL Lymphocytes # (Manual) 0.3 L (1.0-4.8) k/uL Potassium 3.3 L (3.5-5.1) mmol/L Chloride 113 H (98-107) mmol/L Carbon Dioxide 21 L (22-30) mmol/L Calcium 7.7 L (8.4-10.2) mg/dL Phosphorus 1.8 L (2.5-4.5) mg/dL Carcinoembryonic Ag 35.4 H (0.0-5.0) ng/mL Crossmatch See Detail Assessment and Plan Plan: #1 acute symptomatic anemia secondary to a a GI and source of bleeding. Patient is on xarelto which could account for a GI source of bleeding however after the Barrios/a genitourinary source of bleeding is unlikely from a anticoagulant this is likely from the cancer spread itself. #2 recurrent colorectal cancer appears to be stage IV currently #3 hematorrhea likely from #2 #4 left-sided hydronephrosis secondary to obstructive uropathy secondary to #2 #5 multiple episodes of venous thromboembolism #6 paroxysmal atrial fibrillation #7 severe protein calorie malnutrition #8 hypertension. #9 dyslipidemia #10 hypomagnesemia #11 hypokalemia Plan hb noted asymptomatic trend hb level kelley in the am HR control digoxin level in the am did discuss extensively with family and patient regarding options of hospice and comfort measures will need to continue the conversation kelley, oncology to head the discussion family does verbalize to understand his prognosis.
[2016-08-20] MEDS: ALPRAZolam 0.5 MG TAB PO PRN (22:28)
[2016-08-20] MEDS: METOPROLOL SUCCINATE (ER) 50 MG TAB.ER.24H PO SCH (22:28)
[2016-08-20] MEDS: HYDROmorphone 1 MG/ML 1 ML SYRINGE IVP PRN (22:29)
[2016-08-21] MEDS: SODIUM CHLORIDE 0.9% 1,000 ML IV SCH ×2 (06:50→12:40)
[2016-08-21 07:31] LABS: Aty Lym Flag Slight; CH 28.9; CHCM 31.4; HDW 3.77; HGB 8.2 gm/dL (13.0-17.5); Hypochromasia Moderate; MCH 29.5 pg (25.0-35.0); MCHC 31.7 g/dL (31.0-37.0); MCV 92.8 fL (80.0-100.0); Mean Platelet Volume 8.7; Poikilocytosis Slight; RDW 15.6 % (11.5-15.5); WBC 3.9 k/uL (3.8-10.6); WBC (Perox) 3.97
[2016-08-21 07:59] LABS: ALT 30 U/L (21-72); AST 20 U/L (17-59); Alkaline Phosphatase 62 U/L (38-126); Anion Gap 4 mmol/L; Blood Urea Nitrogen 11 mg/dL (9-20); Calcium 7.4 mg/dL (8.4-10.2); Carbon Dioxide 21 mmol/L (22-30); Chloride 114 mmol/L (98-107); Glucose 74 mg/dL (74-99); Magnesium 1.6 mg/dL (1.6-2.3); Non-African American GFR(MDRD) >60 (>60 ml/min/1.73 sqM); Potassium 3.3 mmol/L (3.5-5.1); Sodium 139 mmol/L (137-145); Total Bilirubin 0.7 mg/dL (0.2-1.3); Total Protein 3.7 g/dL (6.3-8.2)
[2016-08-21] MEDS: oxyCODONE-APAP 10-325MG 1 EACH TAB PO PRN ×2 (08:44→13:08)
[2016-08-21 08:45] LABS: Add Differential Manual Differential
[2016-08-21] MEDS: METOPROLOL SUCCINATE (ER) 50 MG TAB.ER.24H PO SCH ×2 (08:46→21:44)
[2016-08-21] MEDS: PANTOPRAZOLE 40 MG/10 ML VIAL IVP SCH ×2 (08:46→21:45)
[2016-08-21 08:47] LABS: Nucleated Red Blood Cells 0 /100 WBC (0-0); Total Cells Counted 100
[2016-08-21 08:48] LABS: Manual Review Performed; Toxic Granulation Present
--- NOTE | 2016-08-21 10:54 | P.PN ---
Subjective Principal diagnosis: symptomatic acute blood loss anemia Pt seen today in follow up, he states that he is being "tricked" this AM, he was unable to clearly answer for me what his concerns were, he denied nausea, SOB or pain. Objective - Vital Signs Vital signs: Vital Signs Temp 97.2 F L 08/21/16 08:20 Pulse 85 08/21/16 08:20 Resp 18 08/21/16 08:20 BP 103/66 08/21/16 08:20 Pulse Ox 93 L 08/21/16 08:45 Intake & Output 08/20/16 08/21/16 08/21/16 18:59 06:59 18:59 Intake Total 161.908 7910.083 240 Output Total 350 Balance -806.937 0490.083 240 Intake: IV 840 Diltiazem 125 mg In 40 Sodium Chloride 0.9% 100 ml @ 10 MG/HR 10 mls/hr IV .[id number] [facility] Rx#: [id number] Sodium Chloride 0.9% 1, 800 000 ml @ 100 mls/hr IV . Q10H [facility]D Rx#:[id number] Intake, IV Titration 121.083 24.083 Amount Diltiazem 125 mg In 121.083 24.083 Sodium Chloride 0.9% 100 ml @ 10 MG/HR 10 mls/hr IV .[id number] [facility]D Rx#: [id number] Oral 240 Blood Product 0 310 Rc As-1 Unit 0 310 [id number] Output: Urine 350 Other: Voiding Method Indwelling Catheter Indwelling Catheter Indwelling Catheter - Constitutional Constitutional Comment(s): frail, cachexia General appearance: Present: no acute distress, thin - Respiratory Respiratory: bilateral: diminished - Cardiovascular Heart sounds: normal: S1, S2 - Peripheral edema leg Peripheral Edema: right: 2+, left: 3+ - Gastrointestinal General gastrointestinal: Present: distended - Psychiatric Psychiatric Comment(s): calm, oriented to self and place - Labs CBC & Chem 7: 08/21/16 06:57 08/21/16 06:57 Labs: Abnormal Lab Results - Last 24 Hours (Table) 08/20/16 08/20/16 08/21/16 Range/Units 06:14 07:58 06:57 RBC 2.80 L (4.30-5.90) m/uL Hgb 8.2 L (13.0-17.5) gm/dL Hct 26.0 L (39.0-53.0) % RDW 15.6 H (11.5-15.5) % Plt Count 71 L (150-450) k/uL Lymphocytes # (Manual) 0.4 L (1.0-4.8) k/uL Potassium 3.3 L (3.5-5.1) mmol/L Chloride 113 H (98-107) mmol/L Carbon Dioxide 21 L (22-30) mmol/L Calcium 7.7 L (8.4-10.2) mg/dL Phosphorus 1.8 L (2.5-4.5) mg/dL Total Protein (6.3-8.2) g/dL Albumin (3.5-5.0) g/dL Carcinoembryonic Ag 35.4 H (0.0-5.0) ng/mL Crossmatch See Detail 08/21/16 Range/Units 06:57 RBC (4.30-5.90) m/uL Hgb (13.0-17.5) gm/dL Hct (39.0-53.0) % RDW (11.5-15.5) % Plt Count (150-450) k/uL Lymphocytes # (Manual) (1.0-4.8) k/uL Potassium 3.3 L (3.5-5.1) mmol/L Chloride 114 H (98-107) mmol/L Carbon Dioxide 21 L (22-30) mmol/L Calcium 7.4 L (8.4-10.2) mg/dL Phosphorus 2.0 L (2.5-4.5) mg/dL Total Protein 3.7 L (6.3-8.2) g/dL Albumin 1.6 L (3.5-5.0) g/dL Carcinoembryonic Ag (0.0-5.0) ng/mL Crossmatch Assessment and Plan (1) Anemia Narrative/Plan: stable, acute hematuria and hematochezia have slowed down significantly Status: Acute (2) Colon cancer Narrative/Plan: Discussed with family CT scan findings indicate progression of disease. We reviewed family expectations: pt is not a candidate for further treatment due to poor performance status, he has not tolerated other therapies well so to consider treatment would be inappropriate and there is disease progression which has complicated pt situation. We discussed that transfusions are only a temporary fix and will not correct the underlying problem, which is malignancy. Pt has poor prognosis and the family seems to be aware of this. Recommendation was for hospice care at facility, not in the home. I answered all of their questions to the best of my ability. They had other questions that were more appropriate for Social Work so Social Work consulted, case discussed with them. Family has numerous other children to talk with so they anticipate decisions will be made in the next day or so. Status: Chronic (3) GI bleed Narrative/Plan: Stable CBC today, no intervention Status: Acute Plan: Cont current management of pt per Attending and Consulting Physicians
[2016-08-21] MEDS: DILTIAZEM 125 MG in SODIUM CHLORIDE 0.9% 100 ML IV SCH ×2 (12:40→22:00)
[2016-08-21] MEDS: ALPRAZolam 0.5 MG TAB PO PRN (13:07)
--- NOTE | 2016-08-21 13:31 | P.PN ---
Subjective Principal diagnosis: Recurrent colorectal cancer with large left quadrant mass and obstructive uropathy and hydronephrosis. As well as ongoing GI bleeding and profound anemia. [id number] male patient who got transferred from [facility] because of profound anemia and ongoing GI bleeding. 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 He is currently under the care of Dr. Kim. In summary, the patient has been initially diagnosed having rectosigmoid cancer in August 2011. He had T3 N1 M0 lesion with a positive lymph nodes. He refused chemotherapy at that time. He subsequently developed recurrent disease in the left inguinal area and that progressively growing in size. He had systemic chemotherapy with FOLFOX and the later part of 2013 and then radiation therapy in early 2014 at [facility]. He apparently had significant intolerance to chemotherapy which resulted into profound weakness and weight loss and neuropathy. Subsequent CAT scan surveillance on September 2049 showed marked improvement in the left inguinal mass. In April 2015, the patient presented with GI bleeding while he was on Xarelto there was being administered 4 a recent diagnosis of left lower extremity DVT. The anticoagulation was stopped and the patient was given IVC filter. The patient was further found to have a recurrence in his cancer around 20 cm from the anal verge and this was identified on a colonoscopy. A PET scan was done in May 2015 and it showed uptake in 2 distinct retroperitoneal and peritoneal areas where 2 masses were seen. Chemotherapy was recommended but refused. He subsequently had a surgical resection attempt in August 2015. At that time the patient has a large left lower quadrant mass arising from the somewhat excited growing into the left lower abdomen and pelvic sidewall. No other involvement was noted. The left colon was resected however there was residual tumor left and the infection itself was incomplete from the abdominal pelvic wall. Tumor was present in the retroperitoneum which was a direct extension of the main mass. At that time he was referred to oncology and he had one cycle of chemotherapy to which she had very poor tolerance and at that point it was considered that the patient may be a good candidate for hospice. Subsequently, he took further chemotherapy with dose reduction and he received a total of 3 cycles. He was again unable to tolerate treatment because of severe diarrhea and weakness and poor appetite. He was switched to Camptosar alone and he received 2 cycles of systemic chemotherapy last cycle being in June 2016. Note that the patient was in the hospital for rectal bleeding approximately a month ago. He presented emergency department with a hemoglobin of 8.6 and subsequently declined down to 7.5. His platelets were above 100. He was admitted and the bleeding was sees spontaneously and no further intervention was done and he was discharged home. A CAT scan of the abdomen and pelvis that was done at that time showed a large mass in the left lower quadrant that was a representation of recurrent tumor. The mass extension was into the left paraspinal region and displacement of the psoas muscles. There was also involvement of the left ureter with obstruction of the left ureter and left- sided hydronephrosis. The patient also was found to have a moderate free fluid within the right scrotal area/hydrocele and he had also cardiomegaly with extensive atherosclerotic vascular changes. The patient was also found to have a dilated gallbladder. During this current admission, the patient was having on and off active bleeding for the past 2 weeks. He was having loose bowel movements that were bloody and the same time the patient was having bloody urine. Note that the patient was back on Xarelto despite his previous episodes of rectal bleeding. This recommendation was done to him by his bleach packer. As such she went back on taken his Xarelto. Note that he has an IVC filter in place. He presented with a profoundly low hemoglobin of 4.4. Platelet counts was 84,000. INR is at 1.7 with a PT of 16.6 and a PTT of 26.9. The patient received a unit of packed RBC and his is currently receiving the second unit. He is currently in the intensive care unit. He is hemodynamically stable. No hypotension. No chest pain. No dizziness. The Delgado catheter was inserted and the patient was found to have bloody urine output. Creatinine is at 1.5. Magnesium level is at 0.9 and a calcium level is at 7.0. On 08/17/2016 the patient remains in intensive care unit. A patient got resuscitated IV fluids and packed RBC transfusion and the patient has a hemoglobin of 9.7 this morning. This last hemoglobin has been stable compared to the one done earlier. The patient had 1 melanotic stool yesterday and none since morning. Hemodynamically stable. Still having hematuria. Seen by urology. Seen by oncology. Seen by gastroenterology. No plans for any immediate intervention. 08/18/2016, the patient is still in the intensive care unit. He was kept in ICU as the patient was having episodes of atrial fibrillation with rapid ventricular response. Note that yesterday afternoon the patient was started on Cardizem drip at 5 mg an hour and later this afternoon the dose was increased up to 10 mg an hour. Note that the patient is still having hematuria. No active bright red blood per rectum or GI bleeding was noted. No nausea. No vomiting. The patient is taking minimal amount of clear liquid diet and obviously he is not meeting his caloric requirements. He had significant electrodes imbalance the time of admission which got the place. The potassium level remains low at 3.5 and is being supplemented. The magnesium level is up to 2.0. Phosphorus level is up to 2.8. Morning hemoglobin is at 1.6. I increased his IV fluids to normal saline today to 100 mL an hour. We are still awaiting final recommendations from oncology as far as goals of treatment if the patient is possibly a candidate for any further treatment versus hospice. 08/19/2016, I'm seeing this patient in follow-up. The patient has not had any episodes of GI bleeding. Is having, but hematuria. He had some plugging of his Delgado catheter yesterday. Urology was informed. The Delgado catheter was placed and the patient currently has a 20 coude. The catheter is being irrigated frequently by the nursing staff. Hemoglobin is stable. His atrial fibrillation was under better control and the Cardizem drip was discontinued. This morning after he woke up his heart rate started getting tachycardic again in the 120 and 130 and the Cardizem drip had to be restarted at 5 mg an hour. Oncology is meeting with the family and the patient after repeating the CAT scan of the abdomen and pelvis today to reassess the extent of malignancy. Based on the findings, final recommendations will be done as far as CODE STATUS and does of treatment. Patient is comfortable. The patient is eating only 20% of his clear liquid diet and I think we should be able to advance his diet today. On 08/21/2016, patient is basically about the same, discharge planning is in progress today for possible hospice and comfort care measures. His overall clinical status is very poor, I had a brief discussion with the family at bedside, they are all aware of his condition, and plans for hospice at home is in progress. Labs were reviewed hemoglobin is 8.2 today. Potassium is 3.3, carcinoembryonic antigen is 35. Objective - Vital Signs Vital signs: Vital Signs Temp 97.2 F L 08/21/16 08:20 Pulse 83 08/21/16 10:45 Resp 16 08/21/16 10:45 BP 107/72 08/21/16 10:45 Pulse Ox 95 08/21/16 10:45 Intake & Output 08/20/16 08/21/16 08/21/16 18:59 06:59 18:59 Intake Total 723.707 4017.083 240 Output Total 350 700 Balance -763.805 2495.083 -460 Weight 77 kg Intake: IV 840 Diltiazem 125 mg In 40 Sodium Chloride 0.9% 100 ml @ 10 MG/HR 10 mls/hr IV .[id number] FORD Rx#: [id number] Sodium Chloride 0.9% 1, 800 000 ml @ 100 mls/hr IV . Q10H FORD Rx#:[id number] Intake, IV Titration 121.083 24.083 Amount Diltiazem 125 mg In 121.083 24.083 Sodium Chloride 0.9% 100 ml @ 10 MG/HR 10 mls/hr IV .[id number] FORD Rx#: [id number] Oral 240 Blood Product 0 310 Rc As-1 Unit 0 310 [id number] Output: Urine 350 700 Other: Voiding Method Indwelling Catheter Indwelling Catheter Indwelling Catheter - Exam cachectic male patient, nonacute distress. He looks pale.Head exam was generally normal. There was no scleral icterus or corneal arcus. Mucous membranes were moist.Neck was supple and without jugular venous distension, thyromegaly, or carotid bruits. Carotids were easily palpable bilaterally. There was no adenopathy. Mucous membranes are dry and the patient is conjunctival pallor.Lungs were clear to auscultation and percussion, and with normal diaphragmatic excursion. No wheezes or rales were noted. The patient has a Mediport on the right chest and the pacemaker on the left chest.Cardiac exam revealed the PMI to be normally situated and sized. The rhythm was regular and no extrasystoles were noted during several minutes of auscultation. The first and second heart sounds were normal and physiologic splitting of the second heart sound was noted. There were no murmurs, rubs, clicks, or gallops. Abdomen is showing scars of previous abdominal surgery over that the abdominal wall. No direct tenderness. No rebound tenderness. No guarding. Extremities are showing. No edema. No cyanosis or clubbing at this point. - Labs CBC & Chem 7: 08/21/16 06:57 08/21/16 06:57 Labs: Abnormal Lab Results - Last 24 Hours (Table) 08/20/16 08/20/16 08/21/16 Range/Units 06:14 07:58 06:57 RBC 2.80 L (4.30-5.90) m/uL Hgb 8.2 L (13.0-17.5) gm/dL Hct 26.0 L (39.0-53.0) % RDW 15.6 H (11.5-15.5) % Plt Count 71 L (150-450) k/uL Lymphocytes # (Manual) 0.4 L (1.0-4.8) k/uL Potassium 3.3 L (3.5-5.1) mmol/L Chloride 113 H (98-107) mmol/L Carbon Dioxide 21 L (22-30) mmol/L Calcium 7.7 L (8.4-10.2) mg/dL Phosphorus 1.8 L (2.5-4.5) mg/dL Total Protein (6.3-8.2) g/dL Albumin (3.5-5.0) g/dL Carcinoembryonic Ag 35.4 H (0.0-5.0) ng/mL Crossmatch See Detail 08/21/16 Range/Units 06:57 RBC (4.30-5.90) m/uL Hgb (13.0-17.5) gm/dL Hct (39.0-53.0) % RDW (11.5-15.5) % Plt Count (150-450) k/uL Lymphocytes # (Manual) (1.0-4.8) k/uL Potassium 3.3 L (3.5-5.1) mmol/L Chloride 114 H (98-107) mmol/L Carbon Dioxide 21 L (22-30) mmol/L Calcium 7.4 L (8.4-10.2) mg/dL Phosphorus 2.0 L (2.5-4.5) mg/dL Total Protein 3.7 L (6.3-8.2) g/dL Albumin 1.6 L (3.5-5.0) g/dL Carcinoembryonic Ag (0.0-5.0) ng/mL Crossmatch Assessment and Plan Plan: 1 profound anemia secondary to ongoing GI bleed. Incentive the patient had blood loss from hematuria and he presented with a hemoglobin of 4.5. Furthermore, the patient has been taking Xarelto as an anticoagulant which contributed and facilitated that his bleeding. The patient is currently being transfused with packed RBC. Hemodynamically stable. On 08/18/2016, the patient shows no active GI bleeding. The patient is off Xarelto. She will been stable at 7.6. On and off the patient is having episodes of atrial fibrillation with rapid ventricular response and for that reason the patient is being titrated with Cardizem drip rates being adjusted based on the patient's heart rate and blood pressure. On 08/19/2016, we have not witnessed any active GI bleeding. The patient remains of Xarelto. Today's hemoglobin is at 7.8 On 08/20/2016, the patient remains off Xarelto. He has not shown any signs of GI bleeding and the hematuria is also recovered. Meanwhile his hemoglobin is down to 6.9. He will need a unit of packed RBC transfusion. 2 recurrent colorectal cancer with a large left lower quadrant mass extending to the psoas muscles and posteriorly to the paraspinal area and invading into the left urinary system causing mass effect on the ureter and obstructive uropathy and hydronephrosis. The follow-up CAT scan of the abdomen and pelvis was done on 08/20/2016 and the findings were noted. 3 hematuria secondary to above, the patient is still having active hematuria. The Delgado catheter was constantly being flushed and a 20 coude was inserted. No passage of any blood clots On 08/20/2016 is no active hematuria and this has subsided 4 acute kidney injury, improved. The patient has obstructive uropathy and hydronephrosis in his left kidney secondary to the pelvic mass/recurrent colorectal tumor. 5 obstructive uropathy secondary to above 6 recurrent bouts of GI bleed secondary to above 7 DVT with IVC filter placement 8 pacemaker insertion 9 hyperlipidemia 10 hypertension 11 cachexia with ongoing weight loss 12 paroxysmal atrial fibrillation him a currently on a Cardizem drip for rate control 13 massive electrode imbalance with hypomagnesemia and hypokalemia. The electrodes have been noted placed Recommendation: Agree with discharge planning for comfort care measures and home hospice. We will sign off and see on when necessary basis, discussed his condition with family at bedside. Time with Patient: Less than 30
--- NOTE | 2016-08-21 19:07 | P.PN ---
Subjective This is a 66-year-old gentleman that comes in the hospital with complains of dizziness. Patient has a history of colon cancer staged at T3 N1 and with positive lymph nodes. Patient underwent chemotherapy has had some signs of recent recurrence with some spread. Patient does have a history of DVT and the proximal atrial fibrillation. Due to the history of rectal bleeding patient was taken off anticoagulation in the past however patient was restarted on anticoagulation by his drafter tool design 2 weeks ago. Patient states that he's feeling well at this time Denies having any headaches, blurry vision, nausea, vomiting. Patient's last bowel movement apparently was noted to show bright red blood. pt underwent a computed tomography scan of the abdomen and pelvis which showed a large mass in the left lower quadrant which is a recurrence that is new there is some extension into the left paraspinal region into the psoas muscle and into the left ureter. This was in June 2016 which was On his last cycle of chemotherapy. Patient was noted to have significant symptomatic anemia patient was given a total of 3 units of PRBC. Patient was noted to have significant hematochezia and blood in his urine. Currently denies having any additional complaints. Off note patient does have IVC filter as he was noted to have a left lower extremity DVT and has had recurrent episodes of bleeding. 08/17/16 2 episodes RVR . currently stable No other abnormalities discussed PT denies any additional complaints. 08/18/16 another episode of a fib with rvr on cardizem drip with rate controlled a fib Denies having any additional complaints including chest pain, nausea, vomiting, headaches, blurry vision continues to have hematuria. 08/19/16 arousable, however more drowsy than past evaluations In a fib intermittent episodes of RVR> 08/20/ awake, answering questions appropriately did discuss his prognosis. pt wanted his to hear thwe conversation denies having cp, nausea, vomiting, or diarrhea 08/21/16 drowsy today Family meeting was held today Not arousable easily deneis any complaints thereafter Objective - Vital Signs Vital signs: Vital Signs Temp 97.5 F L 08/21/16 15:35 Pulse 85 08/21/16 15:35 Resp 18 08/21/16 15:35 BP 111/60 08/21/16 15:35 Pulse Ox 98 08/21/16 15:35 Intake & Output 05/0108/21/16 08/22/16 06:59 18:59 06:59 Intake Total 1174.083 240 Output Total 700 Balance 1174.083 -460 Weight 77 kg Intake: IV 840 Diltiazem 125 mg In 40 Sodium Chloride 0.9% 100 ml @ 10 MG/HR 10 mls/hr IV .[id number] FORD Rx#: [id number] Sodium Chloride 0.9% 1, 800 000 ml @ 100 mls/hr IV . Q10H FORD Rx#:[id number] Intake, IV Titration 24.083 Amount Diltiazem 125 mg In 24.083 Sodium Chloride 0.9% 100 ml @ 10 MG/HR 10 mls/hr IV .[id number] FORD Rx#: [id number] Oral 240 Blood Product 310 Rc As-1 Unit 310 [id number] Output: Urine 700 Other: Voiding Method Indwelling Catheter Indwelling Catheter - Constitutional General appearance: Present: no acute distress - EENT Eyes: Present: EOMI - Neck Neck: Present: normal ROM - Respiratory Respiratory: bilateral: CTA, negative: dullness, rales, rhonchi, wheezing - Cardiovascular Rhythm: regular Heart sounds: normal: S1, S2 - Gastrointestinal General gastrointestinal: Present: normal bowel sounds, soft. Absent: organomegaly - Musculoskeletal Musculoskeletal: Present: generalized weakness - Psychiatric Psychiatric Comment(s): lethargic. - Labs CBC & Chem 7: 08/21/16 06:57 08/21/16 06:57 Labs: Abnormal Lab Results - Last 24 Hours (Table) 08/20/16 08/21/16 08/21/16 Range/Units 07:58 06:57 06:57 RBC 2.80 L (4.30-5.90) m/uL Hgb 8.2 L (13.0-17.5) gm/dL Hct 26.0 L (39.0-53.0) % RDW 15.6 H (11.5-15.5) % Plt Count 71 L (150-450) k/uL Lymphocytes # (Manual) 0.4 L (1.0-4.8) k/uL Potassium 3.3 L (3.5-5.1) mmol/L Chloride 114 H (98-107) mmol/L Carbon Dioxide 21 L (22-30) mmol/L Calcium 7.4 L (8.4-10.2) mg/dL Phosphorus 2.0 L (2.5-4.5) mg/dL Total Protein 3.7 L (6.3-8.2) g/dL Albumin 1.6 L (3.5-5.0) g/dL Crossmatch See Detail Assessment and Plan Plan: #1 acute symptomatic anemia secondary to a a GI and source of bleeding. Patient is on xarelto which could account for a GI source of bleeding however after the Delgado/a genitourinary source of bleeding is unlikely from a anticoagulant this is likely from the cancer spread itself. #2 recurrent colorectal cancer appears to be stage IV currently #3 hematorrhea likely from #2 #4 left-sided hydronephrosis secondary to obstructive uropathy secondary to #2 #5 multiple episodes of venous thromboembolism #6 paroxysmal atrial fibrillation #7 severe protein calorie malnutrition #8 hypertension. #9 dyslipidemia #10 hypomagnesemia #11 hypokalemia 12. acute toxic encephaloapathy. Plan hb noted asymptomatic trend hb level kelley in the am HR control family meeting was held FUll code hospice was recommended ct results was discussed apparently and progression of disease was informed poor prognosis.
[2016-08-22] MEDS: SODIUM CHLORIDE 0.9% 1,000 ML IV SCH ×3 (04:55→09:17)
[2016-08-22] MEDS: PANTOPRAZOLE 40 MG/10 ML VIAL IVP SCH ×2 (08:07→21:28)
[2016-08-22] MEDS: METOPROLOL SUCCINATE (ER) 50 MG TAB.ER.24H PO SCH (08:07)
[2016-08-22] MEDS: POTASSIUM CHLORIDE ER 20 MEQ TAB.ER PO SCH ×2 (08:17→09:11)
[2016-08-22] MEDS: DILTIAZEM 125 MG in SODIUM CHLORIDE 0.9% 100 ML IV SCH (09:10)
[2016-08-22] MEDS ORDERED: METOPROLOL SUCCINATE (ER) 25 MG TAB.ER.24H PO STA (15:18)
--- NOTE | 2016-08-22 18:39 | P.PN ---
Subjective This is a 66-year-old gentleman that comes in the hospital with complains of dizziness. Patient has a history of colon cancer staged at T3 N1 and with positive lymph nodes. Patient underwent chemotherapy has had some signs of recent recurrence with some spread. Patient does have a history of DVT and the proximal atrial fibrillation. 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 Patient states that he's feeling well at this time Denies having any headaches, blurry vision, nausea, vomiting. Patient's last bowel movement apparently was noted to show bright red blood. pt underwent a computed tomography scan of the abdomen and pelvis which showed a large mass in the left lower quadrant which is a recurrence that is new there is some extension into the left paraspinal region into the psoas muscle and into the left ureter. This was in June 2016 which was On his last cycle of chemotherapy. Patient was noted to have significant symptomatic anemia patient was given a total of 3 units of PRBC. Patient was noted to have significant hematochezia and blood in his urine. Currently denies having any additional complaints. Off note patient does have IVC filter as he was noted to have a left lower extremity DVT and has had recurrent episodes of bleeding. 08/17/16 2 episodes RVR . currently stable No other abnormalities discussed PT denies any additional complaints. 08/18/16 another episode of a fib with rvr on cardizem drip with rate controlled a fib Denies having any additional complaints including chest pain, nausea, vomiting, headaches, blurry vision continues to have hematuria. 08/19/16 arousable, however more drowsy than past evaluations In a fib intermittent episodes of RVR> awake, answering questions appropriately did discuss his prognosis. pt wanted his to hear thwe conversation denies having cp, nausea, vomiting, or diarrhea 08/21/16 drowsy today Family meeting was held today Not arousable easily deneis any complaints thereafter 08/22/16 drowsy again today however was awake all lastnight no additional abnormalities reported. Objective - Vital Signs Vital signs: Vital Signs Temp 96 F L 08/22/16 16:02 Pulse 94 08/22/16 16:02 Resp 18 08/22/16 16:02 BP 120/66 08/22/16 16:02 Pulse Ox 99 08/22/16 16:02 Intake & Output 08/21/16 08/22/16 08/22/16 18:59 06:59 18:59 Intake Total 240 708 760 Output Total 700 800 Balance -460 -92 760 Weight 77 kg 77 kg Intake: IV 708 400 Diltiazem 125 mg In 108 Sodium Chloride 0.9% 100 ml @ 10 MG/HR 10 mls/hr IV .[id number] [facility] Rx#: [id number] Sodium Chloride 0.9% 1, 600 400 000 ml @ 100 mls/hr IV . Q10H [facility] Rx#:[id number] Oral 240 360 Output: Urine 700 800 Other: Voiding Method Indwelling Catheter Indwelling Catheter Indwelling Catheter - Constitutional General appearance: Present: thin - EENT Eyes: Present: PERRLA - Cardiovascular Rhythm: regular Heart sounds: normal: S1, S2 Abnormal Heart Sounds: Absent: systolic murmur - Gastrointestinal General gastrointestinal: Present: normal bowel sounds, soft. Absent: organomegaly - Neurologic Neurologic: Absent: focal deficits - Psychiatric Psychiatric: Absent: A&O x's 3 - Labs CBC & Chem 7: 08/21/16 06:57 08/22/16 10:53 Assessment and Plan Plan: #1 acute symptomatic anemia secondary to a a GI and source of bleeding. Patient is on xarelto which could account for a GI source of bleeding however after the Delgado/a genitourinary source of bleeding is unlikely from a anticoagulant this is likely from the cancer spread itself. #2 recurrent colorectal cancer appears to be stage IV currently #3 hematorrhea likely from #2 #4 left-sided hydronephrosis secondary to obstructive uropathy secondary to #2 #5 multiple episodes of venous thromboembolism #6 paroxysmal atrial fibrillation, rate controlled increase metoprolol 75mg bid. #7 severe protein calorie malnutrition #8 hypertension. #9 dyslipidemia #10 hypomagnesemia #11 hypokalemia 12. acute toxic encephaloapathy. Plan hb noted asymptomatic trend hb level kelley in the am Family apparently wants pt to be discharged to [place], however I did inform that he is not a candidate for rehab. Pt is more lethargic decrease fentanyl Prognosis is poor Some of the family members are not in terms with his prognosis Pt is worsening.
[2016-08-22] MEDS: METOPROLOL SUCCINATE (ER) 25 MG TAB.ER.24H PO SCH (21:28)
[2016-08-22] MEDS: ALPRAZolam 0.5 MG TAB PO PRN (23:06)
[2016-08-23] MEDS: SODIUM CHLORIDE 0.9% 1,000 ML IV SCH ×3 (06:47→12:36)
[2016-08-23 07:13] LABS: ALT 24 U/L (21-72); AST 18 U/L (17-59); Alkaline Phosphatase 85 U/L (38-126); Anion Gap 5 mmol/L; Basophils % (A) 1 %; Blood Urea Nitrogen 8 mg/dL (9-20); CH 29.2; CHCM 31.8; Calcium 7.7 mg/dL (8.4-10.2); Carbon Dioxide 23 mmol/L (22-30); Chloride 113 mmol/L (98-107); Eosinophils % (A) 1 %; Glucose 89 mg/dL (74-99); HCT 28.5 % (39.0-53.0); HDW 3.63; HGB 9.3 gm/dL (13.0-17.5); Hypochromasia Slight; Luc # (Auto) 0.24; Luc % (Auto) 4; Lymphocytes # (A) 0.7 k/uL (1.0-4.8); Lymphocytes % (A) 10 %; MCH 30.2 pg (25.0-35.0); MCHC 32.5 g/dL (31.0-37.0); MCV 92.8 fL (80.0-100.0); Mean Platelet Volume 8.6; Monocytes # (A) 0.4 k/uL (0-1.0); Monocytes % (A) 6 %; Neutrophils # (A) 5.6 k/uL (1.3-7.7); Neutrophils % (A) 79 %; Non-African American GFR(MDRD) >60 (>60 ml/min/1.73 sqM); Poikilocytosis Slight; Potassium 3.7 mmol/L (3.5-5.1); RBC 3.07 m/uL (4.30-5.90); RDW 14.9 % (11.5-15.5); Sodium 141 mmol/L (137-145); Total Bilirubin 0.8 mg/dL (0.2-1.3); Total Protein 4.4 g/dL (6.3-8.2); WBC 7.1 k/uL (3.8-10.6); WBC (Perox) 6.95
[2016-08-23] MEDS: PANTOPRAZOLE 40 MG/10 ML VIAL IVP SCH ×2 (09:54→23:22)
[2016-08-23] MEDS: METOPROLOL SUCCINATE (ER) 25 MG TAB.ER.24H PO SCH ×2 (10:04→23:23)
--- NOTE | 2016-08-23 18:47 | P.PN ---
Subjective This is a 66-year-old gentleman that comes in the hospital with complains of dizziness. Patient has a history of colon cancer staged at T3 N1 and with positive lymph nodes. Patient underwent chemotherapy has had some signs of recent recurrence with some spread. Patient does have a history of DVT and the proximal atrial fibrillation. 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 Patient states that he's feeling well at this time Denies having any headaches, blurry vision, nausea, vomiting. Patient's last bowel movement apparently was noted to show bright red blood. pt underwent a computed tomography scan of the abdomen and pelvis which showed a large mass in the left lower quadrant which is a recurrence that is new there is some extension into the left paraspinal region into the psoas muscle and into the left ureter. This was in June 2016 which was On his last cycle of chemotherapy. Patient was noted to have significant symptomatic anemia patient was given a total of 3 units of PRBC. Patient was noted to have significant hematochezia and blood in his urine. Currently denies having any additional complaints. Off note patient does have IVC filter as he was noted to have a left lower extremity DVT and has had recurrent episodes of bleeding. 08/17/16 2 episodes RVR . currently stable No other abnormalities discussed PT denies any additional complaints. 08/18/16 another episode of a fib with rvr on cardizem drip with rate controlled a fib Denies having any additional complaints including chest pain, nausea, vomiting, headaches, blurry vision continues to have hematuria. 08/19/16 arousable, however more drowsy than past evaluations In a fib intermittent episodes of RVR> 08/20/ awake, answering questions appropriately did discuss his prognosis. pt wanted his to hear thwe conversation denies having cp, nausea, vomiting, or diarrhea 08/21/16 drowsy today Family meeting was held today Not arousable easily deneis any complaints thereafter 08/22/16 drowsy again today however was awake all lastnight no additional abnormalities reported. 08/23/16 arousable but lethrgic Objective - Vital Signs Vital signs: Vital Signs Temp 98.1 F 08/23/16 15:48 Pulse 107 H 08/23/16 15:48 Resp 16 08/23/16 15:48 BP 156/97 08/23/16 15:48 Pulse Ox 100 08/23/16 15:48 Intake & Output 08/22/16 08/23/16 08/23/16 18:59 06:59 18:59 Intake Total 880 1300 800 Output Total 950 500 Balance 880 350 300 Weight 77.5 kg Intake: IV 400 1300 400 Sodium Chloride 0.9% 1, 400 1300 400 000 ml @ 50 mls/hr IV . Q20H [facility] Rx#:[id number] Oral 480 400 Output: Urine 950 500 Other: Voiding Method Indwelling Catheter Indwelling Catheter Indwelling Catheter - Constitutional General appearance: Present: thin - EENT Eyes: Present: EOMI - Neck Neck: Present: normal ROM - Respiratory Respiratory: bilateral: diminished, negative: dullness, rales - Cardiovascular Rhythm: regular Heart sounds: normal: S1, S2 - Gastrointestinal General gastrointestinal: Present: normal bowel sounds, soft. Absent: organomegaly - Neurologic Neurologic: Absent: focal deficits - Musculoskeletal Musculoskeletal: Present: generalized weakness (drowsy) - Labs CBC & Chem 7: 08/23/16 06:27 08/23/16 06:27 Labs: Abnormal Lab Results - Last 24 Hours (Table) 08/23/16 08/23/16 Range/Units 06:27 06:27 RBC 3.07 L (4.30-5.90) m/uL Hgb 9.3 L (13.0-17.5) gm/dL Hct 28.5 L (39.0-53.0) % Plt Count 139 L D (150-450) k/uL Lymphocytes # 0.7 L (1.0-4.8) k/uL Chloride 113 H (98-107) mmol/L BUN 8 L (9-20) mg/dL Creatinine 0.63 L (0.66-1.25) mg/dL Calcium 7.7 L (8.4-10.2) mg/dL Total Protein 4.4 L (6.3-8.2) g/dL Albumin 1.8 L (3.5-5.0) g/dL Assessment and Plan Plan: #1 acute symptomatic anemia secondary to a a GI and source of bleeding. Patient is on xarelto which could account for a GI source of bleeding however after the Delgado/a genitourinary source of bleeding is unlikely from a anticoagulant this is likely from the cancer spread itself. #2 recurrent colorectal cancer appears to be stage IV currently #3 hematorrhea likely from #2 #4 left-sided hydronephrosis secondary to obstructive uropathy secondary to #2 #5 multiple episodes of venous thromboembolism #6 paroxysmal atrial fibrillation, rate controlled increase metoprolol 75mg bid. #7 severe protein calorie malnutrition #8 hypertension. #9 dyslipidemia #10 hypomagnesemia #11 hypokalemia 12. acute toxic encephaloapathy. Plan hb noted asymptomatic trend hb level kelley in the am Family apparently wants pt to be discharged to [place], however I did inform that he is not a candidate for rehab. Pt is more lethargic dc plans for home in the next 24 hrs decrease fentanyl 75mcg Prognosis is poor Some of the family members are not in terms with his prognosis Pt is worsening.
[2016-08-23] MEDS: ALPRAZolam 0.5 MG TAB PO PRN (23:25)
[2016-08-24] MEDS: PANTOPRAZOLE 40 MG/10 ML VIAL IVP SCH (09:25)
[2016-08-24] MEDS: METOPROLOL SUCCINATE (ER) 25 MG TAB.ER.24H PO SCH ×2 (09:27→20:52)
[2016-08-24 09:52] VITALS: BMI 23.3
--- NOTE | 2016-08-24 11:24 | CDI ---
In responding to this query, please exercise your independent professional judgment. The [facility] Coding Staff and Clinical Documentation Specialists appreciate your assistance in clarifying documentation, maintaining compliance with coding guidelines, accurately documenting patients condition and capturing severity of illness. The fact that a question is asked does not imply that any particular answer is desired or expected. Communication forms are a method of clarifying documentation and are not made part of the Legal Health Record. Thank you in advance for your clarification. Last Revision, February 2015 Valery Bettencourt [address] [place] [address] Documentation Clarification Form Date: 08/24/2016 11:08:00 AM From: Colleen Hamilton CCS, CCDS Admit Date: 08/16/2016 4:31:00 AM Patient Name: Piter Fischer Visit Number: [id number] Discharge Date: Dr. 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 Delgado catheter inserted this admission per the documentation by Urologist. Clinical Indicators: Severely anemic on arrival requiring PRBC transfusions. Admission VS: T 97.7, P 73, R 22, BP 81/44, PO 100 ra *Temps as high as 101.7; HR up to 130s, irregular (known paroxysmal A Fib); Resps 22-34-5-16; BP 81/44; PO lowest: 75 LAB: WBC 4.0, RBC 1.45*, Hgb 4.4, Hct 13.5, Plt Ct 84*. UA: RBC >182, WBC > 182 Urine Culture: positive Klebsiella >100,000 Treatment: IV Kcl, IV Mag Sulf, IV Tylenol, IV fluid boluses, Dilaudid, IV Rocephin (started 08/17) Consults: Pulm/Critical Care (ICU mgmt.), Urology, Hem/Onc Please document the condition that these clinical indicators signify, whether Present on Admission, and cause if known: UTI o Due to Sepsis? o If due to catheter, device or implant, please document o Specify organism, if known o Identify location of infection (if known) Bladder, Kidney, Urethra, etc. ? o Pyelonephritis Renal Stone Unable to determine Other Please document in your progress notes and discharge summary in order to capture severity of illness and risk of mortality. Include clinical findings that support your diagnosis. FYI: Press F11 to launch patient chart. Place X here if this finding has no clinical significance, is not applicable or if you are not able to provide any additional documentation. Thank You. JOJO
[2016-08-24] MEDS: PANTOPRAZOLE 40 MG TABLET PO SCH ×2 (12:17→17:25)
--- NOTE | 2016-08-24 15:33 | P.PN ---
Subjective This is a 66-year-old gentleman that comes in the hospital with complains of dizziness. Patient has a history of colon cancer staged at T3 N1 and with positive lymph nodes. Patient underwent chemotherapy has had some signs of recent recurrence with some spread. Patient does have a history of DVT and the proximal atrial fibrillation. 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 Patient states that he's feeling well at this time Denies having any headaches, blurry vision, nausea, vomiting. Patient's last bowel movement apparently was noted to show bright red blood. pt underwent a computed tomography scan of the abdomen and pelvis which showed a large mass in the left lower quadrant which is a recurrence that is new there is some extension into the left paraspinal region into the psoas muscle and into the left ureter. This was in June 2016 which was On his last cycle of chemotherapy. Patient was noted to have significant symptomatic anemia patient was given a total of 3 units of PRBC. Patient was noted to have significant hematochezia and blood in his urine. Currently denies having any additional complaints. Off note patient does have IVC filter as he was noted to have a left lower extremity DVT and has had recurrent episodes of bleeding. 08/17/16 2 episodes RVR . currently stable No other abnormalities discussed PT denies any additional complaints. 08/18/16 another episode of a fib with rvr on cardizem drip with rate controlled a fib Denies having any additional complaints including chest pain, nausea, vomiting, headaches, blurry vision continues to have hematuria. 08/19/16 arousable, however more drowsy than past evaluations In a fib intermittent episodes of RVR> awake, answering questions appropriately did discuss his prognosis. pt wanted his to hear thwe conversation denies having cp, nausea, vomiting, or diarrhea 08/21/16 drowsy today Family meeting was held today Not arousable easily deneis any complaints thereafter 08/22/16 drowsy again today however was awake all lastnight no additional abnormalities reported. 08/23/16 arousable but lethrgic 2016 Patient is arousable denies having any additional complaints continues to help blood in his Delgado catheter Objective - Vital Signs Vital signs: Vital Signs Temp 96.9 F L 08/24/16 12:04 Pulse 105 H 08/24/16 12:04 Resp 16 08/24/16 12:04 BP 161/92 08/24/16 12:04 Pulse Ox 99 08/24/16 12:04 Intake & Output 08/23/16 08/24/16 08/24/16 18:59 06:59 18:59 Intake Total 800 100 Output Total 500 1500 Balance 300 -1500 100 Weight 78 kg 78 kg Intake: IV 400 Sodium Chloride 0.9% 1, 400 000 ml @ 50 mls/hr IV . Q20H [facility] Rx#:[id number] Oral 400 100 Output: Urine 500 1500 Other: Voiding Method Indwelling Catheter Indwelling Catheter Indwelling Catheter - Exam Physical exam Gen. appearance oriented 3 in no distress Neck is supple no JVD Lungs good air entry clear to auscultation no rhonchi or wheezing Heart S1-S2 heard regular rate and rhythm no murmurs appreciated Abdomen is soft nontender no organomegaly bowel sounds are intact Neurologically cranial nerves II-12 grossly intact no focal motor or sensory deficits noted Skin no abnormalities appreciated Blood noted in the Delgado catheter - Labs CBC & Chem 7: 08/23/16 06:27 08/23/16 06:27 Assessment and Plan Plan: #1 acute symptomatic anemia secondary to a a GI and source of bleeding. Patient is on xarelto which could account for a GI source of bleeding however after the Delgado/a genitourinary source of bleeding is unlikely from a anticoagulant this is likely from the cancer spread itself. #2 recurrent colorectal cancer appears to be stage IV currently #3 hematorrhea likely from #2 #4 left-sided hydronephrosis secondary to obstructive uropathy secondary to #2 #5 multiple episodes of venous thromboembolism #6 paroxysmal atrial fibrillation, rate controlled increase metoprolol 75mg bid. #7 severe protein calorie malnutrition #8 hypertension. #9 dyslipidemia #10 hypomagnesemia #11 hypokalemia 12. acute toxic encephaloapathy. Plan Patient apparently was approved for a long-term for rehab. I do not believe that is appropriate as patient is progressively getting worse continues to have bleeding from infiltration of cancer into his ureters. Patient will get readmitted to the hospital, as patient becomes symptomatic I did discuss with this with the family I discussed that patient is at at the last stage of his life this was discussed with the daughter that attempting to rehab him will be counterintuitive. Discussed comfort measures fentanyl 75mcg Prognosis is poor Some of the family members are not in terms with his prognosis Pt is worsening.
[2016-08-25] MEDS: PANTOPRAZOLE 40 MG TABLET PO SCH (07:56)
[2016-08-25] MEDS: METOPROLOL SUCCINATE (ER) 25 MG TAB.ER.24H PO SCH (08:00)
[2016-08-25 16:08] VITALS: BP 159/90; PULSE 105; RESP 18; TEMP 98
--- NOTE | 2016-08-25 16:49 | P.DS ---
Providers Date of admission: 08/16/16 04:31 Attending physician: Tae Valadez Consults: 08/16/16 06:18 Consult Physician Stat Consulting Provider: Miller Cruz Consult Reason/Comments: ICU management Do you want consulting provider notified?: Already Contacted 08/16/16 06:19 Consult Physician Urgent Consulting Provider: Sunny Krueger Consult Reason/Comments: CA management Do you want consulting provider notified?: Yes 08/16/16 15:46 Consult Physician Stat Consulting Provider: Gilberto Reilly Consult Reason/Comments: blood in urine Do you want consulting provider notified?: Yes Primary care physician: [facility] Course: This is a 66-year-old gentleman that comes in the hospital with complains of dizziness. Patient has a history of colon cancer staged at T3 N1 and with positive lymph nodes. Patient underwent chemotherapy has had some signs of recent recurrence with some spread. Patient does have a history of DVT and the proximal atrial fibrillation. 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 Patient states that he's feeling well at this time Denies having any headaches, blurry vision, nausea, vomiting. Patient's last bowel movement apparently was noted to show bright red blood. pt underwent a computed tomography scan of the abdomen and pelvis which showed a large mass in the left lower quadrant which is a recurrence that is new there is some extension into the left paraspinal region into the psoas muscle and into the left ureter. This was in June 2016 which was On his last cycle of chemotherapy. Patient was noted to have significant symptomatic anemia patient was given a total of 3 units of PRBC. Patient was noted to have significant hematochezia and blood in his urine. Currently denies having any additional complaints. Off note patient does have IVC filter as he was noted to have a left lower extremity DVT and has had recurrent episodes of bleeding. 08/17/16 2 episodes RVR . currently stable No other abnormalities discussed PT denies any additional complaints. 08/18/16 another episode of a fib with rvr on cardizem drip with rate controlled a fib Denies having any additional complaints including chest pain, nausea, vomiting, headaches, blurry vision continues to have hematuria. 08/19/16 arousable, however more drowsy than past evaluations In a fib intermittent episodes of RVR> 08/20/176 awake, answering questions appropriately did discuss his prognosis. pt wanted his to hear thwe conversation denies having cp, nausea, vomiting, or diarrhea 08/21/16 drowsy today Family meeting was held today Not arousable easily deneis any complaints thereafter 08/22/16 drowsy again today however was awake all lastnight no additional abnormalities reported. 08/23/16 arousable but lethrgic 2016 Patient is arousable denies having any additional complaints continues to help blood in his Delgado catheter - Exam Physical exam Gen. appearance oriented 3 in no distress Neck is supple no JVD Lungs good air entry clear to auscultation no rhonchi or wheezing Heart S1-S2 heard regular rate and rhythm no murmurs appreciated Abdomen is soft nontender no organomegaly bowel sounds are intact Neurologically cranial nerves II-12 grossly intact no focal motor or sensory deficits noted Skin no abnormalities appreciated Blood noted in the Delgado catheter Assessment and Plan Plan: #1 acute symptomatic anemia secondary to a a GI and source of bleeding. Patient is on xarelto which could account for a GI source of bleeding however after the Delgado/a genitourinary source of bleeding is unlikely from a anticoagulant this is likely from the cancer spread itself. #2 recurrent colorectal cancer appears to be stage IV currently #3 hematorrhea likely from #2 #4 left-sided hydronephrosis secondary to obstructive uropathy secondary to #2 #5 multiple episodes of venous thromboembolism #6 paroxysmal atrial fibrillation, rate controlled increase metoprolol 75mg bid. #7 severe protein calorie malnutrition #8 hypertension. #9 dyslipidemia #10 hypomagnesemia #11 hypokalemia 12. acute toxic encephaloapathy. Patient is discharged home with hospice There was no urinary tract infection. The urinary retention was secondary to cancer infiltration. . Plan - Discharge Summary New Discharge Prescriptions: ALPRAZolam [Xanax] 1 mg PO BID PRN #20 tablet PRN Reason: Anxiety Zolpidem [Ambien] 10 mg PO HS #10 tab fentaNYL 75MCG/HR PATCH [Duragesic 75MCG/HR] 1 patch TRANSDERM Q72H #10 patch oxyCODONE-APAP 10-325MG [Percocet 10-325 mg] 1 each PO Q4H PRN #10 tab PRN Reason: Severe Pain Discharge Medication List Metoprolol Tartrate [Lopressor] 150 mg PO BID 04/07/16 [History] Pantoprazole Sodium [Protonix] 40 mg PO DAILY 04/07/16 [History] Prochlorperazine [Compazine] 10 mg PO Q6H PRN 06/27/16 [History] ALPRAZolam [Xanax] 1 mg PO BID PRN #20 tablet 08/25/16 [Rx] Zolpidem [Ambien] 10 mg PO HS #10 tab 08/25/16 [Rx] fentaNYL 75MCG/HR PATCH [Duragesic 75MCG/HR] 1 patch TRANSDERM Q72H #10 patch [Rx] oxyCODONE-APAP 10-325MG [Percocet 10-325 mg] 1 each PO Q4H PRN #10 tab 08/25/16 [Rx] Activity/Diet/Wound Care/Special Instructions: Elke [facility]ilton Discharge Disposition: HOME WITH HOSPICE
== END 2016-08-25 19:24 | disposition hospice, home (50) | DRG 374 ==
LOC: 6ICU 04:31 → 6SEL 08-19 17:31 → 5ONC 08-24 19:12
PROVIDERS: ADMIT Internal Medicine; ATTEND Internal Medicine
PROC: 30233N1 Transfusion of Nonautologous Red Blood Cells into Peripheral Vein, Percutaneous Approach (ICD-10-PCS; principal; 2016-08-16)
DX: C19 Malignant neoplasm of rectosigmoid junction (principal); E43 Unspecified severe protein-calorie malnutrition; G92 Toxic encephalopathy; J90 Pleural effusion, not elsewhere classified; N17.9 Acute kidney failure, unspecified; R64 Cachexia; I82.402 Acute embolism and thrombosis of unspecified deep veins of left lower extremity; R18.8 Other ascites; C78.6 Secondary malignant neoplasm of retroperitoneum and peritoneum; D62 Acute posthemorrhagic anemia; N13.30 Unspecified hydronephrosis; D69.6 Thrombocytopenia, unspecified; E83.42 Hypomagnesemia; I48.0 Paroxysmal atrial fibrillation; E78.5 Hyperlipidemia, unspecified; E87.6 Hypokalemia; E87.70 Fluid overload, unspecified; F32.9 Major depressive disorder, single episode, unspecified; F41.9 Anxiety disorder, unspecified; G62.9 Polyneuropathy, unspecified; I10 Essential (primary) hypertension; N18.9 Chronic kidney disease, unspecified; N43.3 Hydrocele, unspecified; R31.0 Gross hematuria; Z51.5 Encounter for palliative care; Z79.01 Long term (current) use of anticoagulants; Z79.899 Other long term (current) drug therapy; Z87.891 Personal history of nicotine dependence; Z90.49 Acquired absence of other specified parts of digestive tract; Z92.21 Personal history of antineoplastic chemotherapy; Z92.3 Personal history of irradiation
CPT/HCPCS: 71010; 74000; 74177; 80048; 80053; 81001; 82140; 82378; 83735; 84100; 84132; 85025; 85027; 85610; 85730; 86850; 86900; 86901; 86920; 87077; 87086; 87186; 94760